=== PATIENT | male | born 1950 | race Caucasian/White ===

== ENCOUNTER 2017-05-07 18:29 | Emergency (ER) | payer MEDICARE, BC ==
[2017-05-07 18:41] VITALS: BP 104/77
--- NOTE | 2017-05-07 19:07 | EDM.PDOC ---
ED HPI GENERAL MEDICAL PROBLEM - General Chief Complaint: ENT Problem Stated Complaint: BAD EARACHE Time Seen by Provider: 05/07/17 18:55 Source of Information: Reports: Patient History Limitations: Reports: No Limitations - History of Present Illness INITIAL COMMENTS - FREE TEXT/NARRATIVE: Patient presents to emergency room tonight with complaints of left ear pain and drainage for 1.5 days. Quality: Reports: Ache, Throbbing Severity: Moderate Improves with: Reports: Other (Tried OTC earache drops without relief) Associated Symptoms: Reports: No Other Symptoms Treatments TOOLING SPECIALIST: Reports: Acetaminophen Left Ear Pain Score (Numeric/FACES): 8 - Related Data Allergies Allergy/AdvReac Type Severity Reaction Status Date / Time latex Allergy Rash Verified 10/09/15 19:08 Penicillins Allergy Cannot Verified 10/09/15 19:08 Remember Home Meds: Home Meds buPROPion [buPROPion XL] 300 mg PO DAILY 01/04/15 [History] Allopurinol [Zyloprim] 100 mg PO DAILY 10/09/15 [History] Aspirin [Adult Low Dose Aspirin EC] 81 mg PO DAILY 10/09/15 [History] Furosemide [Lasix] 40 mg PO DAILY 10/09/15 [History] Multivitamin [Multi-Day Vitamins] 1 each PO DAILY 10/09/15 [History] Propranolol [Inderal] 20 mg PO TID 10/09/15 [History] lamoTRIgine 25 mg PO BID 10/09/15 [History] Gabapentin [Neurontin] 400 mg PO DAILY 01/14/16 [History] amLODIPine [Norvasc] 2.5 mg PO DAILY 01/14/16 [History] Ciprofloxacin HCl 750 mg PO DAILY 01/15/16 [History] FLUoxetine [PROzac] 20 mg PO TID 01/15/16 [History] Hydrocodone/Acetaminophen [[place] 5-325] 1 tab PO Q4HR PRN 01/15/16 [History] Past Medical History HEENT History: Reports: Impaired Vision, Other (See Below) Other HEENT History: Wears glasses Cardiovascular History: Reports: High Cholesterol, Hypertension Respiratory History: Reports: Pneumonia, Recurrent, Sleep Apnea Other Respiratory History: Seasonal asthma Gastrointestinal History: Reports: None Genitourinary History: Reports: Other (See Below) Other Genitourinary History: renal failure Musculoskeletal History: Reports: Fracture, Gout Neurological History: Reports: Other (See Below) Other Neuro History: tremors Psychiatric History: Reports: Anxiety, Depression Immunologic History: Reports: Other (See Below) Other Immunologic History: on dialysis - Infectious Disease History Infectious Disease History: Reports: Chicken Pox - Past Surgical History GI Surgical History: Reports: Colonoscopy, Other (See Below) Social & Family History - Family History Family Medical History: Noncontributory - Tobacco Use Smoking Status *Q: Never Smoker Second Hand Smoke Exposure: No - Caffeine Use Caffeine Use: Reports: Coffee - Recreational Drug Use Recreational Drug Use: No ED ROS ENT - Review of Systems Review Of Systems: See Below Constitutional: Denies: Fever, Chills, Malaise HEENT: Reports: Ear Discharge, Ear Pain, Hearing Loss. Denies: Dental Pain, Eye Pain, Nose Pain, Rhinitis, Sinus Problem, Throat Pain, Throat Swelling, Vertigo Cardiovascular: Denies: Chest Pain, Dyspnea on Exertion, Edema, Syncope Endocrine: Reports: No Symptoms GI/Abdominal: Reports: No Symptoms : Reports: No Symptoms Musculoskeletal: Reports: No Symptoms Skin: Reports: No Symptoms Neurological: Reports: No Symptoms Psychiatric: Reports: No Symptoms Hematologic/Lymphatic: Reports: No Symptoms Immunologic: Reports: No Symptoms ED EXAM, ENT - Physical Exam Exam: See Below Text/Narrative:: Morgan is an alert and oriented 66 hear old male presenting with left ear pain and drainage for 36 hours. Exam Limited By: No Limitations General Appearance: Alert, WD/WN, No Apparent Distress Eye Exam: Bilateral Eye: EOMI, Normal Inspection, PERRL Ears: Hearing Loss, Auricular Tenderness, Canal Discharge, TM Dullness, TM Erythema, Other (to left TM. Right TM pearly saunders without erythema or discharge. ). No: TM Perforation Nose: Normal Inspection, Normal Mucousa, No Blood Mouth/Throat: Normal Inspection, Normal Gums, Normal Lips, Normal Oropharynx, Normal Teeth Head: Atraumatic, Normocephalic Neck: Normal Inspection, Supple, Non-Tender, Full Range of Motion. No: Lymphadenopathy (R), Lymphadenopathy (L) Respiratory/Chest: No Respiratory Distress, Lungs Clear, Normal Breath Sounds, No Accessory Muscle Use, Chest Non-Tender Cardiovascular: Normal Peripheral Pulses, Regular Rate, Rhythm, No Edema, No Gallop, No Murmur, No Rub GI/Abdominal: Normal Bowel Sounds, Soft, Non-Tender Back: Normal Inspection, Full Range of Motion. No: CVA Tenderness (R), CVA Tenderness (L) Extremities: Normal Inspection, Normal Range of Motion, Non-Tender, No Pedal Edema, Normal Capillary Refill Neurological: Alert, Oriented, CN II-XII Intact, Normal Cognition, Normal Gait, No Motor/Sensory Deficits Psychiatric: Normal Affect, Normal Mood Skin: Warm, Dry, Intact, Normal Color, No Rash Lymphatic: No Adenopathy Course - Vital Signs Last Recorded V/S: Last Vital Signs Temp 36.2 C 05/07/17 18:40 Pulse 62 05/07/17 18:40 Resp 16 05/07/17 18:40 BP 104/77 05/07/17 18:40 Pulse Ox 95 05/07/17 18:40 Departure - Departure Time of Disposition: 19:05 Disposition: Home, Self-Care 01 Condition: Good Clinical Impression: Otitis externa - Discharge Information Instructions: Otitis Externa Referrals: Gilmar Clarke MD [Primary Care Provider] - Forms: ED Department Discharge Additional Instructions: Keep ear clean and dry. Cipro/dexamethasone ear drops, 4 drops to left ear twice per day for seven days. May use tramadol 50mg, one tablet three times a day for 2 days as needed for pain not controlled with acetaminophen. Follow up with Dr. Clarke in 7 to 10 days for recheck. Return for any worsening. - Assessment/Plan Assessment:: Left otitis externa Plan: Keep ear clean and dry. Cipro/dexamethasone ear drops, 4 drops to left ear twice per day for seven days. May use tramadol 50mg, one tablet three times a day for 2 days as needed for pain not controlled with acetaminophen. Follow up with Dr. Clarke in 7 to 10 days for recheck. Return for any worsening.
== END 2017-05-07 19:18 | disposition home or self-care (01) ==
LOC: JP.ED 18:29
DX: H60.92 Unspecified otitis externa, left ear (principal); E78.00 Pure hypercholesterolemia, unspecified; I10 Essential (primary) hypertension; F41.9 Anxiety disorder, unspecified; F32.9 Major depressive disorder, single episode, unspecified; Z87.01 Personal history of pneumonia (recurrent); Z79.899 Other long term (current) drug therapy; Z91.040 Latex allergy status; Z88.0 Allergy status to penicillin; Z79.82 Long term (current) use of aspirin
CPT/HCPCS: 99283

== ENCOUNTER 2017-05-08 10:32 | Emergency (ER) | payer MEDICARE, BC ==
--- NOTE | 2017-05-08 12:12 | EDM.PDOC ---
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 Daughter called neurologist who's triage nurse advised EMS transport to ED d/t emisis. Patient very limited historian, reviewed old records and history obtained from his daughter who was with him. Sz described as generalized tonic/clonic, with central gaze fixation (no eye deviation). No incontinence or oral injury sustained, but did land on his face in the shower sustaining minor contusion to OS lower lid. Last week has had 2 other seizures. Daughter reports recent (last month) increase in Lamictal dose, but it doesn't seem to be working. No neck pain, facial pain, dental malocclusion, diplopia or headache. Daughter has noted that poor sleep has been a problem due to having to get up frequently to urinate, resulting in falls, as well as not following up to get a new CPAP machine. No generalized symptoms, complaints of pain anywhere, has noted a URI in last week (see y-day note) w/ continued "popping" in his year. No f/c/ns, no change in quality of peritoneal dialisis output, abdominal pain, change in appetite. This am had emisis of recent breakfast content at end of sz (non-bilious) Onset: Today Duration: Minutes:, Getting Worse, Resolved Prior to Arrival Quality: Denies: Ache, Sharp Improves with: Reports: None Associated Symptoms: Reports: No Other Symptoms, Seizure, Weakness. Denies: Chest Pain, Cough, Fever/Chills, Headaches, Loss of Appetite, Nausea/Vomiting - Related Data Allergies Allergy/AdvReac Type Severity Reaction Status Date / Time latex Allergy Rash Verified 10/09/15 19:08 Penicillins Allergy Cannot Verified 10/09/15 19:08 Remember Home Meds: Home Meds buPROPion [buPROPion XL] 300 mg PO DAILY 01/04/15 [History] Allopurinol [Zyloprim] 100 mg PO DAILY 10/09/15 [History] Aspirin [Adult Low Dose Aspirin EC] 81 mg PO DAILY 10/09/15 [History] Furosemide [Lasix] 40 mg PO DAILY 10/09/15 [History] Multivitamin [Multi-Day Vitamins] 1 each PO DAILY 10/09/15 [History] Propranolol [Inderal] 20 mg PO TID 10/09/15 [History] lamoTRIgine 25 mg PO BID 10/09/15 [History] Gabapentin [Neurontin] 400 mg PO DAILY 01/14/16 [History] amLODIPine [Norvasc] 2.5 mg PO DAILY 01/14/16 [History] FLUoxetine [PROzac] 60 mg PO TID 01/15/16 [History] Hydrocodone/Acetaminophen [[place] 5-325] 1 tab PO Q4HR PRN 01/15/16 [History] Neomycin/Polymyxin B Sulf/HC [Urvygter-Kvghnetxq-Bd Ear Soln] 10 ml OT QID 05/08 [History] traMADol [Ultram] 50 mg PO TID PRN 05/08/17 [History] Past Medical History HEENT History: Reports: Impaired Vision, Other (See Below) Other HEENT History: Wears glasses Cardiovascular History: Reports: High Cholesterol, Hypertension Respiratory History: Reports: Pneumonia, Recurrent, Sleep Apnea Other Respiratory History: Seasonal asthma Gastrointestinal History: Reports: None Genitourinary History: Reports: Other (See Below) Other Genitourinary History: renal failure Musculoskeletal History: Reports: Fracture, Gout Neurological History: Reports: Seizure, Other (See Below) Other Neuro History: tremors Psychiatric History: Reports: Anxiety, Depression Immunologic History: Reports: Other (See Below) Other Immunologic History: on dialysis - Infectious Disease History Infectious Disease History: Reports: Chicken Pox - Past Surgical History GI Surgical History: Reports: Colonoscopy Social & Family History - Family History Family Medical History: Noncontributory - Tobacco Use Smoking Status *Q: Never Smoker Second Hand Smoke Exposure: No - Caffeine Use Caffeine Use: Reports: Coffee - Recreational Drug Use Recreational Drug Use: No ED ROS GENERAL - Review of Systems Review Of Systems: See Below (very limited historian) Constitutional: Denies: Fever, Chills, Diaphoresis HEENT: Reports: Other (small hematoma/contusion OS lower orbital rim, no bony injury/TTP) Respiratory: Denies: Shortness of Breath, Cough Cardiovascular: Denies: Chest Pain GI/Abdominal: Denies: Abdominal Pain, Black Stool, Bloody Stool, Constipation, Diarrhea : Reports: Urgency. Denies: Incontinence Musculoskeletal: Reports: No Symptoms Skin: Reports: No Symptoms Neurological: Reports: Confusion, Dizziness, Pre-Existing Deficit, Seizure, Tremors, Difficulty Walking. Denies: Headache, Numbness, Syncope, Tingling Psychiatric: Reports: Confusion Hematologic/Lymphatic: Reports: No Symptoms Immunologic: Reports: No Symptoms ED EXAM, NEURO - Physical Exam Exam: See Below Exam Limited By: Altered Mental Status General Appearance: Alert, WD/WN, No Apparent Distress Ears: Other (L tm retracted, no e/o ottitis). No: Normal TMs Nose: Normal Inspection. No: Nasal Deformity, Nasal Swelling Throat/Mouth: Normal Inspection, Normal Lips, Normal Teeth Head Exam: Atraumatic, Normocephalic. No: Facial Swelling, Facial Tenderness, Sinus Tenderness Neck: Normal Inspection, Supple, Non-Tender, Full Range of Motion Respiratory/Chest: No Respiratory Distress, Crackles (R base) Cardiovascular: Normal Peripheral Pulses GI/Abdominal: Normal Bowel Sounds, Soft, Non-Tender, No Distention Neurological: Alert, Normal Mood/Affect, Normal Dorsiflexion, CN II-XII Intact, Normal Plantar Flexion, Normal Reflexes, No Motor/Sensory Deficits, Ataxia, Abnormal Finger to Nose, Tremor. No: Normal Gait, Oriented x 3, Babinski Back Exam: Normal Inspection. No: CVA Tenderness (R), CVA Tenderness (L), Decreased Range of Motion, Muscle Spasm, Vertebral Tenderness Extremities: Normal Inspection, Normal Range of Motion, Non-Tender Psychiatric: Normal Mood, Other (at baseline level of confusion per daughter) Skin Exam: Warm, Dry, Intact Comments: Neuro: PERRLA no APD, EOMI but some lat gaze nystagmus noted, no rotatory component. Motor x 4 intact, but legs weak (still 5/5). Gross tremor noted, no "pill rolling". Ataxic HKS and FNF Course - Vital Signs Last Recorded V/S: Last Vital Signs Temp 36.9 C 05/08/17 10:43 Pulse 56 L 05/08/17 15:33 Resp 15 05/08/17 14:37 BP 109/59 L 05/08/17 15:33 Pulse Ox 97 05/08/17 14:37 - Orders/Labs/Meds Orders: Active Orders 24 hr Category Date Time Status Chest 1V Frontal [CR] Stat Exams 05/08/17 11:42 Taken Head wo Cont [CT] Stat Exams 05/08/17 11:39 Taken CULTURE URINE [RM] Stat Lab 05/08/17 14:44 Received LAMOTRIGINE [REF] Stat Lab 05/08/17 12:05 Received Labs: Laboratory Tests 05/08/17 05/08/17 05/08/17 Range/Units 12:05 12:05 12:07 WBC 14.2 H (4.5-11.0) K/uL RBC 3.29 L (4.30-5.90) M/uL Hgb 10.8 L D (12.0-15.0) g/dL Hct 32.3 L (40.0-54.0) % MCV 98 (80-98) fL MCH 33 H (27-31) pg MCHC 33 (32-36) % Plt Count 329 (150-400) K/uL Neut % (Auto) 79 H (36-66) % Lymph % (Auto) 11 L (24-44) % [place] % (Auto) 8 H (2-6) % Eos % (Auto) 3 (2-4) % Baso % (Auto) 0 (0-1) % Sodium 130 L (140-148) mmol/L Potassium 4.7 (3.6-5.2) mmol/L Chloride 95 L (100-108) mmol/L Carbon Dioxide 30 (21-32) mmol/L Anion Gap 9.7 (5.0-14.0) mmol/L BUN 54 H D (7-18) mg/dL Creatinine 6.9 H* D (0.8-1.3) mg/dL Est Cr Clr Drug Dosing 10.53 mL/min Estimated GFR (MDRD) 8 L (>60) Glucose 111 H (74-106) mg/dL Calcium 8.2 L (8.5-10.1) mg/dL POC WB Ioniz Calcium 1.05 L (1.12-1.32) mmol/L Total Bilirubin 0.5 (0.2-1.0) mg/dL AST 23 (15-37) U/L ALT 19 (12-78) U/L Alkaline Phosphatase 105 (46-116) U/L Total Protein 7.6 (6.4-8.2) g/dL Albumin 2.5 L (3.4-5.0) g/dL Globulin 5.1 H (2.3-3.5) g/dL Albumin/Globulin Ratio 0.5 L (1.2-2.2) Urine Color Urine Appearance Urine pH (4.5-8.0) Ur Specific [place] (1.008-1.030) Urine Protein (NEGATIVE) mg/dL Urine Glucose (UA) (NEGATIVE) mg/dL Urine Ketones (NEGATIVE) mg/dL Urine Occult Blood (NEGATIVE) Urine Nitrite (NEGAITVE) Urine Bilirubin (NEGATIVE) Urine Urobilinogen (NORMAL) mg/dL Ur Leukocyte Esterase (NEGATIVE) Urine RBC (0-5) Urine WBC (0-5) Ur Epithelial Cells Amorphous Sediment Urine Bacteria Urine Mucus 05/08/17 Range/Units 14:37 WBC (4.5-11.0) K/uL RBC (4.30-5.90) M/uL Hgb (12.0-15.0) g/dL Hct (40.0-54.0) % MCV (80-98) fL MCH (27-31) pg MCHC (32-36) % Plt Count (150-400) K/uL Neut % (Auto) (36-66) % Lymph % (Auto) (24-44) % [place] % (Auto) (2-6) % Eos % (Auto) (2-4) % Baso % (Auto) (0-1) % Sodium (140-148) mmol/L Potassium (3.6-5.2) mmol/L Chloride (100-108) mmol/L Carbon Dioxide (21-32) mmol/L Anion Gap (5.0-14.0) mmol/L BUN (7-18) mg/dL Creatinine (0.8-1.3) mg/dL Est Cr Clr Drug Dosing mL/min Estimated GFR (MDRD) (>60) Glucose (74-106) mg/dL Calcium (8.5-10.1) mg/dL POC WB Ioniz Calcium (1.12-1.32) mmol/L Total Bilirubin (0.2-1.0) mg/dL AST (15-37) U/L ALT (12-78) U/L Alkaline Phosphatase (46-116) U/L Total Protein (6.4-8.2) g/dL Albumin (3.4-5.0) g/dL Globulin (2.3-3.5) g/dL Albumin/Globulin Ratio (1.2-2.2) Urine Color Yellow Urine Appearance Clear Urine pH 8.0 (4.5-8.0) Ur Specific [place] 1.015 (1.008-1.030) Urine Protein 30 H (NEGATIVE) mg/dL Urine Glucose (UA) Normal (NEGATIVE) mg/dL Urine Ketones Negative (NEGATIVE) mg/dL Urine Occult Blood Moderate (NEGATIVE) Urine Nitrite Negative (NEGAITVE) Urine Bilirubin Negative (NEGATIVE) Urine Urobilinogen Normal (NORMAL) mg/dL Ur Leukocyte Esterase Negative (NEGATIVE) Urine RBC 5-10 H (0-5) Urine WBC 0-5 (0-5) Ur Epithelial Cells Few Amorphous Sediment Few Urine Bacteria Rare Urine Mucus Few - Radiology Interpretation Free Text/Narrative:: Head CT showed L busby sinusitis but o/w w/o abnormality, no SDH, etc. CXR shows no e/o aspiration. Worsened labs all c/w progressive renal failure. Departure - Departure Time of Disposition: 15:52 Disposition: Home, Self-Care 01 Clinical Impression: Seizure, Seizure disorder Chronic renal failure Qualifiers: Chronic kidney disease stage: unspecified stage Qualified Code(s): N18.9 - Chronic kidney disease, unspecified - Discharge Information Instructions: Epilepsy, [id number] Referrals: Gilmar Clarke MD [Primary Care Provider] - Forms: ED Department Discharge Additional Instructions: Use bedside urinal at night. Follow up with your kidney doctor and neurologist Jostin twice a day for three days, then once a day Steroid nasal spray Care Plan Goals: Call your Physician or Return to Emergency Department if: * Your condition worsens in any way. * You develop fever greater than 100.4. * You have vomiting. * You have pain that is not controlled with medications. Follow up with Dr Prado Use bedside urinal at night Follow up with your sleep study/new CPAP PERRI - My Orders Last 24 Hours: My Active Orders 05/08/17 11:39 Head wo Cont [CT] Stat 05/08/17 11:42 Chest 1V Frontal [CR] Stat 05/08/17 12:05 LAMOTRIGINE [REF] Stat 05/08/17 14:44 CULTURE URINE [RM] Stat - Assessment/Plan Last 24 Hours: My Active Orders 05/08/17 11:39 Head wo Cont [CT] Stat 05/08/17 11:42 Chest 1V Frontal [CR] Stat 05/08/17 12:05 LAMOTRIGINE [REF] Stat 05/08/17 14:44 CULTURE URINE [RM] Stat Assessment:: No e/o any sort of acute neurologic compromise, but concerning worsening renal function on CAPD. Mild hypocalcemia c/w renal failure, as is anemia. Exam c/w non-infectious eustacian tube dysfunction & sinusitis. Will tx w/o abx for now as asymptomatic and no objective e/o ifxn. Plan: Follow up with existing care providers, Afrin/OTC steroid nasal spray.
[2017-05-08 15:33] VITALS: BP 109/59
--- NOTE | 2017-05-10 11:53 | CR ---
Low lung volumes. Tortuous aorta. No focal consolidation. Pulmonary vasculature within normal limits.
== END 2017-05-08 16:20 | disposition home or self-care (01) ==
LOC: JP.ED 10:32
DX: G40.909 Epilepsy, unspecified, not intractable, without status epilepticus (principal); I12.9 Hypertensive chronic kidney disease with stage 1 through stage 4 chronic kidney disease, or unspecified chronic kidney disease; N18.9 Chronic kidney disease, unspecified; E78.00 Pure hypercholesterolemia, unspecified; Z79.82 Long term (current) use of aspirin; Z79.899 Other long term (current) drug therapy
CPT/HCPCS: 36415; 70450; 71010; 71010-26; 80053; 80175; 81001; 82272; 82330; 85025; 87086; 99284

== ENCOUNTER 2017-06-28 03:29 | Emergency (ER) | payer MEDICARE, BC ==
[2017-06-28] MEDS ORDERED: LORazepam 2 MG/ML MDV IVPUSH ONE (04:18)
[2017-06-28] MEDS ORDERED: Sodium Chloride 0.9% 1,000 ML IV SCH (04:30)
[2017-06-28] MEDS ORDERED: Prochlorperazine 10 MG/2 ML SDV IVPUSH ONE ×2 (04:47→08:10)
--- NOTE | 2017-06-28 06:28 | EDM.PDOC ---
<Sergio Chowdhury - Last Filed: 06/28/17 06:22> ED HPI GENERAL MEDICAL PROBLEM - General Chief Complaint: Gastrointestinal Problem Stated Complaint: MEDICAL [facility]IA [facility] Time Seen by Provider: 06/28/17 04:08 Source of Information: Reports: Patient, Family History Limitations: Reports: Physical Impairment - History of Present Illness INITIAL COMMENTS - FREE TEXT/NARRATIVE: This gentleman is a peritoneal dialysis patient. He presents with severe nausea and vomiting and vertigo. This began about 3 AM after he had mistakenly infused the wrong bag of dialysis fluid. Previously he was supposed to use a yellow bag and a green bag but recently he was told to use just to yellow bags. This morning he mistakenly went back to the previous regiment that is a yellow and a green bag. Shortly after that he began having severe vertigo nausea and vomiting. This was so severe he was lying on the floor and his couldn't get him up. He doesn't think this is related to head movement. He must keep his eyes closed since it helps control the nausea little bit. He's had some problems with his right ear lately and his says it was just swimmers ear. It's not bothering him now - Related Data Allergies Allergy/AdvReac Type Severity Reaction Status Date / Time latex Allergy Rash Verified 06/28/17 03:49 Penicillins Allergy Cannot Verified 06/28/17 03:49 Remember Home Meds: Home Meds Allopurinol [Zyloprim] 200 mg PO DAILY 10/09/15 [History] Aspirin [Adult Low Dose Aspirin EC] 81 mg PO DAILY 10/09/15 [History] Furosemide [Lasix] 40 mg PO DAILY 10/09/15 [History] Propranolol [Inderal] 120 mg PO TID 10/09/15 [History] lamoTRIgine 50 mg PO BEDTIME 10/09/15 [History] Gabapentin [Neurontin] 400 mg PO DAILY 01/14/16 [History] Neomycin/Polymyxin B Sulf/HC [Wtybsmtk-Kujpuldaq-De Ear Soln] 10 ml OT QID 05/08 [History] Folic Acid/Vitamin B Comp W-C [Dialyvite] 1 tab PO DAILY 06/28/17 [History] Magnesium Oxide [Magnesium] 400 mg PO BID 06/28/17 [History] lamoTRIgine [Lamotrigine] 25 mg PO DAILY 06/28/17 [History] Past Medical History HEENT History: Reports: Impaired Vision, Other (See Below) Other HEENT History: Wears glasses Cardiovascular History: Reports: High Cholesterol, Hypertension Respiratory History: Reports: Asthma, Pneumonia, Recurrent, Sleep Apnea Other Respiratory History: Seasonal asthma Gastrointestinal History: Reports: None Genitourinary History: Reports: Chronic Renal Insuffiency, Dialysis, Peritoneal , Renal Disease, Other (See Below) Other Genitourinary History: renal failure Musculoskeletal History: Reports: Fracture, Gout Neurological History: Reports: Seizure, Other (See Below) Other Neuro History: tremors, idiopathetic progressive neuropathy, mild cognitive impairment Psychiatric History: Reports: Anxiety, Depression Immunologic History: Reports: Other (See Below) Other Immunologic History: on dialysis - Infectious Disease History Infectious Disease History: Reports: Chicken Pox - Past Surgical History HEENT Surgical History: Reports: Other (See Below) Other HEENT Surgeries/Procedures: deviated spetum surgery x2. GI Surgical History: Reports: Colonoscopy Male Surgical History: Reports: Vasectomy Musculoskeletal Surgical History: Reports: Other (See Below) Other Musculoskeletal Surgeries/Procedures:: right ankle Social & Family History - Family History Family Medical History: Noncontributory - Tobacco Use Smoking Status *Q: Never Smoker Second Hand Smoke Exposure: No - Caffeine Use Caffeine Use: Reports: Coffee - Recreational Drug Use Recreational Drug Use: No ED ROS GENERAL - Review of Systems Review Of Systems: Unable To Obtain (Nearly all the history is given by his since patient is quite ill) ED EXAM, GI/ABD - Physical Exam Exam: See Below Exam Limited By: Physical Impairment General Appearance: Alert, WD/WN, Severe Distress (Severe vomiting and dry heaves) Eyes: Bilateral: EOMI (PERRLA ), Nystagmus (Horizontal nystagmus) Ears: Normal TMs Nose: Normal Inspection Throat/Mouth: Normal Oropharynx Head: Atraumatic Neck: Normal Inspection Respiratory/Chest: Lungs Clear Cardiovascular: Regular Rate, Rhythm GI/Abdominal Exam: Soft, Non-Tender Extremities: Normal Inspection Neurological: Alert, Oriented, CN II-XII Intact (Last diagnosis previously noted ), Normal Cognition Psychiatric: Normal Affect Skin Exam: Warm, Dry Course - Vital Signs Last Recorded V/S: Last Vital Signs Temp 97 F 06/28/17 03:47 Pulse 62 06/28/17 07:53 Resp 16 06/28/17 07:53 BP 186/116 H 06/28/17 07:53 Pulse Ox 93 L 06/28/17 07:53 - Orders/Labs/Meds Orders: Active Orders 24 hr Category Date Time Status Head wo Cont [CT] Stat Exams 06/28/17 04:37 Taken Labs: Laboratory Tests 06/28/17 06/28/17 Range/Units 05:00 05:00 WBC 14.7 H (4.5-11.0) K/uL RBC 2.81 L (4.30-5.90) M/uL Hgb 9.0 L (12.0-15.0) g/dL Hct 27.9 L (40.0-54.0) % MCV 99 H (80-98) fL MCH 32 H (27-31) pg MCHC 32 (32-36) % Plt Count 409 H (150-400) K/uL Neut % (Auto) 83 H (36-66) % Lymph % (Auto) 9 L (24-44) % Kinney % (Auto) 6 (2-6) % Eos % (Auto) 2 (2-4) % Baso % (Auto) 0 (0-1) % Sodium 135 L (140-148) mmol/L Potassium 4.1 (3.6-5.2) mmol/L Chloride 99 L (100-108) mmol/L Carbon Dioxide 25 (21-32) mmol/L Anion Gap 15.1 H (5.0-14.0) mmol/L BUN 46 H (7-18) mg/dL Creatinine 5.7 H* (0.8-1.3) mg/dL Est Cr Clr Drug Dosing 12.75 mL/min Estimated GFR (MDRD) 10 L (>60) Glucose 129 H (74-106) mg/dL Calcium 8.3 L (8.5-10.1) mg/dL Total Bilirubin 0.7 (0.2-1.0) mg/dL AST 23 (15-37) U/L ALT 18 (12-78) U/L Alkaline Phosphatase 73 (46-116) U/L Total Protein 7.1 (6.4-8.2) g/dL Albumin 2.1 L (3.4-5.0) g/dL Globulin 5.0 H (2.3-3.5) g/dL Albumin/Globulin Ratio 0.4 L (1.2-2.2) Meds: Medications Discontinued Medications Generic Name Dose Route Start Last Admin Trade Name Eladio PRN Reason Stop Dose Admin Sodium Chloride 1,000 mls @ 999 mls/hr 06/28/17 04:30 06/28/17 04:21 Normal Saline IV 999 mls/hr ASDIRECTED GLORIA Administration Lorazepam 1 mg 06/28/17 04:18 06/28/17 04:25 Ativan IVPUSH 06/28/17 04:19 1 mg ONETIME ONE Administration Ondansetron HCl 4 mg 06/28/17 07:47 06/28/17 07:51 Zofran IVPUSH 06/28/17 07:48 4 mg ONETIME ONE Administration Prochlorperazine Edisylate 5 mg 06/28/17 04:47 06/28/17 04:58 Compazine IVPUSH 06/28/17 04:48 5 mg ONETIME ONE Administration Prochlorperazine Edisylate 10 mg 06/28/17 08:10 06/28/17 08:17 Compazine IVPUSH 06/28/17 08:11 10 mg ONETIME ONE Administration - Radiology Interpretation Free Text/Narrative:: CT of the head showed no acute intracranial process - Re-Assessments/Exams Free Text/Narrative Re-Assessment/Exam: 06/28/17 06:31 This patient had received 4 mg IV Zofran by EMS but that gave little benefit. Since this last diagnosis and vomiting seemed possibly related to a middle ear problem I gave him Ativan 1 mg IV. Within began a bolus of 1 L IV normal saline. He had already received 500 mL by EMS. An EKG was performed which showed a sinus rhythm at 58 bpm some borderline left axis deviation and borderline prolonged QT but no ischemic changes When the patient came back from CT he was still having significant nausea so he received Compazine 5 mg IV. This seemed to control his symptoms pretty well. I examined his eyes again and I no longer see any nystagmus. I did do some cerebellar checks such as rapid alternating movements of the hands and heel to li testing which he did fairly well on. He was too ill to do anything else. I' m convinced that this is not a cerebellar stroke. He is moderately sedated. He arouses to voice. At this point I'm not sure if this has any relationship to his dialysis or not. Labs were reviewed there is nothing unusual about them. Once the patient is awake and alert he'll need to be reexamined. Departure - Departure Disposition: DC/Tfer to Other 70 Clinical Impression: Vertigo Intractable nausea and vomiting Qualifiers: Vomiting type: unspecified Qualified Code(s): R11.2 - Nausea with vomiting, unspecified Renal failure Qualifiers: Renal failure chronicity: chronic Chronic kidney disease stage: on chronic dialysis Qualified Code(s): N18.6 - End stage renal disease - Discharge Information Referrals: Gilmar Clarke MD [Primary Care Provider] - Forms: ED Department Discharge Care Plan Goals: Due to our being unable to control the patient's symptoms, he was transferred to [place] to continue symptomatic care, evaluation, and peritoneal dialysis. <Maximilian Patel - Last Filed: 06/28/17 08:51> Course - Re-Assessments/Exams Free Text/Narrative Re-Assessment/Exam: 06/28/17 08:06 Received patient care from Dr. Chowdhury, pending the patient wakening to see if his symptoms had improved. When he woke he still had intense nausea and any movement caused emesis. There was no headache. He wanted to try to go home but when he sat up to try to put his shirt on he had to lay back down. There is just no way this patient can be discharged. I discussed his condition with neurology and the hospitalist service at [facility] in [place], and he was kindly accepted to be evaluated. 06/28/17 08:10 Patient was given 4 mg of Zofran which did nothing. He seemed to respond to 5 mg of Compazine IV 4 hours ago so this was repeated although a a 10 mg dose. Departure - Departure Time of Disposition: 08:45 Condition: Fair
[2017-06-28] MEDS ORDERED: Ondansetron 4 MG/2 ML SDV IVPUSH ONE (07:47)
[2017-06-28 07:54] VITALS: BP 186/116
== END 2017-06-28 08:46 | disposition other institution (70) ==
LOC: JP.ED 03:29
DX: I12.0 Hypertensive chronic kidney disease with stage 5 chronic kidney disease or end stage renal disease (principal); N18.6 End stage renal disease; F32.9 Major depressive disorder, single episode, unspecified; R11.2 Nausea with vomiting, unspecified; Z99.2 Dependence on renal dialysis; Z79.899 Other long term (current) drug therapy; Z88.0 Allergy status to penicillin; Z91.040 Latex allergy status; Z79.82 Long term (current) use of aspirin
CPT/HCPCS: 36415; 70450; 80053; 85025; 93005; 93010; 96361; 96374; 96375; 96376; 99285; J0780; J2060; J2405; J7040

== ENCOUNTER 2017-07-16 11:48 | Emergency (ER) | payer MEDICARE, BC ==
--- NOTE | 2017-07-16 12:56 | EDM.PDOC ---
ED HPI GENERAL MEDICAL PROBLEM - General Chief Complaint: General Stated Complaint: dizzy Time Seen by Provider: 07/16/17 12:45 Source of Information: Reports: Patient, RN Notes Reviewed History Limitations: Reports: No Limitations - History of Present Illness INITIAL COMMENTS - FREE TEXT/NARRATIVE: 66-year-old gentleman known history of end-stage renal disease on peritoneal dialysis accidentally took a double dose of lisinopril this morning normally takes 5 mg bid accidentally took 10 mg. Reported to the clinic for evaluation he was hypotensive in the clinic systolic blood pressures on 80 he did not feel well subsequent transported to the emergency department for further evaluation, review of literature shows half-life of lisinopril to be 12 hours - Related Data Allergies Allergy/AdvReac Type Severity Reaction Status Date / Time latex Allergy Rash Verified 06/28/17 03:49 Penicillins Allergy Cannot Verified 06/28/17 03:49 Remember Home Meds: Home Meds Allopurinol [Zyloprim] 200 mg PO DAILY 10/09/15 [History] Aspirin [Adult Low Dose Aspirin EC] 81 mg PO DAILY 10/09/15 [History] Furosemide [Lasix] 40 mg PO DAILY 10/09/15 [History] Propranolol [Inderal] 60 mg PO BID 10/09/15 [History] lamoTRIgine 50 mg PO BEDTIME 10/09/15 [History] Neomycin/Polymyxin B Sulf/HC [Hasmuqmo-Kwttftinj-Kl Ear Soln] 10 ml OT QID 05/08 [History] Folic Acid/Vitamin B Comp W-C [Dialyvite] 1 tab PO DAILY 06/28/17 [History] Magnesium Oxide [Magnesium] 400 mg PO BID 06/28/17 [History] lamoTRIgine [Lamotrigine] 25 mg PO QAM 06/28/17 [History] Ciprofloxacin [IMW: Ciprofloxacin HCl] 750 mg PO ASDIRECTED PRN 07/16/17 [ History] Gabapentin [Neurontin] 1 tab PO DAILY 07/16/17 [History] Lisinopril 1 tab PO DAILY 07/16/17 [History] Past Medical History HEENT History: Reports: Impaired Vision, Other (See Below) Other HEENT History: Wears glasses Cardiovascular History: Reports: High Cholesterol, Hypertension Respiratory History: Reports: Asthma, Pneumonia, Recurrent, Sleep Apnea Other Respiratory History: Seasonal asthma Genitourinary History: Reports: Chronic Renal Insuffiency, Dialysis, Peritoneal , Renal Disease, Other (See Below) Other Genitourinary History: renal failure Musculoskeletal History: Reports: Fracture, Gout Neurological History: Reports: Seizure, Other (See Below) Other Neuro History: tremors, idiopathetic progressive neuropathy, mild cognitive impairment Psychiatric History: Reports: Anxiety, Depression Immunologic History: Reports: Other (See Below) Other Immunologic History: on dialysis - Infectious Disease History Infectious Disease History: Reports: Chicken Pox - Past Surgical History HEENT Surgical History: Reports: Other (See Below) Other HEENT Surgeries/Procedures: deviated spetum surgery x2. GI Surgical History: Reports: Colonoscopy Male Surgical History: Reports: Vasectomy Musculoskeletal Surgical History: Reports: Other (See Below) Other Musculoskeletal Surgeries/Procedures:: right ankle Social & Family History - Family History Family Medical History: Noncontributory - Tobacco Use Smoking Status *Q: Never Smoker Second Hand Smoke Exposure: No - Caffeine Use Caffeine Use: Reports: Coffee - Recreational Drug Use Recreational Drug Use: No ED ROS GENERAL - Review of Systems Review Of Systems: See Below Constitutional: Reports: No Symptoms HEENT: Reports: No Symptoms Respiratory: Reports: No Symptoms Cardiovascular: Reports: Blood Pressure Problem GI/Abdominal: Reports: No Symptoms : Reports: No Symptoms ED EXAM, GENERAL - Physical Exam Exam: See Below Exam Limited By: No Limitations General Appearance: Alert, WD/WN, No Apparent Distress Respiratory/Chest: No Respiratory Distress, Lungs Clear, Normal Breath Sounds, No Accessory Muscle Use Cardiovascular: Regular Rate, Rhythm, No Murmur Course - Vital Signs Last Recorded V/S: Last Vital Signs Temp 96.6 F 07/16/17 12:27 Pulse 65 07/16/17 13:30 Resp 16 07/16/17 13:30 BP 92/68 07/16/17 13:30 Pulse Ox 98 07/16/17 13:30 - Orders/Labs/Meds Labs: Laboratory Tests 07/16/17 07/16/17 Range/Units 13:05 13:05 WBC 11.2 H (4.5-11.0) K/uL RBC 2.98 L (4.30-5.90) M/uL Hgb 9.6 L (12.0-15.0) g/dL Hct 30.4 L (40.0-54.0) % MCV 102 H (80-98) fL MCH 32 H (27-31) pg MCHC 32 (32-36) % Plt Count 443 H (150-400) K/uL Neut % (Auto) 69 H (36-66) % Lymph % (Auto) 19 L (24-44) % Patrick % (Auto) 10 H (2-6) % Eos % (Auto) 2 (2-4) % Baso % (Auto) 0 (0-1) % Sodium 137 L (140-148) mmol/L Potassium 4.6 (3.6-5.2) mmol/L Chloride 100 (100-108) mmol/L Carbon Dioxide 28 (21-32) mmol/L Anion Gap 13.6 (5.0-14.0) mmol/L BUN 64 H (7-18) mg/dL Creatinine 7.5 H* (0.8-1.3) mg/dL Est Cr Clr Drug Dosing TNP Estimated GFR (MDRD) 7 L (>60) Glucose 141 H (74-106) mg/dL Calcium 9.0 (8.5-10.1) mg/dL Departure - Departure Time of Disposition: 14:01 Disposition: Home, Self-Care 01 Condition: Fair Clinical Impression: Hypotension Qualifiers: Hypotension type: hypotension due to drug Qualified Code(s): I95.2 - Hypotension due to drugs - Discharge Information Referrals: Gilmar Clarke MD [Primary Care Provider] - Forms: ED Department Discharge Additional Instructions: Please coordinate with your paving inspector on peritoneal dialysis, Please followup with your primary care provider in 3-5 days if not better, please call return to the emergency department with worsening of symptoms. - Assessment/Plan Plan: Assessment Acuity = acute Site and laterality = hypotension complicating the patient with known history of end-stage renal disease on peritoneal dialysis Etiology = secondary to accidental blood pressure medication overdose Manifestations = none Location of injury = Home Lab values = hemoglobin 9.6 consistent microchromic anemia creatinine elevated 7.5 consistent chronic renal failure stage GV D Plan He has had some improvement since being sent over from the clinic was able to tolerate a meal and fluids his plan is to go home and do peritenon dialysis run now, and coordinate with his paving inspector I did talk to him about transfer and hospitalization of which she declined at this time Patient was in agreement with the plan all questions were answered, they were instructed to return to the emergency department or call for worsening symptoms. This note was dictated using [employer] voice recognition software please call with any questions.
[2017-07-16 13:43] VITALS: BP 92/68
== END 2017-07-16 14:14 | disposition home or self-care (01) ==
LOC: JP.ED 11:48
DX: I95.2 Hypotension due to drugs (principal); I12.0 Hypertensive chronic kidney disease with stage 5 chronic kidney disease or end stage renal disease; N18.6 End stage renal disease; Z79.82 Long term (current) use of aspirin; Z79.899 Other long term (current) drug therapy; Z91.040 Latex allergy status; Z88.0 Allergy status to penicillin
CPT/HCPCS: 36415; 80048; 85025; 99283; 99284

== ENCOUNTER 2018-02-07 17:26 | Emergency (ER) | payer MEDICARE, BC ==
[2018-02-07 17:46] VITALS: BP 165/101
== END 2018-02-07 18:45 | disposition left against medical advice (07) ==
LOC: JP.ED 17:26
DX: Z53.21 Procedure and treatment not carried out due to patient leaving prior to being seen by health care provider (principal)

== ENCOUNTER 2018-04-09 23:32 | Emergency (ER) | payer MEDICARE, BC ==
--- NOTE | 2018-04-10 01:05 | EDM.PDOC ---
ED HPI GENERAL MEDICAL PROBLEM - General Chief Complaint: ENT Problem Stated Complaint: EAR PAIN Time Seen by Provider: 04/10/18 00:42 Source of Information: Reports: Patient History Limitations: Reports: No Limitations - History of Present Illness INITIAL COMMENTS - FREE TEXT/NARRATIVE: Chronic rt ear pain. Seeing ENT though not recently. Was on course oral antibiotics but was taken off and told to use Auralgan. Now pain back and severe. Can't get in to see ENT for awhile. No fever. Auralgan drops not helping. right ear Pain Score (Numeric/FACES): 10 - Related Data Allergies Allergy/AdvReac Type Severity Reaction Status Date / Time latex Allergy Rash Verified 04/10/18 00:32 Penicillins Allergy Cannot Verified 04/10/18 00:32 Remember Home Meds: Home Meds Allopurinol [Zyloprim] 200 mg PO DAILY 10/09/15 [History] Aspirin [Adult Low Dose Aspirin EC] 81 mg PO DAILY 10/09/15 [History] Furosemide [Lasix] 40 mg PO DAILY 10/09/15 [History] Propranolol [Inderal] 60 mg PO BID 10/09/15 [History] lamoTRIgine 50 mg PO BEDTIME 10/09/15 [History] Neomycin/Polymyxin B Sulf/HC [Txfinjcm-Loxsfudqu-Pk Ear Soln] 10 ml OT QID 05/08 [History] Folic Acid/Vit B Complex and C [Dialyvite] 1 tab PO DAILY 06/28/17 [History] Magnesium Oxide [Magnesium] 400 mg PO BID 06/28/17 [History] lamoTRIgine [Lamotrigine] 25 mg PO QAM 06/28/17 [History] Ciprofloxacin [IMW: Ciprofloxacin HCl] 750 mg PO ASDIRECTED PRN 07/16/17 [ History] Gabapentin [Neurontin] 1 tab PO DAILY 07/16/17 [History] Lisinopril 1 tab PO DAILY 07/16/17 [History] Past Medical History HEENT History: Reports: Impaired Vision, Other (See Below) Other HEENT History: Wears glasses Cardiovascular History: Reports: High Cholesterol, Hypertension Respiratory History: Reports: Asthma, Pneumonia, Recurrent, Sleep Apnea Other Respiratory History: Seasonal asthma Gastrointestinal History: Reports: None Genitourinary History: Reports: Chronic Renal Insuffiency, Dialysis, Peritoneal , Renal Disease, Other (See Below) Other Genitourinary History: renal failure Musculoskeletal History: Reports: Fracture, Gout Neurological History: Reports: Seizure, Other (See Below) Other Neuro History: tremors, idiopathetic progressive neuropathy, mild cognitive impairment Psychiatric History: Reports: Anxiety, Depression Immunologic History: Reports: Other (See Below) Other Immunologic History: on dialysis Dermatologic History: Reports: Psoriasis - Infectious Disease History Infectious Disease History: Reports: Chicken Pox, Measles, Mumps - Past Surgical History HEENT Surgical History: Reports: Other (See Below) Other HEENT Surgeries/Procedures: deviated spetum surgery x2. GI Surgical History: Reports: Colonoscopy Male Surgical History: Reports: Vasectomy Musculoskeletal Surgical History: Reports: Other (See Below) Other Musculoskeletal Surgeries/Procedures:: right ankle Social & Family History - Family History Family Medical History: Noncontributory - Tobacco Use Smoking Status *Q: Never Smoker - Caffeine Use Caffeine Use: Reports: Coffee - Recreational Drug Use Recreational Drug Use: No ED ROS ENT - Review of Systems Review Of Systems: ROS reveals no pertinent complaints other than HPI. ED EXAM, ENT - Physical Exam Exam: See Below Exam Limited By: No Limitations General Appearance: Alert, WD/WN, Mild Distress Ears: Other (RT canal wet but not defiitely red. TM mottled with some redness superiorly. Not bulging. Mastoid non-tender. This all on RT ear.) Mouth/Throat: Normal Inspection, Normal Oropharynx Neck: Normal Inspection Course - Vital Signs Last Recorded V/S: Last Vital Signs Temp 36.5 C 04/10/18 00:28 Pulse 66 04/10/18 00:28 Resp 21 H 04/10/18 00:28 BP 192/117 H 04/10/18 00:28 Pulse Ox 99 04/10/18 00:28 Departure - Departure Time of Disposition: 01:03 Disposition: Home, Self-Care 01 Condition: Fair Clinical Impression: Otitis media - Discharge Information Referrals: Gilmar Clarke MD [Primary Care Provider] - Additional Instructions: There may be some infection in the middle ear and there may also be some infection in the ear canal. Take Cipro 500 mg twice daily for 10 days. Also use the cortisporing drops. For pain use Lynden 5/325 (#20) 1 or 2 every 4 hours as neede for pain. May cauuse sedation or impair driving and can be addicting.
[2018-04-10 01:43] VITALS: BP 191/117
== END 2018-04-10 01:20 | disposition home or self-care (01) ==
LOC: JP.ED 23:32
DX: H66.91 Otitis media, unspecified, right ear (principal); I12.9 Hypertensive chronic kidney disease with stage 1 through stage 4 chronic kidney disease, or unspecified chronic kidney disease; N18.9 Chronic kidney disease, unspecified; Z79.899 Other long term (current) drug therapy; Z79.82 Long term (current) use of aspirin; Z91.040 Latex allergy status; Z88.0 Allergy status to penicillin
CPT/HCPCS: 99283

== ENCOUNTER 2019-02-01 07:27 | Day surgery (SDC) | payer MEDICARE, BC ==
[~2019-02-01 07:27] MED LIST: Propofol 200 MG/20 ML SDV ONE; fentaNYL 100 MCG/2 ML SDV ONE
[2019-02-01] MEDS ORDERED: Lactated Ringers 1,000 ML IV SCH (08:15)
[2019-02-01 09:23] VITALS: BP 156/102
--- NOTE | 2019-02-01 14:44 | OR ---
DATE OF PROCEDURE: 02/01/2019 PREOPERATIVE DIAGNOSIS: History of adenomatous colon polyps. POSTOPERATIVE DIAGNOSES: Diverticulosis. History of adenomatous colon polyps. PROCEDURE: Colonoscopy to the cecum. SURGEON: lEvin Mayers MD ANESTHESIA: IV anesthesia with monitored anesthesia care. INDICATION: This 68-year-old white male is referred for a colonoscopy because of a history of adenomatous colon polyps. His last colonoscopic exam was done 3 years ago. I counseled him for the procedure, including risks and alternatives, and he gave his informed consent to proceed. DESCRIPTION OF PROCEDURE: The patient was placed in the left lateral decubitus position. IV anesthesia was administered by the Anesthesia Service. Time-out was held. A rectal exam was performed, which was unremarkable. The flexible video Olympus colonoscope was introduced through his anus, up his rectum and out his colon, all the way to the cecum. En route, we saw a few scattered left-sided diverticula. There was no bleeding or inflammation associated with any of them. Once the cecum was reached, the scope was slowly withdrawn examining the mucosa throughout. No additional mucosal abnormalities were noted. No neoplastic lesions were seen. The scope was retroflexed in the rectum with the distal rectum appearing unremarkable. The scope was straightened and removed. He tolerated the procedure well. Elvin Mayers MD /[id number]
== END 2019-02-01 09:35 | disposition home or self-care (01) ==
LOC: JP.SDS 07:27
PROVIDERS: ATTEND Surgery
DX: Z12.11 Encounter for screening for malignant neoplasm of colon (principal); K57.30 Diverticulosis of large intestine without perforation or abscess without bleeding; I12.9 Hypertensive chronic kidney disease with stage 1 through stage 4 chronic kidney disease, or unspecified chronic kidney disease; N18.3 Chronic kidney disease, stage 3 (moderate); E78.5 Hyperlipidemia, unspecified; G47.33 Obstructive sleep apnea (adult) (pediatric); J45.909 Unspecified asthma, uncomplicated; Z88.0 Allergy status to penicillin; Z88.8 Allergy status to other drugs, medicaments and biological substances; Z91.040 Latex allergy status; Z99.2 Dependence on renal dialysis; Z86.010 Personal history of colon polyps
CPT/HCPCS: G0105; J2704; J3010; J7120

== ENCOUNTER 2019-12-01 10:31 | Emergency (ER) | payer MEDICARE, BC ==
--- NOTE | 2019-12-01 11:16 | EDM.PDOC ---
ED HPI GENERAL MEDICAL PROBLEM - General Chief Complaint: General Stated Complaint: VOMITNG,WEAKNESS Time Seen by Provider: 12/01/19 11:12 Source of Information: Reports: Patient, Family History Limitations: Reports: No Limitations - History of Present Illness INITIAL COMMENTS - FREE TEXT/NARRATIVE: pt does home dialysis and he has been doing that daily. He has been weaker and more sob for the past several days. He has not had a fever. He has vomited starting yesterday and today. He does not have abdomanal pain. Duration: Day(s): Location: Reports: Generalized Associated Symptoms: Reports: Malaise, Nausea/Vomiting, Weakness - Related Data Allergies Allergy/AdvReac Type Severity Reaction Status Date / Time bupropion [From Wellbutrin] Allergy Other Verified 01/30/19 15:18 latex Allergy Rash Verified 01/30/19 15:18 Penicillins Allergy Cannot Verified 01/30/19 15:18 Remember Home Meds: Home Meds Allopurinol [Zyloprim] 100 mg PO BID 10/09/15 [History] Aspirin [Adult Low Dose Aspirin EC] 81 mg PO DAILY 10/09/15 [History] Furosemide [Lasix] 40 mg PO DAILY 10/09/15 [History] Propranolol [Inderal] 60 mg PO BID 10/09/15 [History] Folic Acid/Vit B Complex and C [Dialyvite] 1 tab PO DAILY 06/28/17 [History] Magnesium Oxide [Magnesium] 400 mg PO BID 06/28/17 [History] Gabapentin [Neurontin] 400 mg PO DAILY 07/16/17 [History] Albuterol Sulfate [Proair Hfa] 2 puff IH Q4H PRN 01/30/19 [History] Escitalopram [Lexapro] 20 mg PO DAILY 01/30/19 [History] Fluticasone Propionate [Flonase] 2 spray NASBOTH BID 01/30/19 [History] Docusate Sodium [Colace] 200 mg PO DAILY 02/01/19 [History] Loratadine [Claritin] 10 mg PO DAILY 02/01/19 [History] calcitrioL [Calcitriol] 0.25 mcg PO .MWF 02/01/19 [History] Past Medical History HEENT History: Reports: Impaired Vision, Other (See Below) Other HEENT History: Wears glasses Cardiovascular History: Reports: High Cholesterol, Hypertension Respiratory History: Reports: Asthma, Pneumonia, Recurrent, Sleep Apnea Other Respiratory History: Seasonal asthma Gastrointestinal History: Reports: None, Colon Polyp Genitourinary History: Reports: Chronic Renal Insuffiency, Dialysis, Peritoneal , Renal Disease, Other (See Below) Other Genitourinary History: renal failure Musculoskeletal History: Reports: Fracture, Gout Neurological History: Reports: Seizure, Other (See Below) Other Neuro History: tremors, idiopathetic progressive neuropathy, mild cognitive impairment Psychiatric History: Reports: Anxiety, Depression Immunologic History: Reports: Other (See Below) Other Immunologic History: on dialysis Dermatologic History: Reports: Psoriasis - Infectious Disease History Infectious Disease History: Reports: Chicken Pox - Past Surgical History HEENT Surgical History: Reports: Other (See Below) Other HEENT Surgeries/Procedures: deviated spetum surgery x2. Cardiovascular Surgical History: Reports: None GI Surgical History: Reports: Colonoscopy Male Surgical History: Reports: Vasectomy Neurological Surgical History: Reports: None Musculoskeletal Surgical History: Reports: Other (See Below) Other Musculoskeletal Surgeries/Procedures:: right ankle Social & Family History - Family History Family Medical History: Noncontributory - Tobacco Use Smoking Status *Q: Never Smoker - Caffeine Use Caffeine Use: Reports: Coffee - Recreational Drug Use Recreational Drug Use: No ED ROS GENERAL - Review of Systems Review Of Systems: See Below Constitutional: Reports: Malaise, Weakness, Other (pt has been ) HEENT: Reports: No Symptoms Respiratory: Reports: Shortness of Breath, Cough Cardiovascular: Reports: No Symptoms Endocrine: Reports: No Symptoms GI/Abdominal: Reports: Nausea, Vomiting : Reports: No Symptoms Musculoskeletal: Reports: No Symptoms Skin: Reports: No Symptoms Neurological: Reports: Other (pt has been very sleepy. ) Psychiatric: Reports: No Symptoms ED EXAM, GENERAL - Physical Exam Exam: See Below Free Text/Narrative:: pt arrived with a cough and sob. he has been vomiting for the last 2 days. He does not have abdomanal pain. Exam Limited By: No Limitations General Appearance: Alert, Anxious, Mild Distress, Other (pt does have good o2 sats. ) Ears: Normal TMs Nose: Normal Inspection Throat/Mouth: Normal Inspection Head: Atraumatic Neck: Normal Inspection Respiratory/Chest: No Respiratory Distress, Crackles Cardiovascular: Regular Rate, Rhythm GI/Abdominal: Soft, Other ( the dialysis cath site looks good. ) (Male) Exam: Deferred Rectal (Males) Exam: Deferred Back Exam: Normal Inspection Extremities: Normal Inspection Neurological: Alert, Oriented, Normal Cognition Course - Vital Signs Last Recorded V/S: Last Vital Signs Temp 36.8 C 12/01/19 10:47 Pulse 67 12/01/19 10:47 Resp 16 12/01/19 10:47 BP 165/103 H 12/01/19 10:47 Pulse Ox 100 12/01/19 10:47 - Orders/Labs/Meds Orders: Active Orders 24 hr Category Date Time Status Sodium Chloride 0.9% [Normal Saline] 1,000 ml Med 12/01/19 11:30 Active IV ASDIRECTED Medication Orders Sodium Chloride (Normal Saline) 1,000 mls @ 500 mls/hr IV ASDIRECTED GLORIA Last Admin: 12/01/19 11:29 Dose: 500 mls/hr Labs: Laboratory Tests 12/01/19 12/01/19 12/01/19 Range/Units 11:03 11:15 11:16 WBC 15.2 H (4.5-11.0) K/uL RBC 3.38 L (4.30-5.90) M/uL Hgb 11.0 L (12.0-15.0) g/dL Hct 34.3 L (40.0-54.0) % MCV 102 H (80-98) fL MCH 33 H (27-31) pg MCHC 32 (32-36) % Plt Count 285 (150-400) K/uL Neut % (Auto) 75 H (36-66) % Lymph % (Auto) 12 L (24-44) % [place] % (Auto) 11 H (2-6) % Eos % (Auto) 1 L (2-4) % Baso % (Auto) 0 (0-1) % Sodium (140-148) mmol/L Potassium (3.6-5.2) mmol/L Chloride (100-108) mmol/L Carbon Dioxide (21-32) mmol/L Anion Gap (5.0-14.0) mmol/L BUN (7-18) mg/dL Creatinine (0.8-1.3) mg/dL Est Cr Clr Drug Dosing mL/min Estimated GFR (MDRD) (>60) Glucose (74-106) mg/dL Calcium (8.5-10.1) mg/dL Iron 35 L (65-175) ug/dL TIBC 199 L (250-450) ug/dl % Saturation 18 L (20-55) % Total Bilirubin (0.2-1.0) mg/dL AST (15-37) U/L ALT (12-78) U/L Alkaline Phosphatase (46-116) U/L NT-Pro-B Natriuret Pep (5-125) pg/mL Total Protein (6.4-8.2) g/dL Albumin (3.4-5.0) g/dL Globulin (2.3-3.5) g/dL Albumin/Globulin Ratio (1.2-2.2) Urine Color Yellow (YELLOW) Urine Appearance Clear (CLEAR) Urine pH 7.5 (5.0-8.0) Ur Specific [place] 1.020 (1.008-1.030) Urine Protein 100 H (NEGATIVE) mg/dL Urine Glucose (UA) Negative (NEGATIVE) mg/dL Urine Ketones Negative (NEGATIVE) mg/dL Urine Occult Blood Small H (NEGATIVE) Urine Nitrite Negative (NEGATIVE) Urine Bilirubin Negative (NEGATIVE) Urine Urobilinogen 0.2 (0.2-1.0) EU/dL Ur Leukocyte Esterase Negative (NEGATIVE) Urine RBC 0-5 (0-5) Urine WBC Not seen (0-5) Ur Epithelial Cells Not seen Amorphous Sediment Not seen Urine Bacteria Not seen Urine Mucus Not seen 12/01/19 12/01/19 Range/Units 11:16 11:16 WBC (4.5-11.0) K/uL RBC (4.30-5.90) M/uL Hgb (12.0-15.0) g/dL Hct (40.0-54.0) % MCV (80-98) fL MCH (27-31) pg MCHC (32-36) % Plt Count (150-400) K/uL Neut % (Auto) (36-66) % Lymph % (Auto) (24-44) % [place] % (Auto) (2-6) % Eos % (Auto) (2-4) % Baso % (Auto) (0-1) % Sodium 135 L (140-148) mmol/L Potassium 4.3 (3.6-5.2) mmol/L Chloride 94 L (100-108) mmol/L Carbon Dioxide 31 (21-32) mmol/L Anion Gap 14.3 H (5.0-14.0) mmol/L BUN 78 H* (7-18) mg/dL Creatinine 7.3 H* (0.8-1.3) mg/dL Est Cr Clr Drug Dosing 9.55 mL/min Estimated GFR (MDRD) 7 L (>60) Glucose 93 (74-106) mg/dL Calcium 9.0 (8.5-10.1) mg/dL Iron (65-175) ug/dL TIBC (250-450) ug/dl % Saturation (20-55) % Total Bilirubin 0.6 (0.2-1.0) mg/dL AST 20 (15-37) U/L ALT 26 (12-78) U/L Alkaline Phosphatase 70 (46-116) U/L NT-Pro-B Natriuret Pep 1785 H (5-125) pg/mL Total Protein 7.1 (6.4-8.2) g/dL Albumin 2.6 L (3.4-5.0) g/dL Globulin 4.5 H (2.3-3.5) g/dL Albumin/Globulin Ratio 0.6 L (1.2-2.2) Urine Color (YELLOW) Urine Appearance (CLEAR) Urine pH (5.0-8.0) Ur Specific [place] (1.008-1.030) Urine Protein (NEGATIVE) mg/dL Urine Glucose (UA) (NEGATIVE) mg/dL Urine Ketones (NEGATIVE) mg/dL Urine Occult Blood (NEGATIVE) Urine Nitrite (NEGATIVE) Urine Bilirubin (NEGATIVE) Urine Urobilinogen (0.2-1.0) EU/dL Ur Leukocyte Esterase (NEGATIVE) Urine RBC (0-5) Urine WBC (0-5) Ur Epithelial Cells Amorphous Sediment Urine Bacteria Urine Mucus Meds: Medications Generic Name Dose Route Start Last Admin Trade Name Freq PRN Reason Stop Dose Admin Sodium Chloride 1,000 mls @ 500 mls/hr 12/01/19 11:30 12/01/19 11:29 Normal Saline IV 500 mls/hr ASDIRECTED GLORIA Administration Discontinued Medications Generic Name Dose Route Start Last Admin Trade Name Freq PRN Reason Stop Dose Admin Furosemide 40 mg 12/01/19 14:09 12/01/19 14:30 Lasix IVPUSH 12/01/19 14:10 40 mg ONETIME ONE Administration Ceftriaxone Sodium 1 gm/ 50 mls @ 100 mls/hr 12/01/19 12:55 12/01/19 13:14 Sodium Chloride IV 12/01/19 13:24 100 mls/hr ONETIME ONE Administration Ondansetron HCl 4 mg 12/01/19 12:55 12/01/19 13:11 Zofran IVPUSH 12/01/19 12:56 4 mg ONETIME ONE Administration - Re-Assessments/Exams Free Text/Narrative Re-Assessment/Exam: 12/01/19 15:06 pt had a mildly elevated wbc. His chest xray shows some possible patchy pneumonia. He has good o2 sats. He was give a liter of fluid. He was given rocephen 1 gm iv. Pt was given zoforan and he is holding fluids down. Departure - Departure Time of Disposition: 15:08 Disposition: Home, Self-Care 01 Condition: Fair Clinical Impression: Bilateral pneumonia, Dehydration, Renal insufficiency, Peritoneal dialysis catheter in place - Discharge Information Referrals: PCP,None [Primary Care Provider] - Forms: ED Department Discharge Care Plan Goals: clear liquid diet, zoforan 4 mg q6h prn for nausea, zithromax 500mg now and 250 daiy for [address] Clarke in 4-5 days. Sepsis Event Note - Evaluation Sepsis Screening Result: No Definite Risk - Focused Exam Vital Signs: Vital Signs Temp Pulse Resp BP Pulse Ox 12/01/19 10:47 36.8 C 67 16 165/103 H 100 12/01/19 10:43 36.8 C 67 16 165/103 H 100 Date Exam was Performed: 12/01/19 Time Exam was Performed: 15:02 - My Orders Last 24 Hours: My Active Orders 12/01/19 11:30 Sodium Chloride 0.9% [Normal Saline] 1,000 ml IV ASDIRECTED - Assessment/Plan Last 24 Hours: My Active Orders 12/01/19 11:30 Sodium Chloride 0.9% [Normal Saline] 1,000 ml IV ASDIRECTED
[2019-12-01] MEDS ORDERED: Sodium Chloride 0.9% 1,000 ML IV SCH (11:30)
[2019-12-01] MEDS ORDERED: Ondansetron 4 MG/2 ML SDV IVPUSH ONE (12:55)
[2019-12-01] MEDS ORDERED: cefTRIAXone 1 GM in Sodium Chloride 0.9% 50 ML IV ONE (12:55)
[2019-12-01] MEDS ORDERED: Furosemide 40 MG/4 ML VIAL IVPUSH ONE (14:09)
--- NOTE | 2019-12-01 14:50 | CR ---
CHEST: 2 view CLINICAL HISTORY:SOB COMPARISON:2017 FINDINGS: Heart size and pulmonary vascularity are normal. There is streaky density in the right middle lobe and lingula. This is felt to represent some subsegmental atelectasis. There are atherosclerotic changes in the aorta. Impression: Streaky bibasal atelectasis No infiltrate or effusion MTDD
[2019-12-01 15:08] VITALS: BP 160/91; PULSE 61
== END 2019-12-01 15:27 | disposition home or self-care (01) ==
LOC: JP.ED 10:31
DX: J18.9 Pneumonia, unspecified organism (principal); E86.0 Dehydration; N28.9 Disorder of kidney and ureter, unspecified; I10 Essential (primary) hypertension; J45.909 Unspecified asthma, uncomplicated; M10.9 Gout, unspecified; F32.9 Major depressive disorder, single episode, unspecified; F41.9 Anxiety disorder, unspecified; Z79.82 Long term (current) use of aspirin; Z79.899 Other long term (current) drug therapy; Z91.040 Latex allergy status; Z88.0 Allergy status to penicillin; Z88.8 Allergy status to other drugs, medicaments and biological substances; Z99.2 Dependence on renal dialysis
CPT/HCPCS: 36415; 71046; 80053; 81001; 83550; 83880; 85025; 96361; 96365; 96375; 99285; J0696; J1940; J2405; J7030; J7050; 99284

== ENCOUNTER 2020-05-29 21:50 | Emergency (ER) | payer MEDICARE, BC, OTHER ==
[2020-05-29] MEDS ORDERED: Sodium Chloride 0.9% 10 ML Syringe FLUSH PRN (22:36)
[2020-05-29] MEDS ORDERED: Sodium Chloride 0.9% 1,000 ML IV ONE (22:37)
[2020-05-29] MEDS ORDERED: Ondansetron 4 MG/2 ML SDV IVPUSH ONE (22:37)
[2020-05-29] MEDS ORDERED: LORazepam 2 MG/ML SDV IVPUSH ONE (22:38)
--- NOTE | 2020-05-29 22:46 | EDM.PDOC ---
<Tegan Sprague - Last Filed: 05/29/20 23:06> ED HPI GENERAL MEDICAL PROBLEM - General Chief Complaint: General Stated Complaint: KINDEY FAILURE,VOMITING Time Seen by Provider: 05/29/20 22:41 Source of Information: Reports: Patient, RN, RN Notes Reviewed, Significant Other History Limitations: Reports: No Limitations - History of Present Illness INITIAL COMMENTS - FREE TEXT/NARRATIVE: Pt here with spouse c/o weakness, n/v, chills, low grade fever, weakness, diarrhea, cough, and no appetite. Pt affect tearful and admits to depression and anxiety. Pt did not take prescribed medications today per . Can not keep anything down including jello. Pt has continued with daily peritoneal dialysis. Was tested for COVID and was negative but advised to self quarantine until May. Onset Date: 05/28/20 Duration: Getting Worse Location: Reports: Generalized - Related Data Allergies Allergy/AdvReac Type Severity Reaction Status Date / Time bupropion [From Wellbutrin] Allergy Other Verified 05/29/20 22:08 latex Allergy Rash Verified 05/29/20 22:08 Penicillins Allergy Cannot Verified 05/29/20 22:08 Remember Home Meds: Home Meds Allopurinol [Zyloprim] 100 mg PO BID 10/09/15 [History] Aspirin [Adult Low Dose Aspirin EC] 81 mg PO DAILY 10/09/15 [History] Furosemide [Lasix] 40 mg PO DAILY 10/09/15 [History] Propranolol [Inderal] 60 mg PO BID 10/09/15 [History] Folic Acid/Vit B Complex and C [Dialyvite] 1 tab PO DAILY 06/28/17 [History] Magnesium Oxide [Magnesium] 400 mg PO BID 06/28/17 [History] Gabapentin [Neurontin] 400 mg PO DAILY 07/16/17 [History] Albuterol Sulfate [Proair Hfa] 2 puff IH Q4H PRN 01/30/19 [History] Escitalopram [Lexapro] 20 mg PO DAILY 01/30/19 [History] Fluticasone Propionate [Flonase] 2 spray NASBOTH BID 01/30/19 [History] Docusate Sodium [Colace] 200 mg PO DAILY 02/01/19 [History] Loratadine [Claritin] 10 mg PO DAILY 02/01/19 [History] calcitrioL [Calcitriol] 0.25 mcg PO .MWF 02/01/19 [History] Past Medical History HEENT History: Reports: Impaired Vision, Other (See Below) Other HEENT History: Wears glasses Cardiovascular History: Reports: High Cholesterol, Hypertension Respiratory History: Reports: Asthma, Pneumonia, Recurrent, Sleep Apnea Other Respiratory History: Seasonal asthma Gastrointestinal History: Reports: None, Colon Polyp Genitourinary History: Reports: Chronic Renal Insuffiency, Dialysis, Peritoneal, Renal Disease, Other (See Below) Other Genitourinary History: renal failure Musculoskeletal History: Reports: Fracture, Gout Neurological History: Reports: Seizure, Other (See Below) Other Neuro History: tremors, idiopathetic progressive neuropathy, mild cognitive impairment Psychiatric History: Reports: Anxiety, Depression Immunologic History: Reports: Other (See Below) Other Immunologic History: on dialysis Dermatologic History: Reports: Psoriasis - Infectious Disease History Infectious Disease History: Reports: Chicken Pox - Past Surgical History HEENT Surgical History: Reports: Other (See Below) Other HEENT Surgeries/Procedures: deviated spetum surgery x2. Cardiovascular Surgical History: Reports: None GI Surgical History: Reports: Colonoscopy Male Surgical History: Reports: Vasectomy Neurological Surgical History: Reports: None Musculoskeletal Surgical History: Reports: Other (See Below) Other Musculoskeletal Surgeries/Procedures:: right ankle Social & Family History - Family History Family Medical History: Noncontributory - Tobacco Use Smoking Status *Q: Never Smoker - Caffeine Use Caffeine Use: Reports: Coffee ED ROS GENERAL - Review of Systems Review Of Systems: See Below Constitutional: Reports: Fever, Chills, Malaise, Weakness, Fatigue, Diaphoresis, Decreased Appetite, Weight Loss HEENT: Reports: Throat Pain Respiratory: Reports: Cough Cardiovascular: Reports: No Symptoms Endocrine: Reports: Fatigue GI/Abdominal: Reports: Diarrhea, Decreased Appetite, Nausea, Vomiting : Reports: No Symptoms Musculoskeletal: 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) Skin: Reports: Pallor Neurological: Reports: Weakness Psychiatric: Reports: Anxiety, Depression Hematologic/Lymphatic: Reports: No Symptoms Immunologic: Reports: Environmental Allergy ED EXAM, GENERAL - Physical Exam Exam: See Below Exam Limited By: No Limitations General Appearance: Alert, Anxious, Moderate Distress Eye Exam: Bilateral Eye: PERRL Throat/Mouth: Other (Sore throat ) Head: Normocephalic Neck: Normal Inspection Respiratory/Chest: Rhonchi Cardiovascular: Normal Peripheral Pulses, Regular Rate, Rhythm, No Murmur, No Rub Peripheral Pulses: 1+: Dorsalis Pedis (L), Dorsalis Pedis (R), 2+: Radial (L), Radial (R) GI/Abdominal: Soft, Tender (Male) Exam: Deferred Rectal (Males) Exam: Deferred Neurological: Alert, Oriented, CN II-XII Intact, Normal Cognition, Slow to Respond Psychiatric: Anxious, Depressed Mood Skin Exam: Dry Departure - Departure Disposition: DC/Tfer to Other 70 Clinical Impression: Sepsis syndrome, Bronchitis Renal failure Qualifiers: Renal failure chronicity: chronic Chronic kidney disease stage: on chronic dialysis Qualified Code(s): N18.6 - End stage renal disease - Discharge Information Referrals: Gilmar Clarke MD [Primary Care Provider] - Forms: ED Department Discharge Care Plan Goals: Patient will be transferred by ground to [facility] for dialysis and further evaluation of source of infection causing likely sepsis syndrome. Sepsis Event Note (ED) - Evaluation Sepsis Screening Result: No Definite Risk <Maximilian Patel - Last Filed: 05/30/20 05:47> Course - Vital Signs Last Recorded V/S: Last Vital Signs Temp 99.7 F 05/30/20 00:55 Pulse 81 05/30/20 00:55 Resp 18 05/30/20 00:55 BP 151/88 H 05/30/20 00:55 Pulse Ox 94 L 05/30/20 00:55 - Orders/Labs/Meds Orders: Active Orders 24 hr Category Date Time Status Chest 1V Frontal [CR] Stat Exams 05/29/20 22:38 Taken CULTURE BLOOD [BC] Urgent Lab 05/29/20 23:40 Received CULTURE BLOOD [BC] Urgent Lab 05/29/20 23:50 Received CULTURE STREP A CONFIRMATION [RM] Stat Lab 05/29/20 23:11 Results STREP SCRN A RAPID W CULT CONF [RM] Stat Lab 05/29/20 23:11 Results Blood Culture x2 Reflex Set [OM.PC] Urgent Oth 05/29/20 23:27 Ordered Peripheral IV Insertion Adult [OM.PC] Routine Oth 05/29/20 22:36 Ordered Labs: Laboratory Tests 05/29/20 05/29/20 05/29/20 Range/Units 22:42 22:50 22:50 WBC 31.8 H* (4.5-11.0) K/uL RBC 3.13 L (4.30-5.90) M/uL Hgb 10.2 L (12.0-15.0) g/dL Hct 31.6 L (40.0-54.0) % MCV 101 H (80-98) fL MCH 33 H (27-31) pg MCHC 32 (32-36) % Plt Count 349 (150-400) K/uL Neut % (Auto) 93 H (36-66) % Lymph % (Auto) 2 L (24-44) % [place] % (Auto) 4 (2-6) % Eos % (Auto) 0 L (2-4) % Baso % (Auto) 0 (0-1) % Sodium 130 L (140-148) mmol/L Potassium 4.3 (3.6-5.2) mmol/L Chloride 92 L (100-108) mmol/L Carbon Dioxide 25 (21-32) mmol/L Anion Gap 17.3 H (5.0-14.0) mmol/L BUN 75 H (7-18) mg/dL Creatinine 7.9 H* (0.8-1.3) mg/dL Est Cr Clr Drug Dosing 8.83 mL/min Estimated GFR (MDRD) 7 L (>60) Glucose 134 H (74-106) mg/dL Lactic Acid (0.4-2.0) mmol/L Calcium 9.3 (8.5-10.1) mg/dL Magnesium (1.8-2.4) mg/dL Total Bilirubin 0.7 (0.2-1.0) mg/dL AST 20 (15-37) U/L ALT 21 (12-78) U/L Alkaline Phosphatase 66 (46-116) U/L Total Protein 7.6 (6.4-8.2) g/dL Albumin 2.9 L (3.4-5.0) g/dL Globulin 4.7 H (2.3-3.5) g/dL Albumin/Globulin Ratio 0.6 L (1.2-2.2) Urine Color Yellow (YELLOW) Urine Appearance Clear (CLEAR) Urine pH 7.0 (5.0-8.0) Ur Specific [place] 1.020 (1.008-1.030) Urine Protein 100 H (NEGATIVE) mg/dL Urine Glucose (UA) Negative (NEGATIVE) mg/dL Urine Ketones Negative (NEGATIVE) mg/dL Urine Occult Blood Trace-intact H (NEGATIVE) Urine Nitrite Negative (NEGATIVE) Urine Bilirubin Negative (NEGATIVE) Urine Urobilinogen 0.2 (0.2-1.0) EU/dL Ur Leukocyte Esterase Negative (NEGATIVE) Urine RBC 5-10 H (0-5) Urine WBC 0-5 (0-5) Ur Epithelial Cells Rare Amorphous Sediment Not seen Urine Bacteria Not seen Urine Mucus Not seen SARS-CoV-2 RNA (ASHER) (NEGATIVE) 05/29/20 05/29/20 05/29/20 Range/Units 22:50 22:50 23:25 WBC (4.5-11.0) K/uL RBC (4.30-5.90) M/uL Hgb (12.0-15.0) g/dL Hct (40.0-54.0) % MCV (80-98) fL MCH (27-31) pg MCHC (32-36) % Plt Count (150-400) K/uL Neut % (Auto) (36-66) % Lymph % (Auto) (24-44) % [place] % (Auto) (2-6) % Eos % (Auto) (2-4) % Baso % (Auto) (0-1) % Sodium (140-148) mmol/L Potassium (3.6-5.2) mmol/L Chloride (100-108) mmol/L Carbon Dioxide (21-32) mmol/L Anion Gap (5.0-14.0) mmol/L BUN (7-18) mg/dL Creatinine (0.8-1.3) mg/dL Est Cr Clr Drug Dosing mL/min Estimated GFR (MDRD) (>60) Glucose (74-106) mg/dL Lactic Acid 2.2 H (0.4-2.0) mmol/L Calcium (8.5-10.1) mg/dL Magnesium 2.0 (1.8-2.4) mg/dL Total Bilirubin (0.2-1.0) mg/dL AST (15-37) U/L ALT (12-78) U/L Alkaline Phosphatase (46-116) U/L Total Protein (6.4-8.2) g/dL Albumin (3.4-5.0) g/dL Globulin (2.3-3.5) g/dL Albumin/Globulin Ratio (1.2-2.2) Urine Color (YELLOW) Urine Appearance (CLEAR) Urine pH (5.0-8.0) Ur Specific [place] (1.008-1.030) Urine Protein (NEGATIVE) mg/dL Urine Glucose (UA) (NEGATIVE) mg/dL Urine Ketones (NEGATIVE) mg/dL Urine Occult Blood (NEGATIVE) Urine Nitrite (NEGATIVE) Urine Bilirubin (NEGATIVE) Urine Urobilinogen (0.2-1.0) EU/dL Ur Leukocyte Esterase (NEGATIVE) Urine RBC (0-5) Urine WBC (0-5) Ur Epithelial Cells Amorphous Sediment Urine Bacteria Urine Mucus SARS-CoV-2 RNA (ASHER) Negative (NEGATIVE) Meds: Medications Discontinued Medications Generic Name Dose Route Start Last Admin Trade Name Freq PRN Reason Stop Dose Admin Sodium Chloride 1,000 mls @ 500 mls/hr 05/29/20 22:37 05/29/20 23:09 Normal Saline IV 05/30/20 00:36 500 mls/hr .BOLUS ONE Administration Meropenem 1 gm/ Sodium 100 mls @ 200 mls/hr 05/29/20 23:39 05/29/20 23:54 Chloride IV 05/30/20 00:08 200 mls/hr ONETIME ONE Administration Lorazepam 0.5 mg 05/29/20 22:38 05/29/20 23:06 Ativan IVPUSH 05/29/20 22:39 0.5 mg ONETIME ONE Administration Ondansetron HCl 4 mg 05/29/20 22:37 05/29/20 23:06 Zofran IVPUSH 05/29/20 22:38 4 mg ONETIME ONE Administration Sodium Chloride 10 ml 05/29/20 22:36 05/29/20 23:31 Saline Flush FLUSH 10 ml ASDIRECTED PRN Administration Keep Vein Open - Re-Assessments/Exams Free Text/Narrative Re-Assessment/Exam: 05/29/20 23:59 White count is 31,000, creatinine 7.9. Patient remained chilled with a low- grade fever, 2 blood cultures were drawn and 1 g of meropenem ordered. Two-view chest x-ray is basically clear, possible subtle small infiltrate above the right diaphragm but not significant. Concerns for peritonitis. Dr. Andrea Andraed, ER physician at [facility] kindly accepted the patient for transfer. 05/30/20 00:23 COVID returned negative. Departure - Departure Time of Disposition: 01:04 Sepsis Event Note (ED) - Focused Exam Vital Signs: Vital Signs Temp Pulse Resp BP Pulse Ox 05/30/20 00:55 99.7 F 81 18 151/88 H 94 L 05/30/20 00:15 82 18 148/83 H 92 L 05/29/20 22:05 99.3 F 82 16 172/93 H 97 05/29/20 22:01 99.3 F 82 16 172/93 H 97 - My Orders Last 24 Hours: My Active Orders 05/29/20 23:27 Blood Culture x2 Reflex Set [OM.PC] Urgent 05/29/20 23:40 CULTURE BLOOD [BC] Urgent 05/29/20 23:50 CULTURE BLOOD [BC] Urgent - Assessment/Plan Last 24 Hours: My Active Orders 05/29/20 23:27 Blood Culture x2 Reflex Set [OM.PC] Urgent 05/29/20 23:40 CULTURE BLOOD [BC] Urgent 05/29/20 23:50 CULTURE BLOOD [BC] Urgent
[2020-05-29] MEDS ORDERED: Meropenem 1 GM in Sodium Chloride 0.9% 100 ML IV ONE (23:39)
[2020-05-30 00:56] VITALS: BP 151/88; PULSE 81
--- NOTE | 2020-05-30 09:05 | CR ---
CHEST: Portable 05/29/2020 at 10:59 PM CLINICAL HISTORY:Cough COMPARISON:November 2019 FINDINGS: There is some patchy airspace disease at the right lung base. There is some elevation of the right hemidiaphragm. Heart size and pulmonary vascularity are normal. There are atherosclerotic changes in the aorta. IMPRESSION: Elevation of the right hemidiaphragm is increased slightly since prior study. There is patchy airspace disease in the right lung base which may represent atelectasis or infiltrate.
== END 2020-05-30 01:04 | disposition other institution (70) ==
LOC: JP.ED 21:50
DX: A41.9 Sepsis, unspecified organism (principal); R65.20 Severe sepsis without septic shock; I12.0 Hypertensive chronic kidney disease with stage 5 chronic kidney disease or end stage renal disease; N18.6 End stage renal disease; J40 Bronchitis, not specified as acute or chronic; Z99.2 Dependence on renal dialysis; M10.9 Gout, unspecified; F41.9 Anxiety disorder, unspecified; F32.9 Major depressive disorder, single episode, unspecified; Z91.040 Latex allergy status; Z88.0 Allergy status to penicillin; Z88.8 Allergy status to other drugs, medicaments and biological substances; Z79.82 Long term (current) use of aspirin; Z79.899 Other long term (current) drug therapy; Z20.828 Contact with and (suspected) exposure to other viral communicable diseases
CPT/HCPCS: 36415; 71045; 80053; 81001; 83605; 83735; 85025; 87040; 87081; 87880; 96361; 96365; 96375; 99285; J2060; J2185; J2405; J7040; J7050; U0002

== ENCOUNTER 2020-07-27 17:29 | Emergency (ER) | payer MEDICARE, BC ==
[2020-07-27] MEDS ORDERED: Sodium Chloride 0.9% 10 ML Syringe FLUSH PRN (18:43)
[2020-07-27 19:06] VITALS: BP 155/83; PULSE 84
--- NOTE | 2020-07-27 20:02 | CRLCR ---
INDICATION: Fever. TECHNIQUE: Chest 1 view Comparison: 05/29/2020. Findings: Cardiac silhouette size is within normal limits. Aorta is tortuous, similar to prior. Mild linear right basilar opacities, which appear more pronounced compared to prior which could be due to differences in positioning. No pleural effusion or pneumothorax. Degenerative changes again noted in the spine. Impression: Mild linear/interstitial bibasilar lung opacities could be due to infection or subsegmental atelectasis. These are more pronounced compared to prior exam, which in part could be due to differences in patient positioning Dictated by Gilmar Han MD @ Jul 27 2020 7:57PM Signed by Dr. Gilmar Han @ Jul 27 2020 8:01PM
--- NOTE | 2020-07-27 20:03 | EDM.PDOC ---
ED HPI GENERAL MEDICAL PROBLEM - General Chief Complaint: General Stated Complaint: WEAKNESS,KIDNEY FAILURE Time Seen by Provider: 07/27/20 18:03 - History of Present Illness INITIAL COMMENTS - FREE TEXT/NARRATIVE: Patient presents from home due to increasing fatigue/weakness, concern about fever/chills (home temp-97.9 this am), vomiting x 2 episodes. he reports he had coughing episode once then vomited, + nausea, last urine output 2 days ago, decrease water intake. states he normally produces urine 3-4 x day. he does home peritoneal dialysis, completed entire treatment last night as scheduled, no daytime dwell per his report. he states he feels the same as several weeks ago when admitted to [facility] for concern about peritonitis. states she is the only one out in public--she wears mask and attempts to minimize as much as possible/he only goes out for medical appts as needed. they did see daughter this past week, went to her house (outside only), brief visit all wearing masks. PMH--ESRD-peritoneal dialysis x 5+years, asthma, allergies/hayfever, HTN Meds--reviewed in EMR Allergies--PCN, latex per his report; EMR reviewed Tob--never EtOH-rare, one drink/mos at most Drugs--denies Onset: Gradual Onset Date: 07/25/20 Duration: Getting Worse Associated Symptoms: Reports: Cough, Fever/Chills, Nausea/Vomiting, Weakness. Denies: Confusion, Chest Pain, Loss of Appetite, Shortness of Breath, Syncope - Related Data Allergies Allergy/AdvReac Type Severity Reaction Status Date / Time bupropion [From Wellbutrin] Allergy Other Verified 07/27/20 17:45 latex Allergy Rash Verified 07/27/20 17:45 Penicillins Allergy Cannot Verified 07/27/20 17:45 Remember Home Meds: Home Meds Allopurinol [Zyloprim] 100 mg PO BID 10/09/15 [History] Aspirin [Adult Low Dose Aspirin EC] 81 mg PO DAILY 10/09/15 [History] Furosemide [Lasix] 40 mg PO DAILY 10/09/15 [History] Propranolol [Inderal] 60 mg PO BID 10/09/15 [History] Folic Acid/Vit B Complex and C [Dialyvite] 1 tab PO DAILY 06/28/17 [History] Gabapentin [Neurontin] 400 mg PO DAILY 07/16/17 [History] Albuterol Sulfate [Proair Hfa] 2 puff IH Q4H PRN 01/30/19 [History] Escitalopram [Lexapro] 20 mg PO DAILY 01/30/19 [History] Fluticasone Propionate [Flonase] 2 spray NASBOTH BID 01/30/19 [History] Docusate Sodium [Colace] 200 mg PO DAILY 02/01/19 [History] Loratadine [Claritin] 10 mg PO DAILY 02/01/19 [History] calcitrioL [Calcitriol] 0.25 mcg PO .MWF 02/01/19 [History] Past Medical History HEENT History: Reports: Impaired Vision, Other (See Below) Other HEENT History: Wears glasses Cardiovascular History: Reports: High Cholesterol, Hypertension Respiratory History: Reports: Asthma, Pneumonia, Recurrent, Sleep Apnea Other Respiratory History: Seasonal asthma Gastrointestinal History: Reports: None, Colon Polyp Genitourinary History: Reports: Chronic Renal Insuffiency, Dialysis, Peritoneal, Renal Disease, Other (See Below) Other Genitourinary History: renal failure Musculoskeletal History: Reports: Fracture, Gout Neurological History: Reports: Seizure, Other (See Below) Other Neuro History: tremors, idiopathetic progressive neuropathy, mild cognitive impairment Psychiatric History: Reports: Anxiety, Depression Immunologic History: Reports: Other (See Below) Other Immunologic History: on dialysis Dermatologic History: Reports: Psoriasis - Infectious Disease History Infectious Disease History: Reports: Chicken Pox - Past Surgical History HEENT Surgical History: Reports: Other (See Below) Other HEENT Surgeries/Procedures: deviated spetum surgery x2. Cardiovascular Surgical History: Reports: None GI Surgical History: Reports: Colonoscopy Other GI Surgeries/Procedures: peritoneal dialysis catheter Male Surgical History: Reports: Vasectomy Neurological Surgical History: Reports: None Musculoskeletal Surgical History: Reports: Other (See Below) Other Musculoskeletal Surgeries/Procedures:: right ankle Social & Family History - Family History Family Medical History: No Pertinent Family History - Tobacco Use Tobacco Use Status *Q: Never Tobacco User - Caffeine Use Caffeine Use: Reports: Coffee ED ROS GENERAL - Review of Systems Review Of Systems: Comprehensive ROS is negative, except as noted in HPI. Constitutional: Reports: Fever, Chills, Malaise, Weakness, Fatigue HEENT: Reports: No Symptoms Respiratory: Reports: Cough. Denies: Shortness of Breath, Wheezing Cardiovascular: Denies: No Symptoms, Edema, Palpitations Endocrine: Reports: Fatigue GI/Abdominal: Reports: Nausea, Vomiting. Denies: Abdominal Pain : Reports: Other (normal output 4x day, nothing x 2 days per his report) Musculoskeletal: Reports: No Symptoms Skin: Reports: No Symptoms Neurological: Reports: No Symptoms Psychiatric: Reports: No Symptoms Hematologic/Lymphatic: Reports: No Symptoms Immunologic: Reports: No Symptoms ED EXAM, GENERAL - Physical Exam Exam: See Below Exam Limited By: No Limitations General Appearance: Alert, WD/WN, No Apparent Distress Ears: Normal External Exam, Hearing Grossly Normal Nose: Normal Inspection Throat/Mouth: Normal Inspection, Normal Lips, Normal Oropharynx, No Airway Compromise Head: Atraumatic, Normocephalic Neck: Normal Inspection, Supple, Non-Tender, Full Range of Motion. No: Lymphadenopathy (R), Lymphadenopathy (L) Respiratory/Chest: No Respiratory Distress, Lungs Clear, Normal Breath Sounds, No Accessory Muscle Use, Chest Non-Tender Cardiovascular: Normal Peripheral Pulses, Regular Rate, Rhythm, No Edema, No Murmur GI/Abdominal: Normal Bowel Sounds, Soft, Non-Tender, No Distention, Other (has noted peritoneal catheter from mid abdomen, intact/no erythema or drainage noted) Back Exam: Normal Inspection, Full Range of Motion Extremities: Normal Inspection, Normal Range of Motion, Non-Tender, No Pedal Edema, Normal Capillary Refill Neurological: Alert, Oriented, CN II-XII Intact Psychiatric: Normal Affect, Normal Mood Skin Exam: Warm, Dry, Intact, Normal Color, No Rash Lymphatic: No Adenopathy Course - Vital Signs Text/Narrative:: 1954--call placed to [facility] for transfer due to concern about peritonitis in peritoneal dialysis patient; case was d/w Dr Nobles, ER for transfer who accepts at this time. patient and spouse updated on plan of care/agree. code status was reviewed, patient and spouse state no code-DNR/DNI Last Recorded V/S: Last Vital Signs Temp 99.8 F 07/27/20 17:57 Pulse 84 07/27/20 19:05 Resp 16 07/27/20 17:57 BP 155/83 H 07/27/20 19:05 Pulse Ox 93 L 07/27/20 17:57 - Orders/Labs/Meds Orders: Active Orders 24 hr Category Date Time Status Cardiac Monitoring [RC] CONTINUOUS Care 07/27/20 18:44 Active Oxygen Therapy, ED [RC] STAT Care 07/27/20 18:44 Active Pulse Oximetry [RC] ROUTINE Care 07/27/20 18:44 Active CULTURE BLOOD [BC] Urgent Lab 07/27/20 18:45 Received CULTURE BLOOD [BC] Urgent Lab 07/27/20 18:50 Received Sodium Chloride 0.9% [Saline Flush] Med 07/27/20 18:43 Active 10 ml FLUSH ASDIRECTED PRN Vancomycin 1 gm Med 07/27/20 19:47 Active Sodium Chloride 0.9% [Normal Saline] 250 ml IV ONETIME Blood Culture x2 Reflex Set [OM.PC] Urgent Oth 07/27/20 18:43 Ordered Saline Lock Insert [OM.PC] Stat Oth 07/27/20 18:43 Ordered Medication Orders Vancomycin HCl 1 gm/ Sodium (Chloride) 250 mls @ 150 mls/hr IV ONETIME ONE Stop: 07/27/20 21:26 Sodium Chloride (Saline Flush) 10 ml FLUSH ASDIRECTED PRN PRN Reason: Keep Vein Open Labs: Laboratory Tests 07/27/20 07/27/20 07/27/20 Range/Units 18:43 19:04 19:17 WBC 25.5 H (4.5-11.0) K/uL RBC 3.30 L (4.30-5.90) M/uL Hgb 10.9 L (12.0-15.0) g/dL Hct 33.0 L (40.0-54.0) % MCV 100 H (80-98) fL MCH 33 H (27-31) pg MCHC 33 (32-36) % Plt Count 340 (150-400) K/uL Neut % (Auto) 89 H (36-66) % Lymph % (Auto) 3 L (24-44) % Meeker % (Auto) 7 H (2-6) % Eos % (Auto) 0 L (2-4) % Baso % (Auto) 0 (0-1) % Sodium 133 L (140-148) mmol/L Potassium 4.3 (3.6-5.2) mmol/L Chloride 94 L (100-108) mmol/L Carbon Dioxide 26 (21-32) mmol/L Anion Gap 17.3 H (5.0-14.0) mmol/L BUN 57 H (7-18) mg/dL Creatinine 8.1 H* (0.8-1.3) mg/dL Est Cr Clr Drug Dosing 8.61 mL/min Estimated GFR (MDRD) 7 L (>60) Glucose 119 H (74-106) mg/dL Lactic Acid 2.6 H (0.4-2.0) mmol/L Calcium 9.2 (8.5-10.1) mg/dL Total Bilirubin 0.7 (0.2-1.0) mg/dL AST 21 (15-37) U/L ALT 26 (12-78) U/L Alkaline Phosphatase 80 (46-116) U/L C-Reactive Protein 1.94 H (0.0-0.3) mg/dL Total Protein 7.4 (6.4-8.2) g/dL Albumin 2.9 L (3.4-5.0) g/dL Globulin 4.5 H (2.3-3.5) g/dL Albumin/Globulin Ratio 0.6 L (1.2-2.2) Meds: Medications Generic Name Dose Route Start Last Admin Trade Name Freq PRN Reason Stop Dose Admin Vancomycin HCl 1 gm/ Sodium 250 mls @ 150 mls/hr 07/27/20 19:47 Chloride IV 07/27/20 21:26 ONETIME ONE Sodium Chloride 10 ml 07/27/20 18:43 Saline Flush FLUSH ASDIRECTED PRN Keep Vein Open Discontinued Medications Generic Name Dose Route Start Last Admin Trade Name Freq PRN Reason Stop Dose Admin Cefepime HCl 0.5 gm/ Sodium 50 mls @ 100 mls/hr 07/27/20 19:48 Chloride IV 07/27/20 20:17 ONETIME ONE - Radiology Interpretation Free Text/Narrative:: 1950--preliminary chest film no acute process, final radiology reading pending Departure - Departure Time of Disposition: 20:16 Disposition: DC/Tfer to Acute Hospital 02 Condition: Good Clinical Impression: Peritonitis due to infected peritoneal dialysis catheter, ESRD on peritoneal dialysis, Anemia in CKD (chronic kidney disease), Hyponatremia - Discharge Information Referrals: Gilmar Clarke MD [Primary Care Provider] - Forms: ED Department Discharge Sepsis Event Note (ED) - Evaluation Sepsis Screening Result: No Definite Risk - Focused Exam Vital Signs: Vital Signs Temp Pulse Resp BP Pulse Ox 07/27/20 19:05 84 155/83 H 07/27/20 18:37 82 147/86 H 07/27/20 17:57 99.8 F 85 16 175/97 H 93 L 07/27/20 17:43 99.8 F 85 16 175/97 H 93 L - My Orders Last 24 Hours: My Active Orders 07/27/20 18:43 Sodium Chloride 0.9% [Saline Flush] 10 ml FLUSH ASDIRECTED PRN Blood Culture x2 Reflex Set [OM.PC] Urgent Saline Lock Insert [OM.PC] Stat 07/27/20 18:44 Cardiac Monitoring [RC] CONTINUOUS Oxygen Therapy, ED [RC] STAT Pulse Oximetry [RC] ROUTINE 07/27/20 18:45 CULTURE BLOOD [BC] Urgent 07/27/20 18:50 CULTURE BLOOD [BC] Urgent 07/27/20 19:47 Vancomycin 1 gm Sodium Chloride 0.9% [Normal Saline] 250 ml IV ONETIME - Assessment/Plan Last 24 Hours: My Active Orders 07/27/20 18:43 Sodium Chloride 0.9% [Saline Flush] 10 ml FLUSH ASDIRECTED PRN Blood Culture x2 Reflex Set [OM.PC] Urgent Saline Lock Insert [OM.PC] Stat 07/27/20 18:44 Cardiac Monitoring [RC] CONTINUOUS Oxygen Therapy, ED [RC] STAT Pulse Oximetry [RC] ROUTINE 07/27/20 18:45 CULTURE BLOOD [BC] Urgent 07/27/20 18:50 CULTURE BLOOD [BC] Urgent 07/27/20 19:47 Vancomycin 1 gm Sodium Chloride 0.9% [Normal Saline] 250 ml IV ONETIME
[2020-07-27] MEDS ORDERED: Cefepime 1 GM Vial ONE (20:57)
[2020-07-27] MEDS ORDERED: Sodium Chloride 0.9% 100 ML ONE (20:57)
[2020-07-27] MEDS ORDERED: Acetaminophen 325 MG Tab PO ONE (21:04)
== END 2020-07-27 21:22 ==
LOC: JP.ED 17:29
DX: T85.71XA Infection and inflammatory reaction due to peritoneal dialysis catheter, initial encounter (principal); K65.9 Peritonitis, unspecified; I12.0 Hypertensive chronic kidney disease with stage 5 chronic kidney disease or end stage renal disease; N18.6 End stage renal disease; D63.1 Anemia in chronic kidney disease; E87.1 Hypo-osmolality and hyponatremia; Z79.82 Long term (current) use of aspirin; Z79.899 Other long term (current) drug therapy; J45.909 Unspecified asthma, uncomplicated; M10.9 Gout, unspecified; Z88.8 Allergy status to other drugs, medicaments and biological substances; Z91.040 Latex allergy status; Z88.0 Allergy status to penicillin
CPT/HCPCS: 36415; 71045; 80053; 83605; 85025; 86140; 87040; 96365; 96375; 99285; A9270; J0692; J3370; J7050

== ENCOUNTER 2020-09-23 17:59 | Emergency (ER) | payer MEDICARE, BC ==
[2020-09-23 18:08] VITALS: BP 187/82; PULSE 100
[2020-09-23] MEDS ORDERED: Sodium Chloride 0.9% 1,000 ML IV SCH (18:15)
--- NOTE | 2020-09-23 18:15 | EDM.PDOC ---
ED HPI GENERAL MEDICAL PROBLEM - General Chief Complaint: Neurological Problem Stated Complaint: MEDICAL [facility] Time Seen by Provider: 09/23/20 18:09 Source of Information: Reports: EMS, RN Notes Reviewed History Limitations: Reports: Altered Mental Status - History of Present Illness INITIAL COMMENTS - FREE TEXT/NARRATIVE: 69-year-old gentleman presents emergency department today via EMS services he has a known seizure disorder as well as known peritoneal dialysis was found at home to be tremulous, EMS was called EMS does confirm he had seizure-like activity at the time they arrived however it was very brief and no medications were provided he appears to develop any post ictal state at this time he will respond to pain with opening his eyes GCS of 4 - Related Data Allergies Allergy/AdvReac Type Severity Reaction Status Date / Time bupropion [From Wellbutrin] Allergy Other Verified 09/23/20 21:35 latex Allergy Rash Verified 09/23/20 21:35 Penicillins Allergy Cannot Verified 09/23/20 21:35 Remember Home Meds: Home Meds Allopurinol [Zyloprim] 100 mg PO BID 10/09/15 [History] Aspirin [Adult Low Dose Aspirin EC] 81 mg PO DAILY 10/09/15 [History] Furosemide [Lasix] 40 mg PO DAILY 10/09/15 [History] Propranolol [Inderal] 60 mg PO BID 10/09/15 [History] Folic Acid/Vit B Complex and C [Dialyvite] 1 tab PO DAILY 06/28/17 [History] Gabapentin [Neurontin] 400 mg PO DAILY 07/16/17 [History] Albuterol Sulfate [Proair Hfa] 2 puff IH Q4H PRN 01/30/19 [History] Escitalopram [Lexapro] 20 mg PO DAILY 01/30/19 [History] Fluticasone Propionate [Flonase] 2 spray NASBOTH BID 01/30/19 [History] Docusate Sodium [Colace] 200 mg PO DAILY 02/01/19 [History] Loratadine [Claritin] 10 mg PO DAILY 02/01/19 [History] calcitrioL [Calcitriol] 0.25 mcg PO .MWF 02/01/19 [History] FLUoxetine [PROzac] 60 mg PO DAILY 09/23/20 [History] Past Medical History HEENT History: Reports: Impaired Vision, Other (See Below) Other HEENT History: Wears glasses Cardiovascular History: Reports: High Cholesterol, Hypertension Respiratory History: Reports: Asthma, Pneumonia, Recurrent, Sleep Apnea Other Respiratory History: Seasonal asthma Gastrointestinal History: Reports: Colon Polyp Genitourinary History: Reports: Chronic Renal Insuffiency, Dialysis, Peritoneal, Renal Disease, Other (See Below) Other Genitourinary History: renal failure Musculoskeletal History: Reports: Fracture, Gout Neurological History: Reports: Seizure, Other (See Below) Other Neuro History: tremors, idiopathetic progressive neuropathy, mild cognitive impairment Psychiatric History: Reports: Anxiety, Depression Immunologic History: Reports: Other (See Below) Other Immunologic History: on dialysis Dermatologic History: Reports: Psoriasis - Infectious Disease History Infectious Disease History: Reports: Chicken Pox - Past Surgical History HEENT Surgical History: Reports: Other (See Below) Other HEENT Surgeries/Procedures: deviated spetum surgery x2. Cardiovascular Surgical History: Reports: None GI Surgical History: Reports: Colonoscopy Other GI Surgeries/Procedures: peritoneal dialysis catheter Male Surgical History: Reports: Vasectomy Neurological Surgical History: Reports: None Musculoskeletal Surgical History: Reports: Other (See Below) Other Musculoskeletal Surgeries/Procedures:: right ankle Social & Family History - Family History Family Medical History: No Pertinent Family History - Tobacco Use Tobacco Use Status *Q: Never Tobacco User - Caffeine Use Caffeine Use: Reports: Coffee ED ROS GENERAL - Review of Systems Review Of Systems: Unable To Obtain Reason Not Obtained: GCS4 ED EXAM, NEURO - Physical Exam Exam: See Below Exam Limited By: Altered Mental Status General Appearance: Obtunded (GS 4) Eye Exam: Bilateral Eye: PERRL Throat/Mouth: Normal Inspection, Normal Lips, Normal Teeth, Normal Oropharynx, No Airway Compromise Head Exam: Atraumatic, Normocephalic Neck: Normal Inspection, Supple, Non-Tender, Full Range of Motion Respiratory/Chest: No Respiratory Distress, Lungs Clear, Normal Breath Sounds, No Accessory Muscle Use, Chest Non-Tender Cardiovascular: Regular Rate, Rhythm, No Murmur GI/Abdominal: Soft, Non-Tender Neurological: Withdraws to Pain, Other (GS 4, appears postictal) Course - Vital Signs Last Recorded V/S: Last Vital Signs Temp 99.0 F 09/23/20 18:06 Pulse 100 09/23/20 18:06 Resp 19 09/23/20 18:06 BP 187/82 H 09/23/20 18:06 Pulse Ox 94 L 09/23/20 18:06 - Orders/Labs/Meds Orders: Active Orders 24 hr Category Date Time Status EKG Documentation Completion [RC] ASDIRECTED Care 09/23/20 18:10 Active Sodium Chloride 0.9% [Normal Saline] 1,000 ml Med 09/23/20 18:15 Active IV ASDIRECTED EKG 12 Lead [EK] Stat Ther 09/23/20 18:09 Ordered Medication Orders Sodium Chloride (Normal Saline) 1,000 mls @ 500 mls/hr IV ASDIRECTED GLORIA Last Admin: 09/23/20 18:15 Dose: 125 mls/hr Documented by: GRACE Labs: Laboratory Tests 09/23/20 09/23/20 09/23/20 Range/Units 18:20 18:20 18:20 WBC 14.5 H (4.5-11.0) K/uL RBC 3.33 L (4.30-5.90) M/uL Hgb 10.6 L (12.0-15.0) g/dL Hct 32.5 L (40.0-54.0) % MCV 98 (80-98) fL MCH 32 H (27-31) pg MCHC 33 (32-36) % Plt Count 323 (150-400) K/uL Neut % (Auto) 65 (36-66) % Lymph % (Auto) 23 L (24-44) % Howard % (Auto) 10 H (2-6) % Eos % (Auto) 2 (2-4) % Baso % (Auto) 0 (0-1) % Sodium 127 L (140-148) mmol/L Potassium 3.4 L (3.6-5.2) mmol/L Chloride 90 L (100-108) mmol/L Carbon Dioxide 20 L (21-32) mmol/L Anion Gap 20.4 H (5.0-14.0) mmol/L BUN 53 H (7-18) mg/dL Creatinine 7.0 H* (0.8-1.3) mg/dL Est Cr Clr Drug Dosing 10.93 mL/min Estimated GFR (MDRD) 8 L (>60) Glucose 135 H (74-106) mg/dL Lactic Acid (0.4-2.0) mmol/L Calcium 9.4 (8.5-10.1) mg/dL Phosphorus 4.5 (2.5-4.9) mg/dL Magnesium 2.3 (1.8-2.4) mg/dL Total Bilirubin 0.5 (0.2-1.0) mg/dL AST 21 (15-37) U/L ALT 19 (12-78) U/L Alkaline Phosphatase 85 (46-116) U/L Ammonia 14 (11-32) mmol/L Troponin I < 0.017 (0.000-0.056) ng/mL Total Protein 7.2 (6.4-8.2) g/dL Albumin 2.8 L (3.4-5.0) g/dL Globulin 4.4 H (2.3-3.5) g/dL Albumin/Globulin Ratio 0.6 L (1.2-2.2) Urine Color (YELLOW) Urine Appearance (CLEAR) Urine pH (5.0-8.0) Ur Specific Upton (1.008-1.030) Urine Protein (NEGATIVE) mg/dL Urine Glucose (UA) (NEGATIVE) mg/dL Urine Ketones (NEGATIVE) mg/dL Urine Occult Blood (NEGATIVE) Urine Nitrite (NEGATIVE) Urine Bilirubin (NEGATIVE) Urine Urobilinogen (0.2-1.0) EU/dL Ur Leukocyte Esterase (NEGATIVE) Urine RBC (0-5) Urine WBC (0-5) Ur Epithelial Cells Amorphous Sediment Urine Bacteria Urine Mucus Salicylates (2.0-20.0) mg/dL Acetaminophen 0.0 L (10.0-30.0) ug/mL Ethyl Alcohol mg/dL 09/23/20 09/23/20 09/23/20 Range/Units 18:20 18:20 18:20 WBC (4.5-11.0) K/uL RBC (4.30-5.90) M/uL Hgb (12.0-15.0) g/dL Hct (40.0-54.0) % MCV (80-98) fL MCH (27-31) pg MCHC (32-36) % Plt Count (150-400) K/uL Neut % (Auto) (36-66) % Lymph % (Auto) (24-44) % Howard % (Auto) (2-6) % Eos % (Auto) (2-4) % Baso % (Auto) (0-1) % Sodium (140-148) mmol/L Potassium (3.6-5.2) mmol/L Chloride (100-108) mmol/L Carbon Dioxide (21-32) mmol/L Anion Gap (5.0-14.0) mmol/L BUN (7-18) mg/dL Creatinine (0.8-1.3) mg/dL Est Cr Clr Drug Dosing mL/min Estimated GFR (MDRD) (>60) Glucose (74-106) mg/dL Lactic Acid 5.8 H (0.4-2.0) mmol/L Calcium (8.5-10.1) mg/dL Phosphorus (2.5-4.9) mg/dL Magnesium (1.8-2.4) mg/dL Total Bilirubin (0.2-1.0) mg/dL AST (15-37) U/L ALT (12-78) U/L Alkaline Phosphatase (46-116) U/L Ammonia (11-32) mmol/L Troponin I (0.000-0.056) ng/mL Total Protein (6.4-8.2) g/dL Albumin (3.4-5.0) g/dL Globulin (2.3-3.5) g/dL Albumin/Globulin Ratio (1.2-2.2) Urine Color (YELLOW) Urine Appearance (CLEAR) Urine pH (5.0-8.0) Ur Specific Upton (1.008-1.030) Urine Protein (NEGATIVE) mg/dL Urine Glucose (UA) (NEGATIVE) mg/dL Urine Ketones (NEGATIVE) mg/dL Urine Occult Blood (NEGATIVE) Urine Nitrite (NEGATIVE) Urine Bilirubin (NEGATIVE) Urine Urobilinogen (0.2-1.0) EU/dL Ur Leukocyte Esterase (NEGATIVE) Urine RBC (0-5) Urine WBC (0-5) Ur Epithelial Cells Amorphous Sediment Urine Bacteria Urine Mucus Salicylates 1.4 L (2.0-20.0) mg/dL Acetaminophen (10.0-30.0) ug/mL Ethyl Alcohol < 3 mg/dL 09/23/20 Range/Units 22:07 WBC (4.5-11.0) K/uL RBC (4.30-5.90) M/uL Hgb (12.0-15.0) g/dL Hct (40.0-54.0) % MCV (80-98) fL MCH (27-31) pg MCHC (32-36) % Plt Count (150-400) K/uL Neut % (Auto) (36-66) % Lymph % (Auto) (24-44) % Howard % (Auto) (2-6) % Eos % (Auto) (2-4) % Baso % (Auto) (0-1) % Sodium (140-148) mmol/L Potassium (3.6-5.2) mmol/L Chloride (100-108) mmol/L Carbon Dioxide (21-32) mmol/L Anion Gap (5.0-14.0) mmol/L BUN (7-18) mg/dL Creatinine (0.8-1.3) mg/dL Est Cr Clr Drug Dosing mL/min Estimated GFR (MDRD) (>60) Glucose (74-106) mg/dL Lactic Acid (0.4-2.0) mmol/L Calcium (8.5-10.1) mg/dL Phosphorus (2.5-4.9) mg/dL Magnesium (1.8-2.4) mg/dL Total Bilirubin (0.2-1.0) mg/dL AST (15-37) U/L ALT (12-78) U/L Alkaline Phosphatase (46-116) U/L Ammonia (11-32) mmol/L Troponin I (0.000-0.056) ng/mL Total Protein (6.4-8.2) g/dL Albumin (3.4-5.0) g/dL Globulin (2.3-3.5) g/dL Albumin/Globulin Ratio (1.2-2.2) Urine Color Yellow (YELLOW) Urine Appearance Clear (CLEAR) Urine pH 8.5 H (5.0-8.0) Ur Specific Upton 1.020 (1.008-1.030) Urine Protein 100 H (NEGATIVE) mg/dL Urine Glucose (UA) Negative (NEGATIVE) mg/dL Urine Ketones Negative (NEGATIVE) mg/dL Urine Occult Blood Trace-intact H (NEGATIVE) Urine Nitrite Negative (NEGATIVE) Urine Bilirubin Negative (NEGATIVE) Urine Urobilinogen 0.2 (0.2-1.0) EU/dL Ur Leukocyte Esterase Negative (NEGATIVE) Urine RBC 5-10 H (0-5) Urine WBC Not seen (0-5) Ur Epithelial Cells Not seen Amorphous Sediment Not seen Urine Bacteria Rare Urine Mucus Not seen Salicylates (2.0-20.0) mg/dL Acetaminophen (10.0-30.0) ug/mL Ethyl Alcohol mg/dL Meds: Medications Generic Name Dose Route Start Last Admin Trade Name Giancarloq PRN Reason Stop Dose Admin Sodium Chloride 1,000 mls @ 500 mls/hr 09/23/20 18:15 09/23/20 18:15 Normal Saline IV 125 mls/hr ASDIRECTED GLORIA Administration - Re-Assessments/Exams Free Text/Narrative Re-Assessment/Exam: 09/23/20 20:05 Called and discussed the case with Dr. Nobles emergency room physician [facility] about possible transfer for the prolonged postictal state and elevated creatinine at 7.0. After reviewing the record with Dr. Nobles his baseline creatinine is 7.0 I also do not have a transfer truck for 4 hours. So therefore we elected to do watchful waiting in the emergency department he will receive some fluids eat and drink if his mentation continues to improve plan is to discharge him to home and continue with his peritoneal dialysis however if he is still in a prolonged postictal period then will transfer to [facility] Departure - Departure Time of Disposition: 22:27 Disposition: DC/Tfer to Acute Hospital 02 Clinical Impression: Post-ictal confusion, Breakthrough seizure - Discharge Information Referrals: PCP,None [Primary Care Provider] - Forms: ED Department Discharge Sepsis Event Note (ED) - Evaluation Sepsis Screening Result: No Definite Risk - Focused Exam Vital Signs: Vital Signs Temp Pulse Resp BP Pulse Ox 09/23/20 18:06 99.0 F 100 19 187/82 H 94 L - My Orders Last 24 Hours: My Active Orders 09/23/20 18:09 EKG 12 Lead [EK] Stat 09/23/20 18:10 EKG Documentation Completion [RC] ASDIRECTED 09/23/20 18:15 Sodium Chloride 0.9% [Normal Saline] 1,000 ml IV ASDIRECTED - Assessment/Plan Last 24 Hours: My Active Orders 09/23/20 18:09 EKG 12 Lead [EK] Stat 09/23/20 18:10 EKG Documentation Completion [RC] ASDIRECTED 09/23/20 18:15 Sodium Chloride 0.9% [Normal Saline] 1,000 ml IV ASDIRECTED Plan: Assessment Acuity = acute Site and laterality = breakthrough seizure with prolonged postictal. Etiology = unknown probable medical compliance contributing to the cause Manifestations = none Location of injury = Home Lab values = WBC elevated 14.5 consistent leukocytosis, hemoglobin 10.6 consistent with normochromic anemia sodium low at 127 consistent hyponatremia po tassium low at 3.4 consistent hypokalemia creatinine elevated at 7.0 consistent with end-stage renal disease G5 lactic acid elevated 5.8 consistent lactic acidosis troponin was negative CT scan shows of the head shows no acute process Plan Call discussed case Dr. Nobles emergency room physician [facility] at 2220 kindly excepted patient in transport will be transported via EMS ground [facility] This note was dictated using [employer] voice recognition software please call with any questions on syntax or grammar.
--- NOTE | 2020-09-23 19:00 | CRLCT ---
Indication: Altered mental status Technique: Volumetric multidetector CT images of the head were obtained without the administration of low osmolar intravenous contrast. Comparison: CT head June 28, 2017 Findings: There is no intra-axial or extra-axial fluid collection. There is no mass effect or midline shift. There is age-related cortical atrophy with moderate sulcal widening and ex vacuo dilatation of the lateral ventricles. There are likely old lacunar changes of the basal ganglia. There are chronic small vessel disease changes in the subcortical and periventricular white matter without lost cummings-white differentiation. The orbits and their contents are grossly within normal limits. The bony calvarium is grossly intact. There is extensive chronic mucosal thickening seen throughout the paranasal sinuses. The mastoid air cells are well aerated. Impression: Stable age-related and chronic small-vessel disease changes of the brain without acute intracranial abnormality. Please note that all CT scans at this facility use dose modulation, iterative reconstruction, and/or weight-based dosing when appropriate to reduce radiation dose to as low as reasonably achievable. Dictated by Yo Liang MD @ Sep 23 2020 6:55PM Signed by Dr. Yo Liang @ Sep 23 2020 6:58PM
== END 2020-09-24 00:02 ==
LOC: JP.ED 17:59
DX: G40.909 Epilepsy, unspecified, not intractable, without status epilepticus (principal); I12.9 Hypertensive chronic kidney disease with stage 1 through stage 4 chronic kidney disease, or unspecified chronic kidney disease; N18.9 Chronic kidney disease, unspecified; J45.909 Unspecified asthma, uncomplicated; M10.9 Gout, unspecified; Z88.0 Allergy status to penicillin; Z91.040 Latex allergy status; Z79.82 Long term (current) use of aspirin; Z79.899 Other long term (current) drug therapy
CPT/HCPCS: 36415; 70450; 80053; 80143; 80179; 80307; 81001; 82140; 83605; 83735; 84100; 84484; 85025; 93005; 93010; 99285; J7030; U0002; 99284

== ENCOUNTER 2020-12-23 14:55 | Emergency (ER) | payer MEDICARE, BC ==
[2020-12-23] MEDS ORDERED: Aspirin 81 MG Tab.Chew PO ONE (15:10)
[2020-12-23] MEDS ORDERED: Morphine 4 MG/ML Syringe IVPUSH PRN (15:10)
[2020-12-23] MEDS ORDERED: Sodium Chloride 0.9% 10 ML Syringe FLUSH PRN (15:10)
--- NOTE | 2020-12-23 15:13 | EDM.PDOC ---
ED HPI GENERAL MEDICAL PROBLEM - General Stated Complaint: CHEST PAIN Time Seen by Provider: 12/23/20 15:10 Source of Information: Reports: Patient, Family, RN Notes Reviewed History Limitations: Reports: No Limitations - History of Present Illness INITIAL COMMENTS - FREE TEXT/NARRATIVE: 7-year-old gentleman presents emergency department day complaint of chest pain, he states it started about 1 hour prior to presentation he does feel short of breath there is no diaphoresis no nausea he has never had this before no history of heart disease does have an extensive seizure disorder states he was not ex erting himself when the pain came on, history of peritoneal dialysis Chest Pain Score (Numeric/FACES): 1 - Related Data Allergies Allergy/AdvReac Type Severity Reaction Status Date / Time bupropion [From Wellbutrin] Allergy Other Verified 12/23/20 15:12 latex Allergy Rash Verified 12/23/20 15:12 Penicillins Allergy Cannot Verified 12/23/20 15:12 Remember Home Meds: Home Meds Allopurinol [Zyloprim] 100 mg PO BID 10/09/15 [History] Aspirin [Adult Low Dose Aspirin EC] 81 mg PO DAILY 10/09/15 [History] Furosemide [Lasix] 40 mg PO DAILY 10/09/15 [History] Propranolol [Inderal] 60 mg PO BID 10/09/15 [History] Folic Acid/Vit B Complex and C [Dialyvite] 1 tab PO DAILY 06/28/17 [History] Gabapentin [Neurontin] 400 mg PO DAILY 07/16/17 [History] Albuterol Sulfate [Proair Hfa] 2 puff IH Q4H PRN 01/30/19 [History] Fluticasone Propionate [Flonase] 2 spray NASBOTH BID PRN 01/30/19 [History] Docusate Sodium [Colace] 200 mg PO DAILY PRN 02/01/19 [History] Loratadine [Claritin] 10 mg PO DAILY 02/01/19 [History] calcitrioL [Calcitriol] 0.25 mcg PO DAILY 02/01/19 [History] FLUoxetine [PROzac] 60 mg PO DAILY 09/23/20 [History] Sevelamer HCl [Renagel] 800 mg PO TID 12/23/20 [History] atorvaSTATin Calcium [Atorvastatin Calcium] 40 mg PO DAILY 04/26/21 [History] Past Medical History HEENT History: Reports: Impaired Vision, Other (See Below) Other HEENT History: Wears glasses Cardiovascular History: Reports: High Cholesterol, Hypertension Respiratory History: Reports: Asthma, Pneumonia, Recurrent, Sleep Apnea Other Respiratory History: Seasonal asthma Gastrointestinal History: Reports: Colon Polyp Genitourinary History: Reports: Chronic Renal Insuffiency, Dialysis, Peritoneal, Renal Disease, Other (See Below) Other Genitourinary History: renal failure Musculoskeletal History: Reports: Fracture, Gout Neurological History: Reports: Seizure, Other (See Below) Other Neuro History: tremors, idiopathetic progressive neuropathy, mild cognitive impairment Psychiatric History: Reports: Anxiety, Depression Immunologic History: Reports: Other (See Below) Other Immunologic History: on dialysis Dermatologic History: Reports: Psoriasis - Infectious Disease History Infectious Disease History: Reports: Chicken Pox - Past Surgical History HEENT Surgical History: Reports: Other (See Below) Other HEENT Surgeries/Procedures: deviated spetum surgery x2. Cardiovascular Surgical History: Reports: None GI Surgical History: Reports: Colonoscopy Other GI Surgeries/Procedures: peritoneal dialysis catheter Male Surgical History: Reports: Vasectomy Neurological Surgical History: Reports: None Musculoskeletal Surgical History: Reports: Other (See Below) Other Musculoskeletal Surgeries/Procedures:: right ankle Social & Family History - Family History Family Medical History: No Pertinent Family History - Caffeine Use Caffeine Use: Reports: Coffee ED ROS GENERAL - Review of Systems Review Of Systems: See Below Constitutional: Reports: No Symptoms HEENT: Reports: No Symptoms Respiratory: Reports: Shortness of Breath Cardiovascular: Reports: Chest Pain GI/Abdominal: Reports: No Symptoms ED EXAM, GENERAL - Physical Exam Exam: See Below Exam Limited By: No Limitations General Appearance: Alert, WD/WN, No Apparent Distress Respiratory/Chest: No Respiratory Distress, Lungs Clear, Normal Breath Sounds, No Accessory Muscle Use, Chest Non-Tender Cardiovascular: Regular Rate, Rhythm, No Murmur GI/Abdominal: Soft, Non-Tender Extremities: No Pedal Edema Course - Vital Signs Last Recorded V/S: Last Vital Signs Temp 98.2 F 12/23/20 15:06 Pulse 58 L 12/23/20 17:02 Resp 18 12/23/20 17:02 BP 182/99 H 12/23/20 17:02 Pulse Ox 95 12/23/20 16:49 - Orders/Labs/Meds Orders: Active Orders 24 hr Category Date Time Status Cardiac Monitoring [RC] .As Directed Care 12/23/20 15:10 Active EKG Documentation Completion [RC] ASDIRECTED Care 12/23/20 15:11 Active Peripheral IV Care [RC] . DIRECTED Care 12/23/20 15:11 Active Morphine Med 12/23/20 15:10 Active 4 mg IVPUSH Q10M PRN Nitroglycerin [Nitrostat] Med 12/23/20 15:10 Active 0.4 mg SL Q5M PRN Sodium Chloride 0.9% [Saline Flush] Med 12/23/20 15:10 Active 10 ml FLUSH ASDIRECTED PRN Peripheral IV Insertion Adult [OM.PC] Stat Oth 12/23/20 15:10 Ordered Saline Lock Insert [OM.PC] Stat Oth 12/23/20 15:10 Ordered EKG 12 Lead [EK] Stat Ther 12/23/20 15:11 Ordered Medication Orders Morphine Sulfate (Morphine 4 Mg/Ml Syringe) 4 mg IVPUSH Q10M PRN PRN Reason: Chest Pain Stop: 12/24/20 15:11 Nitroglycerin (Nitroglycerin 0.4 Mg Tab.Sl) 0.4 mg SL Q5M PRN PRN Reason: Chest Pain Stop: 12/24/20 15:11 Last Admin: 12/23/20 15:31 Dose: 0.4 mg Documented by: Admin: 12/23/20 15:23 Dose: 0.4 mg Documented by: PREILOR Sodium Chloride (Sodium Chloride 0.9% 10 Ml Syringe) 10 ml FLUSH ASDIRECTED PRN PRN Reason: Keep Vein Open Last Admin: 12/23/20 15:29 Dose: 10 ml Documented by: PREILOR Labs: Laboratory Tests 12/23/20 12/23/20 12/23/20 Range/Units 15:18 15:23 17:40 WBC 14.3 H (4.5-11.0) K/uL RBC 2.76 L (4.30-5.90) M/uL Hgb 8.9 L (12.0-15.0) g/dL Hct 28.0 L (40.0-54.0) % MCV 101 H (80-98) fL MCH 32 H (27-31) pg MCHC 32 (32-36) % Plt Count 377 (150-400) K/uL Neut % (Auto) 78 H (36-66) % Lymph % (Auto) 13 L (24-44) % [place] % (Auto) 8 H (2-6) % Eos % (Auto) 1 L (2-4) % Baso % (Auto) 0 (0-1) % Sodium 134 L (140-148) mmol/L Potassium 4.2 (3.6-5.2) mmol/L Chloride 94 L (100-108) mmol/L Carbon Dioxide 29 (21-32) mmol/L Anion Gap 15.2 H (5.0-14.0) mmol/L BUN 59 H (7-18) mg/dL Creatinine 6.6 H* (0.8-1.3) mg/dL Est Cr Clr Drug Dosing 10.41 mL/min Estimated GFR (MDRD) 8 L (>60) Glucose 92 (74-106) mg/dL Calcium 9.6 (8.5-10.1) mg/dL Troponin I < 0.017 < 0.017 (0.000-0.056) ng/mL Meds: Medications Generic Name Dose Route Start Last Admin Trade Name Freq PRN Reason Stop Dose Admin Morphine Sulfate 4 mg 12/23/20 15:10 Morphine 4 Mg/Ml Syringe IVPUSH 12/24/20 15:11 Q10M PRN Chest Pain Nitroglycerin 0.4 mg 12/23/20 15:10 12/23/20 15:31 Nitroglycerin 0.4 Mg Tab.Sl SL 12/24/20 15:11 0.4 mg Q5M PRN Administration Chest Pain Sodium Chloride 10 ml 12/23/20 15:10 12/23/20 15:29 Sodium Chloride 0.9% 10 Ml Syringe FLUSH 10 ml ASDIRECTED PRN Administration Keep Vein Open Discontinued Medications Generic Name Dose Route Start Last Admin Trade Name Freq PRN Reason Stop Dose Admin Aspirin 324 mg 12/23/20 15:10 12/23/20 15:22 Aspirin 81 Mg Tab.Chew PO 12/23/20 15:11 324 mg ONETIME ONE Administration - Re-Assessments/Exams Free Text/Narrative Re-Assessment/Exam: 12/23/20 18:07 Heart score is 3 Departure - Departure Time of Disposition: 18:10 Disposition: Home, Self-Care 01 Condition: Fair Clinical Impression: Chest pain Qualifiers: Chest pain type: unspecified Qualified Code(s): R07.9 - Chest pain, unspecified Instructions: Nonspecific Chest Pain, Adult Referrals: Gilmar Clarke MD [Primary Care Provider] - Additional Instructions: Please contact your primary care provider and schedule a stress test this week, call return to the emergency department worsening of symptoms Sepsis Event Note (ED) - Focused Exam Vital Signs: Vital Signs Temp Pulse Resp BP BP Pulse Ox 12/23/20 17:02 58 L 18 182/99 H 12/23/20 16:49 58 L 12 185/100 H 95 12/23/20 16:30 59 L 16 169/94 H 96 12/23/20 16:07 59 L 16 154/94 H 97 12/23/20 15:48 94 132/81 96 12/23/20 15:36 61 12 170/95 H 92 L 12/23/20 15:31 162/100 H 12/23/20 15:23 170/96 H 12/23/20 15:06 98.2 F 60 16 198/105 H 99 - My Orders Last 24 Hours: My Active Orders 12/23/20 15:10 Cardiac Monitoring [RC] .As Directed Morphine 4 mg IVPUSH Q10M PRN Nitroglycerin [Nitrostat] 0.4 mg SL Q5M PRN Sodium Chloride 0.9% [Saline Flush] 10 ml FLUSH ASDIRECTED PRN Peripheral IV Insertion Adult [OM.PC] Stat Saline Lock Insert [OM.PC] Stat 12/23/20 15:11 EKG Documentation Completion [RC] ASDIRECTED Peripheral IV Care [RC] . DIRECTED EKG 12 Lead [EK] Stat - Assessment/Plan Last 24 Hours: My Active Orders 12/23/20 15:10 Cardiac Monitoring [RC] .As Directed Morphine 4 mg IVPUSH Q10M PRN Nitroglycerin [Nitrostat] 0.4 mg SL Q5M PRN Sodium Chloride 0.9% [Saline Flush] 10 ml FLUSH ASDIRECTED PRN Peripheral IV Insertion Adult [OM.PC] Stat Saline Lock Insert [OM.PC] Stat 12/23/20 15:11 EKG Documentation Completion [RC] ASDIRECTED Peripheral IV Care [RC] . DIRECTED EKG 12 Lead [EK] Stat Plan: Assessment Acuity = acute Site and laterality = chest pain Etiology = unknown Manifestations = none Location of injury = Home Lab values = WBC elevated 14.3 consistent leukocytosis, hemoglobin low at 8.9 consistent microchromic anemia creatinine elevated 6.6 consistent with end-stage renal disease G5 ED, troponin was negative x2 3 hours apart chest x-ray shows no acute process EKG also no ST elevations or depressions Plan His heart score is 3 initial pain was relieved with nitro however he remained chest pain-free while in the emergency department negative troponins he has been to follow-up with his primary care this week for a stress test return to the emergency department worsening of symptoms This note was dictated using [employer] voice recognition software please call with any questions on syntax or grammar.
[2020-12-23] MEDS: Nitroglycerin 0.4 MG Tab.SL SL PRN ×2 (15:23→15:31)
--- NOTE | 2020-12-23 15:29 | CR ---
CHEST: Portable 12/23/2020 at 3:28 PM CLINICAL HISTORY:Fever COMPARISON:2019 FINDINGS: The heart size, pulmonary vascularity and hilar structures are normal. No infiltrate effusion or pneumothorax is seen. There are atherosclerotic changes in the aorta. Previously seen right infrahilar pneumonic infiltrate is resolved. There is some minimal scarring IMPRESSION: No acute cardiopulmonary process.
[2020-12-23 16:50] VITALS: PULSE 58
[2020-12-23 17:03] VITALS: BP 182/99
== END 2020-12-23 18:57 | disposition home or self-care (01) ==
LOC: JP.ED 14:55
DX: R07.9 Chest pain, unspecified (principal); I12.9 Hypertensive chronic kidney disease with stage 1 through stage 4 chronic kidney disease, or unspecified chronic kidney disease; E78.00 Pure hypercholesterolemia, unspecified; J45.909 Unspecified asthma, uncomplicated; N18.9 Chronic kidney disease, unspecified; Z88.0 Allergy status to penicillin; Z91.040 Latex allergy status; Z79.82 Long term (current) use of aspirin; Z79.899 Other long term (current) drug therapy
CPT/HCPCS: 36415; 71045; 80048; 84484; 85025; 93005; 93010; 96374; 99284; 99285; A9270

== ENCOUNTER 2021-02-22 09:47 | Emergency (ER) | payer MEDICARE, BC ==
--- NOTE | 2021-02-22 10:35 | EDM.PDOC ---
ED HPI GENERAL MEDICAL PROBLEM - General Chief Complaint: Gastrointestinal Problem Stated Complaint: PRODUCTIVE COUGH, SLIGHT FEVER Time Seen by Provider: 02/22/21 10:15 Source of Information: Reports: Patient, Old Records, RN History Limitations: Reports: No Limitations - History of Present Illness INITIAL COMMENTS - FREE TEXT/NARRATIVE: 70 yo male here with his for evaluation of a cough with SOB and a low grade fever of 99+F. He sometimes coughs hard enough to gag and vomit. He thinks the cough has been slightly productive. Onset of sx's yesterday. He does peritoneal dialysis at home. Onset: Gradual Onset Date: 02/21/21 Duration: Day(s): (1), Getting Worse Location: Reports: Chest Quality: Reports: Other (pain not reported) Severity: Moderate Improves with: Reports: None Worsens with: Reports: Other (? time) Context: Reports: Other (See HPI) Associated Symptoms: Reports: Cough, Nausea/Vomiting (no nausea), Shortness of Breath. 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 (see below) (none) - Related Data Allergies Allergy/AdvReac Type Severity Reaction Status Date / Time bupropion [From Wellbutrin] Allergy Other Verified 02/22/21 10:11 latex Allergy Rash Verified 02/22/21 10:11 Penicillins Allergy Cannot Verified 02/22/21 10:11 Remember Home Meds: Home Meds Allopurinol [Zyloprim] 100 mg PO BID 10/09/15 [History] Furosemide [Lasix] 40 mg PO DAILY 10/09/15 [History] Propranolol [Inderal] 60 mg PO BID 10/09/15 [History] Folic Acid/Vit B Complex and C [Dialyvite] 1 tab PO DAILY 06/28/17 [History] Gabapentin [Neurontin] 300 mg PO DAILY 07/16/17 [History] Docusate Sodium [Colace] 200 mg PO DAILY PRN 02/01/19 [History] Loratadine [Claritin] 10 mg PO ASDIRECTED 02/01/19 [History] calcitrioL [Calcitriol] 0.25 mcg PO DAILY 02/01/19 [History] FLUoxetine [PROzac] 60 mg PO ASDIRECTED 09/23/20 [History] Sevelamer HCl [Renagel] 800 mg PO TID 12/23/20 [History] atorvaSTATin Calcium [Atorvastatin Calcium] 40 mg PO DAILY 12/23/20 [History] Venlafaxine [Effexor] 75 mg PO DAILY 02/22/21 [History] Past Medical History HEENT History: Reports: Impaired Vision, Other (See Below) Other HEENT History: Wears glasses Cardiovascular History: Reports: High Cholesterol, Hypertension Respiratory History: Reports: Asthma, Pneumonia, Recurrent, Sleep Apnea Other Respiratory History: Seasonal asthma Gastrointestinal History: Reports: Colon Polyp Genitourinary History: Reports: Chronic Renal Insuffiency, Dialysis, Peritoneal, Renal Disease, Other (See Below) Other Genitourinary History: renal failure Musculoskeletal History: Reports: Fracture, Gout Neurological History: Reports: Seizure, Other (See Below) Other Neuro History: tremors, idiopathetic progressive neuropathy, mild cognitive impairment Psychiatric History: Reports: Anxiety, Depression Immunologic History: Reports: Other (See Below) Other Immunologic History: on dialysis Dermatologic History: Reports: Psoriasis - Infectious Disease History Infectious Disease History: Reports: Chicken Pox - Past Surgical History Head Surgeries/Procedures: Reports: None HEENT Surgical History: Reports: Other (See Below) Other HEENT Surgeries/Procedures: deviated spetum surgery x2. Cardiovascular Surgical History: Reports: None Respiratory Surgical History: Reports: None GI Surgical History: Reports: Colonoscopy Other GI Surgeries/Procedures: peritoneal dialysis catheter Male Surgical History: Reports: Vasectomy Other Male Surgeries/Procedures: peritoneal dialysis since 2014 Endocrine Surgical History: Reports: None Neurological Surgical History: Reports: None Musculoskeletal Surgical History: Reports: Other (See Below) Other Musculoskeletal Surgeries/Procedures:: right ankle Dermatological Surgical History: Reports: None Social & Family History - Family History Family Medical History: No Pertinent Family History - Tobacco Use Tobacco Use Status *Q: Never Tobacco User Second Hand Smoke Exposure: No - Caffeine Use Caffeine Use: Reports: Coffee - Recreational Drug Use Recreational Drug Use: No ED ROS GENERAL - Review of Systems Review Of Systems: See Below Constitutional: Reports: Malaise HEENT: Reports: No Symptoms Respiratory: Reports: Shortness of Breath, Cough, Sputum. Denies: Wheezing, Pleuritic Chest Pain, Hemoptysis Cardiovascular: Reports: No Symptoms GI/Abdominal: Reports: Vomiting (with coughing). Denies: Diarrhea, Nausea : Reports: No Symptoms Musculoskeletal: Reports: No Symptoms Skin: Reports: No Symptoms Neurological: Reports: No Symptoms ED EXAM, GENERAL - Physical Exam Exam: See Below Exam Limited By: No Limitations General Appearance: Alert, WD/WN, No Apparent Distress Eye Exam: Bilateral Eye: Normal Inspection Ears: Normal External Exam, Normal Canal, Hearing Grossly Normal, Normal TMs Ear Exam: Bilateral Ear: Auricle Normal, Canal Normal Nose: Normal Inspection, No Blood Throat/Mouth: Normal Inspection, Normal Lips, Normal Oropharynx, Normal Voice, No Airway Compromise Head: Atraumatic, Normocephalic Neck: Normal Inspection Respiratory/Chest: No Respiratory Distress, No Accessory Muscle Use, Rhonchi (on right) Cardiovascular: Regular Rate, Rhythm, No Edema GI/Abdominal: Normal Bowel Sounds, Soft, Non-Tender, No Distention Extremities: Normal Inspection, Normal Range of Motion, Non-Tender, No Pedal Edema Neurological: Alert, Oriented, CN II-XII Intact, Normal Cognition, No Motor/Sensory Deficits Psychiatric: Normal Affect, Normal Mood Skin Exam: Warm, Dry, Intact, Normal Color, No Rash #1 Interpretation EKG Date: 02/22/21 Time: 11:55 Rhythm: Other (3rd degree block) Rate (Beats/Min): 45 [place]: Normal P-Wave: Present (does not coincide with QRS complex, complete disassociation) QRS: Normal ST-T: Elevated ([address] elevation I, AVL) QT: Prolonged Comparison: Change From Previous EKG Course - Vital Signs Text/Narrative:: Called Raymond Aguero @ 1323h, Dr. Roa accepted @ 1332h Last Recorded V/S: Last Vital Signs Temp 36.7 C 02/22/21 10:17 Pulse 47 L 02/22/21 15:21 Resp 19 02/22/21 15:21 BP 116/65 02/22/21 15:21 Pulse Ox 91 L 02/22/21 15:21 - Orders/Labs/Meds Orders: Active Orders 24 hr Category Date Time Status Chest 2V [CR] Stat Exams 02/22/21 10:28 Taken UA W/MICROSCOPIC [URIN] Stat Lab 02/22/21 11:11 Ordered EKG 12 Lead [EK] Routine Ther 02/22/21 11:37 Ordered Labs: Laboratory Tests 02/22/21 02/22/21 02/22/21 Range/Units 10:35 10:35 11:14 WBC 24.1 H (4.5-11.0) K/uL RBC 2.44 L (4.30-5.90) M/uL Hgb 8.3 L (12.0-15.0) g/dL Hct 25.3 L (40.0-54.0) % MCV 104 H (80-98) fL MCH 34 H (27-31) pg MCHC 33 (32-36) % Plt Count 243 (150-400) K/uL D-Dimer, Quantitative 3408.67 H (0.0-500.0) ng/mL Sodium 127 L (140-148) mmol/L Potassium 4.7 (3.6-5.2) mmol/L Chloride 88 L (100-108) mmol/L Carbon Dioxide 29 (21-32) mmol/L Anion Gap 14.7 H (5.0-14.0) mmol/L BUN 65 H (7-18) mg/dL Creatinine 7.9 H* (0.8-1.3) mg/dL Est Cr Clr Drug Dosing 8.70 mL/min Estimated GFR (MDRD) 7 L (>60) Glucose 160 H (74-106) mg/dL Lactic Acid (0.4-2.0) mmol/L Calcium 8.9 (8.5-10.1) mg/dL Troponin I (0.000-0.056) ng/mL SARS CoV-2 RNA Rapid ASHER 02/22/21 02/22/21 02/22/21 Range/Units 11:14 11:14 13:47 WBC (4.5-11.0) K/uL RBC (4.30-5.90) M/uL Hgb (12.0-15.0) g/dL Hct (40.0-54.0) % MCV (80-98) fL MCH (27-31) pg MCHC (32-36) % Plt Count (150-400) K/uL D-Dimer, Quantitative (0.0-500.0) ng/mL Sodium (140-148) mmol/L Potassium (3.6-5.2) mmol/L Chloride (100-108) mmol/L Carbon Dioxide (21-32) mmol/L Anion Gap (5.0-14.0) mmol/L BUN (7-18) mg/dL Creatinine (0.8-1.3) mg/dL Est Cr Clr Drug Dosing mL/min Estimated GFR (MDRD) (>60) Glucose (74-106) mg/dL Lactic Acid 2.2 H (0.4-2.0) mmol/L Calcium (8.5-10.1) mg/dL Troponin I 0.058 H* (0.000-0.056) ng/mL SARS CoV-2 RNA Rapid ASHER Negative Meds: Medications Discontinued Medications Generic Name Dose Route Start Last Admin Trade Name Freq PRN Reason Stop Dose Admin Atropine Sulfate 0.5 mg 02/22/21 12:58 02/22/21 13:30 Atropine 0.1 Mg/Ml 10 Ml Syringe IVPUSH 02/22/21 12:59 0.5 mg ONETIME ONE Administration Atropine Sulfate 0.5 mg 02/22/21 14:40 02/22/21 15:19 Atropine 0.1 Mg/Ml 10 Ml Syringe IVPUSH 02/22/21 14:41 0.5 mg ONETIME ONE Administration Sodium Chloride 1,000 mls @ 75 mls/hr 02/22/21 11:15 02/22/21 11:30 Normal Saline IV 75 mls/hr ASDIRECTED GLORIA Administration Sodium Chloride 100 mls @ 3 mls/sec 02/22/21 12:15 02/22/21 12:49 Normal Saline IV 02/22/21 12:16 3 mls/sec ASDIRECTED GLORIA Administration Iopamidol 67 ml 02/22/21 12:15 02/22/21 12:48 Iopamidol 755 Mg/Ml 100 Ml Bottle IV 02/22/21 12:16 67 ml . DIRECTED GLORIA Administration Sodium Chloride 10 ml 02/22/21 12:11 02/22/21 12:49 Sodium Chloride 0.9% 10 Ml Sdv FLUSH 02/22/21 12:12 10 ml ONETIME ONE Administration - Radiology Interpretation Free Text/Narrative:: CXR-neg angio chest CTA-neg for PE CT Results Date: 02/22/21 CT Results Time: 13:18 Departure - Departure Time of Disposition: 15:45 Disposition: DC/Tfer to Acute Hospital 02 Condition: Fair Clinical Impression: Third degree AV block, Elevated troponin CRF (chronic renal failure) Qualifiers: Chronic kidney disease stage: stage 5 Qualified Code(s): N18.5 - Chronic kidney disease, stage 5 - Discharge Information *PRESCRIPTION DRUG MONITORING PROGRAM REVIEWED*: Not Applicable *COPY OF PRESCRIPTION DRUG MONITORING REPORT IN PATIENT JOHN: Not Applicable Referrals: Gilmar Clarke MD [Primary Care Provider] - Forms: ED Department Discharge Sepsis Event Note (ED) - Evaluation Sepsis Screening Result: Possible Sepsis Risk - Focused Exam Vital Signs: Vital Signs Temp Pulse Resp BP Pulse Ox 02/22/21 15:21 47 L 19 116/65 91 L 02/22/21 15:16 46 L 19 131/65 94 L 02/22/21 14:11 52 L 25 H 121/80 98 02/22/21 14:00 37 L 20 109/59 L 98 02/22/21 13:31 52 L 24 H 141/79 H 98 02/22/21 13:25 44 L 18 122/65 93 L 02/22/21 12:11 44 L 22 H 112/69 99 02/22/21 11:05 46 L 19 102/70 96 02/22/21 10:17 36.7 C 54 L 22 H 117/69 94 L 02/22/21 10:10 36.7 C 54 L 22 H 117/69 94 L - My Orders Last 24 Hours: My Active Orders 02/22/21 10:28 Chest 2V [CR] Stat 02/22/21 11:11 UA W/MICROSCOPIC [URIN] Stat 02/22/21 11:37 EKG 12 Lead [EK] Routine - Assessment/Plan Last 24 Hours: My Active Orders 02/22/21 10:28 Chest 2V [CR] Stat 02/22/21 11:11 UA W/MICROSCOPIC [URIN] Stat 02/22/21 11:37 EKG 12 Lead [EK] Routine
[2021-02-22] MEDS ORDERED: Sodium Chloride 0.9% 1,000 ML IV SCH (11:15)
[2021-02-22] MEDS ORDERED: Sodium Chloride 0.9% 10 ML SDV FLUSH ONE (12:11)
[2021-02-22] MEDS ORDERED: Iopamidol 755 Mg/ML 100 ML Bottle IV SCH (12:15)
[2021-02-22] MEDS ORDERED: Sodium Chloride 0.9% 100 ML IV SCH (12:15)
[2021-02-22] MEDS ORDERED: Atropine 0.1 MG/ML 10 ML Syringe IVPUSH ONE ×2 (12:58→14:40)
--- NOTE | 2021-02-22 13:16 | CRLCT ---
For Patients: As a result of the Century Cures Act, medical imaging exams and procedure reports are released immediately into your electronic medical record. You may view this report before your referring provider. If you have questions, please contact your health care provider. Indication: Shortness of breath and elevated D-dimer Technique: Volumetric multidetector CT images of the chest were obtained after the administration of IV contrast. 66 cc Isovue 370 low osmolar intravenous contrast Comparison: None available. Findings: The thoracic inlet and thyroid gland are unremarkable. The thoracic aorta is non aneurysmal with scattered atherosclerotic calcification. There is no central filling defect to suggest pulmonary embolism. There are reactive mediastinal and hilar lymph nodes. There is mild thickening of the bronchi with mucoid impaction of the lower lobe bronchi. There is trace left greater than right basilar effusions with airspace opacities in the lung bases likely representing developing infiltrates versus atelectasis. There is likely mild pulmonary vascular congestion with trace interlobular septal thickening of the lung apices. There is no evidence of pulmonary mass or suspicious pulmonary nodule. The partially visualized upper abdomen demonstrates mild ascites fluid. The thoracic vertebral body heights are grossly maintained with endplate Schmorl`s defects. There is no significant spondylolisthesis or displaced fracture. Impression: Trace left greater than right basilar effusions with adjacent compressive atelectasis versus infiltrates. No evidence of pulmonary embolus. Likely mild pulmonary vascular congestion. Please note that all CT scans at this facility use dose modulation, iterative reconstruction, and/or weight-based dosing when appropriate to reduce radiation dose to as low as reasonably achievable. Dictated by Yo Liang MD @ 02/22/2021 1:13:[address] Yo Liang @ Feb 22 2021 1:13PM
[2021-02-22 15:22] VITALS: BP 116/65; PULSE 47
--- NOTE | 2021-02-24 10:01 | CR ---
CHEST: 2 view CLINICAL HISTORY:Cough and SOB COMPARISON:12/23/2020 FINDINGS: Patient is only partially upright.. Patient is moderately lordotic. This exaggerates heart size. Lung garcia are clear. Impression: Limited study No acute cardiopulmonary process
== END 2021-02-22 15:46 ==
LOC: JP.ED 09:47
DX: I44.2 Atrioventricular block, complete (principal); R79.89 Other specified abnormal findings of blood chemistry; I12.0 Hypertensive chronic kidney disease with stage 5 chronic kidney disease or end stage renal disease; N18.6 End stage renal disease; E78.00 Pure hypercholesterolemia, unspecified; J45.909 Unspecified asthma, uncomplicated; Z99.2 Dependence on renal dialysis; Z88.8 Allergy status to other drugs, medicaments and biological substances; Z91.040 Latex allergy status; Z88.0 Allergy status to penicillin; Z79.899 Other long term (current) drug therapy; Z20.822 Contact with and (suspected) exposure to COVID-19
CPT/HCPCS: 36415; 71046; 71275; 80048; 83605; 84484; 85027; 85379; 93005; 93010; 96374; 96376; 99285; J0461; J7030; Q9967; U0002

== ENCOUNTER 2021-08-17 14:59 | Emergency (ER) | payer MEDICARE, BC ==
[2021-08-17] MEDS ORDERED: Sodium Chloride 0.9% 10 ML Syringe FLUSH PRN (17:22)
[2021-08-17] MEDS ORDERED: Atropine 0.1 MG/ML 10 ML Syringe IVPUSH ONE (18:02)
--- NOTE | 2021-08-17 18:02 | EDM.PDOC ---
<Nica Caruso - Last Filed: 08/18/21 10:36> ED HPI GENERAL MEDICAL PROBLEM - General Chief Complaint: Gastrointestinal Problem Stated Complaint: KIDNEY FAILURE Time Seen by Provider: 08/17/21 17:30 Source of Information: Reports: Patient, Family History Limitations: Reports: No Limitations - History of Present Illness INITIAL COMMENTS - FREE TEXT/NARRATIVE: pt was in [place] because of rapid heart rates. He was put on dialysis. It was thought he was septic related to his perital dialysis, He was for that reason placed on regular dialysis. He suddenly felt ill today and he vomited several times. He was found to have a very slow heart rate. Onset: Today, Sudden Duration: Hour(s): Location: Reports: Chest Associated Symptoms: Reports: Nausea/Vomiting, Shortness of Breath, Other - Related Data Allergies Allergy/AdvReac Type Severity Reaction Status Date / Time bupropion [From Wellbutrin] Allergy Other Verified 08/17/21 17:22 latex Allergy Rash Verified 08/17/21 17:22 Penicillins Allergy Cannot Verified 08/17/21 17:22 Remember Home Meds: Home Meds Allopurinol [Zyloprim] 100 mg PO BID 10/09/15 [History] Furosemide [Lasix] 40 mg PO DAILY 10/09/15 [History] Propranolol [Inderal] 40 mg PO BID 10/09/15 [History] Folic Acid/Vit B Complex and C [Dialyvite] 1 tab PO DAILY 06/28/17 [History] Gabapentin [Neurontin] 400 mg PO DAILY 07/16/17 [History] Sevelamer HCl [Renagel] 800 mg PO TID 12/23/20 [History] atorvaSTATin Calcium [Atorvastatin Calcium] 40 mg PO DAILY 12/23/20 [History] Venlafaxine [Effexor] 75 mg PO DAILY 02/22/21 [History] Darbepoetin Eric [Arenesp] 25 mcg INJECT ASDIRECTED 08/17/21 [History] Fluticasone Propionate [Flovent] 50 mcg OMAR BID 08/17/21 [History] Losartan [Cozaar] 50 mg PO DAILY 08/17/21 [History] Sodium Ferric Gluconate Cmplex [Ferrlecit] 1 dose INJECT ASDIRECTED 08/17/21 [History] amLODIPine Besylate [Amlodipine Besylate] 10 mg PO DAILY 08/17/21 [History] doxercalciferoL [Hectorol] 4 mcg INJECT ASDIRECTED 08/17/21 [History] levETIRAcetam [Keppra] 500 mg PO BEDTIME 08/17/21 [History] Past Medical History HEENT History: Reports: Impaired Vision, Other (See Below) Other HEENT History: Wears glasses Cardiovascular History: Reports: High Cholesterol, Hypertension Respiratory History: Reports: Asthma, Pneumonia, Recurrent, Sleep Apnea Other Respiratory History: Seasonal asthma Gastrointestinal History: Reports: Colon Polyp Genitourinary History: Reports: Chronic Renal Insuffiency, Dialysis, Dialysis, Peritoneal, Renal Disease, Other (See Below) Other Genitourinary History: renal failure Musculoskeletal History: Reports: Fracture, Gout Neurological History: Reports: Seizure, Other (See Below) Other Neuro History: tremors, idiopathetic progressive neuropathy, mild cognitive impairment Psychiatric History: Reports: Anxiety, Depression Immunologic History: Reports: Other (See Below) Other Immunologic History: on dialysis Dermatologic History: Reports: Psoriasis - Infectious Disease History Infectious Disease History: Reports: Chicken Pox - Past Surgical History Head Surgeries/Procedures: Reports: None HEENT Surgical History: Reports: Other (See Below) Other HEENT Surgeries/Procedures: deviated spetum surgery x2. GI Surgical History: Reports: Colonoscopy Other GI Surgeries/Procedures: peritoneal dialysis catheter Male Surgical History: Reports: Vasectomy Other Male Surgeries/Procedures: peritoneal dialysis since 2014. Hemodialysis since 2020 Endocrine Surgical History: Reports: None Musculoskeletal Surgical History: Reports: Other (See Below) Other Musculoskeletal Surgeries/Procedures:: right ankle Social & Family History - Family History Family Medical History: No Pertinent Family History - Tobacco Use Tobacco Use Status *Q: Never Tobacco User - Caffeine Use Caffeine Use: Reports: None - Recreational Drug Use Recreational Drug Use: No ED ROS GENERAL - Review of Systems Review Of Systems: See Below Constitutional: Reports: Weakness HEENT: Reports: No Symptoms Respiratory: Reports: No Symptoms Cardiovascular: Reports: Other (pt is very bradicardic. ) Endocrine: Reports: No Symptoms GI/Abdominal: Reports: No Symptoms : Reports: No Symptoms Musculoskeletal: Reports: No Symptoms Skin: Reports: No Symptoms ED EXAM, GI/ABD - Physical Exam Exam: See Below Text/Narrative:: pt arrived with a history of a sudden episode of vomiting, He did not have chest pain. He is on dialysis at [facility]. Exam Limited By: No Limitations General Appearance: Alert, No Apparent Distress, Anxious Ears: Normal TMs Nose: Normal Inspection Throat/Mouth: Normal Inspection Head: Atraumatic Neck: Normal Inspection Respiratory/Chest: No Respiratory Distress GI/Abdominal Exam: Soft, Non-Tender (Male) Exam: Deferred Rectal (Males) Exam: Deferred Back Exam: Normal Inspection Extremities: Normal Inspection Neurological: Alert, Oriented, Normal Cognition Course - Re-Assessments/Exams Free Text/Narrative Re-Assessment/Exam: 08/17/21 18:36 PT ARRIVED AFTER HAVING AN EPISODE OF VOMITING. hE WAS FOUND TO HAVE A HEART RATE OF 36. hE DID NOT HAVE CHEST PAIN hIS LAB WORK LOOKS GOOD EXCEPT A HIGH CREATNINE.. pT HAD A NORMAL MAG. [facility] WAS CALLED AND THERE WERE NO BEDS AVAIABLE. [facility] MAY HAVE A BED AVAIABLE LATER IN THE NITE. pT WILL BE OBSERVED IN er UNTIL BED IS AVASILABLE. 08/17/21 18:36 08/17/21 18:37 08/17/21 19:17 08/18/21 09:34 pt had a stable nite and does remain diane in a complete heart block. He does need dialysis today. He will need a permanent pacemaker. His inderall is on hold. 08/18/21 09:37 08/18/21 09:57 pt has been accepted at [facility] and will be transfered as soon as a bed is avaiable. his regular meds will be given. Inderal is on hold. pt will have d ialysis later today. Departure - Departure Disposition: DC/Tfer to Acute Hospital 02 Condition: Fair Clinical Impression: Complete heart block, Renal insufficiency, History of renal dialysis - Discharge Information Referrals: Gilmar Clarke MD [Primary Care Provider] - Forms: ED Department Discharge Care Plan Goals: transfer to [facility]. Sepsis Event Note (ED) - Evaluation Sepsis Screening Result: No Definite Risk <Clemente Bolden - Last Filed: 08/20/21 18:10> Course - Vital Signs Last Recorded V/S: Last Vital Signs Temp 36.7 C 08/18/21 08:16 Pulse 44 L 08/18/21 11:32 Resp 14 08/18/21 11:32 BP 149/66 H 08/18/21 11:32 Pulse Ox 94 L 08/18/21 11:32 - Orders/Labs/Meds Labs: Laboratory Tests 08/17/21 08/17/21 08/17/21 Range/Units 03:50 17:24 17:35 WBC (4.5-11.0) K/uL RBC (4.30-5.90) M/uL Hgb (12.0-15.0) g/dL Hct (40.0-54.0) % MCV (80-98) fL MCH (27-31) pg MCHC (32-36) % Plt Count (150-400) K/uL Neut % (Auto) (36-66) % Lymph % (Auto) (24-44) % [place] % (Auto) (2-6) % Eos % (Auto) (2-4) % Baso % (Auto) (0-1) % Sodium (140-148) mmol/L Potassium (3.6-5.2) mmol/L Chloride (100-108) mmol/L Carbon Dioxide (21-32) mmol/L Anion Gap (5.0-14.0) mmol/L BUN (7-18) mg/dL Creatinine (0.8-1.3) mg/dL Est Cr Clr Drug Dosing mL/min Estimated GFR (MDRD) (>60) Glucose (74-106) mg/dL Calcium (8.5-10.1) mg/dL Magnesium (1.8-2.4) mg/dL Total Bilirubin (0.2-1.0) mg/dL AST (15-37) U/L ALT (12-78) U/L Alkaline Phosphatase (46-116) U/L Troponin I High Sens 13.3 (<=60.3) pg/mL Total Protein (6.4-8.2) g/dL Albumin (3.4-5.0) g/dL Globulin (2.3-3.5) g/dL Albumin/Globulin Ratio (1.2-2.2) Urine Color Yellow (YELLOW) Urine Appearance Clear (CLEAR) Urine pH 8.5 H (5.0-8.0) Ur Specific [place] 1.020 (1.008-1.030) Urine Protein 100 H (NEGATIVE) mg/dL Urine Glucose (UA) Negative (NEGATIVE) mg/dL Urine Ketones Negative (NEGATIVE) mg/dL Urine Occult Blood Negative (NEGATIVE) Urine Nitrite Negative (NEGATIVE) Urine Bilirubin Negative (NEGATIVE) Urine Urobilinogen 0.2 (0.2-1.0) EU/dL Ur Leukocyte Esterase Negative (NEGATIVE) Urine RBC 0-5 (0-5) Urine WBC 0-5 (0-5) Ur Epithelial Cells Not seen Amorphous Sediment Few Urine Bacteria Rare Urine Mucus Not seen Influenza Type A RNA Negative (NEGATIVE) RSV RNA (INAAT) Negative (NEGATIVE) Influenza Type B RNA Negative (NEGATIVE) SARS-CoV-2 RNA (ASHER) Negative (NEGATIVE) 08/17/21 08/17/21 08/17/21 Range/Units 17:35 17:35 18:30 WBC 12.1 H (4.5-11.0) K/uL RBC 3.24 L (4.30-5.90) M/uL Hgb 10.4 L D (12.0-15.0) g/dL Hct 31.5 L (40.0-54.0) % MCV 97 (80-98) fL MCH 32 H (27-31) pg MCHC 33 (32-36) % Plt Count 270 (150-400) K/uL Neut % (Auto) 69.2 H (36-66) % Lymph % (Auto) 18.4 L (24-44) % Webster % (Auto) 9.8 H (2-6) % Eos % (Auto) 2.4 (2-4) % Baso % (Auto) 0.2 (0-1) % Sodium 132 L (140-148) mmol/L Potassium 5.7 H (3.6-5.2) mmol/L Chloride 90 L (100-108) mmol/L Carbon Dioxide 30 (21-32) mmol/L Anion Gap 17.7 H (5.0-14.0) mmol/L BUN 70 H (7-18) mg/dL Creatinine 7.8 H* (0.8-1.3) mg/dL Est Cr Clr Drug Dosing 6.56 mL/min Estimated GFR (MDRD) 7 L (>60) Glucose 95 (74-106) mg/dL Calcium 9.3 (8.5-10.1) mg/dL Magnesium 2.0 (1.8-2.4) mg/dL Total Bilirubin 0.8 D (0.2-1.0) mg/dL AST 13 L (15-37) U/L ALT 14 (12-78) U/L Alkaline Phosphatase 109 (46-116) U/L Troponin I High Sens (<=60.3) pg/mL Total Protein 7.2 (6.4-8.2) g/dL Albumin 3.1 L (3.4-5.0) g/dL Globulin 4.1 H (2.3-3.5) g/dL Albumin/Globulin Ratio 0.8 L (1.2-2.2) Urine Color (YELLOW) Urine Appearance (CLEAR) Urine pH (5.0-8.0) Ur Specific [place] (1.008-1.030) Urine Protein (NEGATIVE) mg/dL Urine Glucose (UA) (NEGATIVE) mg/dL Urine Ketones (NEGATIVE) mg/dL Urine Occult Blood (NEGATIVE) Urine Nitrite (NEGATIVE) Urine Bilirubin (NEGATIVE) Urine Urobilinogen (0.2-1.0) EU/dL Ur Leukocyte Esterase (NEGATIVE) Urine RBC (0-5) Urine WBC (0-5) Ur Epithelial Cells Amorphous Sediment Urine Bacteria Urine Mucus Influenza Type A RNA (NEGATIVE) RSV RNA (INAAT) (NEGATIVE) Influenza Type B RNA (NEGATIVE) SARS-CoV-2 RNA (ASHER) (NEGATIVE) Meds: Medications Discontinued Medications Generic Name Dose Route Start Last Admin Trade Name Freq PRN Reason Stop Dose Admin Allopurinol 100 mg 08/18/21 09:00 08/18/21 11:42 Allopurinol 100 Mg Tab PO 100 mg BID GLORIA Administration Atorvastatin Calcium 40 mg 08/18/21 21:00 08/18/21 11:43 Atorvastatin 20 Mg Tab PO 40 mg BEDTIME GLORIA Administration Atropine Sulfate 0.5 mg 08/17/21 18:02 08/17/21 18:57 Atropine 0.1 Mg/Ml 10 Ml Syringe IVPUSH 08/17/21 18:03 0.5 mg ONETIME ONE Administration Furosemide 40 mg 08/18/21 09:00 08/18/21 11:42 Furosemide 40 Mg Tab PO 40 mg DAILY GLORIA Administration Gabapentin 400 mg 08/18/21 09:00 08/18/21 11:42 Gabapentin 400 Mg Cap PO 400 mg DAILY GLORIA Administration Levetiracetam 500 mg 08/18/21 21:00 08/18/21 11:43 Levetiracetam 250 Mg Tab PO 500 mg BEDTIME GLORIA Administration Sodium Chloride 10 ml 08/17/21 17:22 08/17/21 17:37 Sodium Chloride 0.9% 10 Ml Syringe FLUSH 10 ml ASDIRECTED PRN Administration Keep Vein Open Venlafaxine HCl 75 mg 08/18/21 09:00 08/18/21 11:43 Venlafaxine 75 Mg Cap.Er PO 75 mg DAILY GLORIA Administration - Re-Assessments/Exams Free Text/Narrative Re-Assessment/Exam: 08/17/21 18:30 [Dr. Bolden] I am assuming care of the patient from Dr. Caruso while awaiting for the patient to transfer to [facility]. I did discuss with the patient his CODE STATUS and he is not interested in having resuscitation involving chest compressions but would undergo intubation and ventilation should it become necessary. 08/18/21 04:21 I called to discuss any update of transfer of the patient to [facility] to start to figure out a plan for the patient as he will need dialysis today and he is in complete heart block. I discussed the case with Julee who is a nurse triage and she was unaware that the patient was in complete heart block and is now put him to the top of the list for transfers. They hope to have discharges this morning and will then arrange for the patient to come to [facility]. This will likely occur after 7 this morning so I will turn the patient back over to Dr. Caruso at 0700 hrs. while awaiting for the transfer. Morgan is been vitally stable except for being in complete heart block through the night. There has been no issues. Departure - Departure Time of Disposition: 12:41
[2021-08-17 18:56] LABS: CORONAVIRUS COVID-19 NAA NEGATIVE (NEGATIVE)
[2021-08-18] MEDS ORDERED: Furosemide 40 MG Tab PO SCH (09:00)
[2021-08-18] MEDS ORDERED: Gabapentin 400 MG Cap PO SCH (09:00)
[2021-08-18] MEDS ORDERED: Venlafaxine 75 MG Cap.ER PO SCH (09:00)
[2021-08-18] MEDS ORDERED: Allopurinol 100 MG Tab PO SCH (09:00)
[2021-08-18 11:33] VITALS: BP 149/66; PULSE 44
--- NOTE | 2021-08-18 12:13 | CR ---
CHEST: Portable 08/17/2021 at 5:40 PM CLINICAL HISTORY:Slow heart rate COMPARISON:None, Findings: The heart size, pulmonary vascularity and hilar structures are normal. No infiltrate effusion or pneumothorax is seen. There is a right jugular central venous double lumen catheter. Tip is in the right atrium IMPRESSION: No acute cardiopulmonary process
[2021-08-18] MEDS ORDERED: atorvaSTATin 20 MG Tab PO SCH (21:00)
[2021-08-18] MEDS ORDERED: levETIRAcetam 250 MG Tab PO SCH (21:00)
== END 2021-08-18 12:41 ==
LOC: JP.ED 14:59
DX: I44.2 Atrioventricular block, complete (principal); I12.9 Hypertensive chronic kidney disease with stage 1 through stage 4 chronic kidney disease, or unspecified chronic kidney disease; N18.9 Chronic kidney disease, unspecified; M10.9 Gout, unspecified; E78.00 Pure hypercholesterolemia, unspecified; Z88.0 Allergy status to penicillin; Z91.040 Latex allergy status; Z88.8 Allergy status to other drugs, medicaments and biological substances; Z79.899 Other long term (current) drug therapy; Z99.2 Dependence on renal dialysis; Z20.822 Contact with and (suspected) exposure to COVID-19
CPT/HCPCS: 0241U; 36415; 71045; 71045-26; 80053; 81001; 83735; 84484; 85025; 93005; 96374; 99285-25; A9270-GY; J0461

== ENCOUNTER 2023-11-16 20:50 | Emergency (ER) | payer MEDICARE, BC ==
[2023-11-16 21:33] LABS: BASOPHILS ABSOLUTE AUTO 0.04 K/uL (0.00-0.10); BASOPHILS PERCENT AUTO 0.3 % (0.1-1.3); EOSINOPHILS ABSOLUTE AUTO 0.09 K/uL (0.00-0.40); EOSINOPHILS PERCENT AUTO 0.6 % (0.0-5.4); HEMATOCRIT 28.9 % (38.4-49.7); HEMOGLOBIN 9.6 g/dL (12.9-16.9); IMMATURE GRAN ABSOLUTE AUTO 0.09 K/uL (0.00-0.23); IMMATURE GRAN PERCENT AUTO 0.6 % (0.0-0.7); LYMPHOCYTES ABSOLUTE AUTO 1.48 K/uL (0.8-3.3); LYMPHOCYTES PERCENT AUTO 9.4 % (11.4-47.7); MEAN CORPUSCULAR HEMOGLOBIN 33.2 pg (31.6-35.5); MEAN CORPUSCULAR HGB CONC 33.2 g/dL (31.6-35.5); MONOCYTES ABSOLUTE AUTO 1.61 K/uL (0.20-0.90); MONOCYTES PERCENT AUTO 10.2 % (3.3-12.6); NEUTROPHILS ABSOLUTE AUTO 12.51 K/uL (1.0-7.6); NEUTROPHILS PERCENT AUTO 78.9 % (40.0-78.1); PLATELET COUNT,PLT 293 K/uL (130-375); RED BLOOD CELL COUNT 2.89 M/uL (4.14-5.76); WHITE BLOOD CELL COUNT,WBC 15.8 K/uL (3.2-11.0)
[2023-11-16 21:53] LABS: A/G RATIO 0.7 (1.2-2.2); ALANINE AMINOTRANSFERASE,ALT 29 U/L (12-78); ALKALINE PHOSPHATASE 103 U/L (46-116); ASPARTATE AMNIOTRANSFERASE,AST 35 U/L (15-37); BILIRUBIN TOTAL 0.5 mg/dL (0.2-1.0); BLOOD UREA NITROGEN,BUN 51 mg/dL (7-18); CALCIUM 9.1 mg/dL (8.5-10.1); CARBON DIOXIDE,CO2 29 mmol/L (21-32); CHLORIDE,CL 97 mmol/L (100-108); EST CRCL DRUG DOSING (CG) 9.27 mL/min; ESTIMATED GFR 8 mL/min (>60); GLUCOSE RANDOM 138 mg/dL (74-106); POTASSIUM,K 4.5 mmol/L (3.6-5.2); PROTEIN TOTAL,TP 7.5 g/dL (6.4-8.2); SODIUM,NA 138 mmol/L (140-148)
[2023-11-16 21:55] LABS: ANION GAP 16.5 mmol/L (5.0-14.0)
[2023-11-16 21:56] LABS: CREATININE 7.1 mg/dL (0.8-1.3)
[2023-11-16 22:48] LABS: CORONAVIRUS COVID-19 NAA NEGATIVE (NEGATIVE); INFLUENZA A NAA NEGATIVE (NEGATIVE); INFLUENZA B NAA NEGATIVE (NEGATIVE); RESPIRATORY SYNCYTIAL VIR NAA NEGATIVE (NEGATIVE)
[2023-11-16] MEDS: Meropenem 1 GM in Sodium Chloride 0.9% 100 ML IV ONE (23:14)
[2023-11-16] MEDS: LORazepam 1 MG Tab PO ONE (23:28)
[2023-11-17] MEDS: Albuterol/Ipratropium 3.0-0.5 MG/3 ML Neb Soln NEB ONE (01:32)
[2023-11-17] MEDS: methylPREDNISolone Sodium Succinate 40 MG/1 ML SDV IVPUSH ONE (01:41)
[2023-11-17] MEDS: Furosemide 40 MG/4 ML VIAL IVPUSH ONE (03:06)
== END 2023-11-17 03:12 | disposition other institution (70) ==
LOC: JP.ED 20:50
DX: I12.0 Hypertensive chronic kidney disease with stage 5 chronic kidney disease or end stage renal disease (principal); N18.6 End stage renal disease; J18.9 Pneumonia, unspecified organism; R09.02 Hypoxemia; E78.00 Pure hypercholesterolemia, unspecified; Z91.040 Latex allergy status; Z88.0 Allergy status to penicillin; Z88.8 Allergy status to other drugs, medicaments and biological substances; Z99.2 Dependence on renal dialysis; Z95.0 Presence of cardiac pacemaker; Z79.899 Other long term (current) drug therapy
CPT/HCPCS: 0241U; 36415; 71045; 80053; 83605; 84145; 85025; 94640; 96365; 96375; 99285; A9270; J1940; J2185; J2920; J3490; J7620

== ENCOUNTER 2024-02-08 00:45 | Emergency (ER) | payer MEDICARE, BC ==
[2024-02-08] MEDS: HYDROmorphone 0.5 MG/0.5 ML Syringe IM ONE (02:21)
[2024-02-08 03:12] LABS: BASOPHILS ABSOLUTE AUTO 0.03 K/uL (0.00-0.10); BASOPHILS PERCENT AUTO 0.2 % (0.1-1.3); EOSINOPHILS PERCENT AUTO 0.1 % (0.0-5.4); HEMATOCRIT 31.8 % (38.4-49.7); HEMOGLOBIN 10.9 g/dL (12.9-16.9); IMMATURE GRAN ABSOLUTE AUTO 0.09 K/uL (0.00-0.23); IMMATURE GRAN PERCENT AUTO 0.5 % (0.0-0.7); LYMPHOCYTES ABSOLUTE AUTO 1.28 K/uL (0.8-3.3); LYMPHOCYTES PERCENT AUTO 6.9 % (11.4-47.7); MEAN CORPUSCULAR HEMOGLOBIN 33.5 pg (31.6-35.5); MEAN CORPUSCULAR HGB CONC 34.3 g/dL (31.6-35.5); MEAN CORPUSCULAR VOLUME 97.8 fL (81.4-99.0); MONOCYTES ABSOLUTE AUTO 1.91 K/uL (0.20-0.90); MONOCYTES PERCENT AUTO 10.3 % (3.3-12.6); NEUTROPHILS ABSOLUTE AUTO 15.18 K/uL (1.0-7.6); PLATELET COUNT,PLT 217 K/uL (130-375); RED BLOOD CELL COUNT 3.25 M/uL (4.14-5.76); WHITE BLOOD CELL COUNT,WBC 18.5 K/uL (3.2-11.0)
[2024-02-08 03:13] LABS: EOSINOPHILS ABSOLUTE AUTO 0.02 K/uL (0.00-0.40)
[2024-02-08 03:35] LABS: A/G RATIO 0.8 (1.2-2.2); ALANINE AMINOTRANSFERASE,ALT 20 U/L (12-78); ALBUMIN 3.5 g/dL (3.4-5.0); ALKALINE PHOSPHATASE 127 U/L (46-116); ASPARTATE AMNIOTRANSFERASE,AST 20 U/L (15-37); BILIRUBIN TOTAL 0.9 mg/dL (0.2-1.0); BLOOD UREA NITROGEN,BUN 28 mg/dL (7-18); CALCIUM 8.5 mg/dL (8.5-10.1); CARBON DIOXIDE,CO2 28 mmol/L (21-32); CHLORIDE,CL 93 mmol/L (100-108); EST CRCL DRUG DOSING (CG) 12.41 mL/min; ESTIMATED GFR 11 mL/min (>60); GLUCOSE RANDOM 135 mg/dL (74-106); POTASSIUM,K 4.5 mmol/L (3.6-5.2); PROTEIN TOTAL,TP 7.9 g/dL (6.4-8.2); SODIUM,NA 132 mmol/L (140-148)
[2024-02-08 03:36] LABS: ANION GAP 15.5 mmol/L (5.0-14.0); CREATININE 5.3 mg/dL (0.8-1.3)
[2024-02-08 16:57] LABS: APPEARANCE,URINE CLEAR (CLEAR); BILIRUBIN,URINE NEGATIVE (NEGATIVE); COLOR,URINE YELLOW (YELLOW); GLUCOSE,URINE NEGATIVE (NEGATIVE); KETONES,URINE NEGATIVE (NEGATIVE); LEUKOCYTE ESTERASE,URINE NEGATIVE (NEGATIVE); NITRITE,URINE NEGATIVE (NEGATIVE); OCCULT BLOOD,URINE TRACE-INTACT (NEGATIVE); PROTEIN,URINE 100 mg/dL (NEGATIVE); UROBILINOGEN,URINE 0.2 EU/dL (0.2-1.0)
[2024-02-08 17:03] LABS: RBC,URINE 0-5 (0-5); WBC,URINE 0-5 (0-5)
[2024-02-08 17:04] LABS: AMORPHOUS SEDIMENT,URINE NOT SEEN; BACTERIA,URINE NOT SEEN; EPITHELIAL CELLS,URINE NOT SEEN; MUCUS,URINE NOT SEEN
== END 2024-02-08 04:48 | disposition home or self-care (01) ==
LOC: JP.ED 00:45
DX: I12.9 Hypertensive chronic kidney disease with stage 1 through stage 4 chronic kidney disease, or unspecified chronic kidney disease (principal); N18.9 Chronic kidney disease, unspecified; D72.829 Elevated white blood cell count, unspecified; M54.9 Dorsalgia, unspecified; E78.00 Pure hypercholesterolemia, unspecified; Z91.040 Latex allergy status; Z88.0 Allergy status to penicillin; Z88.8 Allergy status to other drugs, medicaments and biological substances; Z79.899 Other long term (current) drug therapy; Z95.0 Presence of cardiac pacemaker; Z99.2 Dependence on renal dialysis
CPT/HCPCS: 36415; 71045; 72072; 80053; 81001; 84484; 85025; 93005; 96372; 99284; J1170

== ENCOUNTER 2024-03-29 17:04 | Emergency (ER) | payer MEDICARE, BC ==
[2024-03-29 18:46] LABS: HEMATOCRIT 28.9 % (38.4-49.7); HEMOGLOBIN 9.8 g/dL (12.9-16.9); MEAN CORPUSCULAR HEMOGLOBIN 33.4 pg (31.6-35.5); MEAN CORPUSCULAR HGB CONC 33.9 g/dL (31.6-35.5); MEAN CORPUSCULAR VOLUME 98.6 fL (81.4-99.0); RED BLOOD CELL COUNT 2.93 M/uL (4.14-5.76)
[2024-03-29] MEDS: Ondansetron 4 MG Tab.DIS PO ONE (18:49)
[2024-03-29 19:07] LABS: A/G RATIO 0.7 (1.2-2.2); ALANINE AMINOTRANSFERASE,ALT 9 U/L (12-78); ALBUMIN 3.1 g/dL (3.4-5.0); ALKALINE PHOSPHATASE 100 U/L (46-116); ASPARTATE AMNIOTRANSFERASE,AST 22 U/L (15-37); BILIRUBIN TOTAL 0.6 mg/dL (0.2-1.0); BLOOD UREA NITROGEN,BUN 13 mg/dL (7-18); CALCIUM 7.9 mg/dL (8.5-10.1); CARBON DIOXIDE,CO2 31 mmol/L (21-32); CHLORIDE,CL 96 mmol/L (100-108); EST CRCL DRUG DOSING (CG) 14.62 mL/min; ESTIMATED GFR 13 mL/min (>60); GLUCOSE RANDOM 88 mg/dL (74-106); MAGNESIUM 1.8 mg/dL (1.8-2.4); POTASSIUM,K 3.9 mmol/L (3.6-5.2); PROTEIN TOTAL,TP 7.3 g/dL (6.4-8.2); SODIUM,NA 136 mmol/L (140-148)
[2024-03-29 19:08] LABS: APPEARANCE,URINE CLEAR (CLEAR); BILIRUBIN,URINE NEGATIVE (NEGATIVE); COLOR,URINE YELLOW (YELLOW); GLUCOSE,URINE NEGATIVE (NEGATIVE); KETONES,URINE NEGATIVE (NEGATIVE); LEUKOCYTE ESTERASE,URINE NEGATIVE (NEGATIVE); NITRITE,URINE NEGATIVE (NEGATIVE); OCCULT BLOOD,URINE TRACE-INTACT (NEGATIVE); PH,URINE 8.5 (5.0-8.0); PROTEIN,URINE 100 mg/dL (NEGATIVE); UROBILINOGEN,URINE 0.2 EU/dL (0.2-1.0)
[2024-03-29 19:11] LABS: ANION GAP 12.9 mmol/L (5.0-14.0); CREATININE 4.5 mg/dL (0.8-1.3)
[2024-03-29 19:13] LABS: AMORPHOUS SEDIMENT,URINE NOT SEEN; BACTERIA,URINE NOT SEEN; EPITHELIAL CELLS,URINE NOT SEEN; MUCUS,URINE RARE; RBC,URINE 0-5 (0-5); WBC,URINE 0-5 (0-5)
[2024-03-29 19:45] LABS: CORONAVIRUS COVID-19 NAA NEGATIVE (NEGATIVE); INFLUENZA A NAA NEGATIVE (NEGATIVE); INFLUENZA B NAA NEGATIVE (NEGATIVE); RESPIRATORY SYNCYTIAL VIR NAA NEGATIVE (NEGATIVE)
[2024-03-29] MEDS: Levofloxacin 250 MG Tab PO ONE (19:57)
== END 2024-03-29 20:23 | disposition home or self-care (01) ==
LOC: JP.ED 17:04
DX: J18.9 Pneumonia, unspecified organism (principal); I13.2 Hypertensive heart and chronic kidney disease with heart failure and with stage 5 chronic kidney disease, or end stage renal disease; I50.9 Heart failure, unspecified; N18.6 End stage renal disease; E78.00 Pure hypercholesterolemia, unspecified; Z79.899 Other long term (current) drug therapy; Z95.0 Presence of cardiac pacemaker; Z88.0 Allergy status to penicillin; Z91.040 Latex allergy status; Z88.8 Allergy status to other drugs, medicaments and biological substances; Z99.2 Dependence on renal dialysis
CPT/HCPCS: 0241U; 36415; 71046; 80053; 81001; 83735; 85027; 99285; A9270; Q0162; 99284

== ENCOUNTER 2024-04-17 14:28 | Emergency (ER) | payer MEDICARE, BC ==
[2024-04-17 15:55] LABS: BASOPHILS PERCENT AUTO 0.2 % (0.1-1.3); EOSINOPHILS ABSOLUTE AUTO 0.04 K/uL (0.00-0.40); EOSINOPHILS PERCENT AUTO 0.3 % (0.0-5.4); HEMATOCRIT 25.8 % (38.4-49.7); HEMOGLOBIN 8.8 g/dL (12.9-16.9); IMMATURE GRAN ABSOLUTE AUTO 0.06 K/uL (0.00-0.23); IMMATURE GRAN PERCENT AUTO 0.5 % (0.0-0.7); LYMPHOCYTES ABSOLUTE AUTO 1.06 K/uL (0.8-3.3); LYMPHOCYTES PERCENT AUTO 8.1 % (11.4-47.7); MEAN CORPUSCULAR HEMOGLOBIN 33.1 pg (31.6-35.5); MEAN CORPUSCULAR HGB CONC 34.1 g/dL (31.6-35.5); MONOCYTES ABSOLUTE AUTO 1.23 K/uL (0.20-0.90); MONOCYTES PERCENT AUTO 9.4 % (3.3-12.6); NEUTROPHILS ABSOLUTE AUTO 10.69 K/uL (1.0-7.6); NEUTROPHILS PERCENT AUTO 81.5 % (40.0-78.1); PLATELET COUNT,PLT 219 K/uL (130-375); RED BLOOD CELL COUNT 2.66 M/uL (4.14-5.76); WHITE BLOOD CELL COUNT,WBC 13.1 K/uL (3.2-11.0)
[2024-04-17 15:56] LABS: BASOPHILS ABSOLUTE AUTO 0.02 K/uL (0.00-0.10)
[2024-04-17 16:10] LABS: C-REACTIVE PROTEIN 20.94 mg/dL (<0.50); CALCIUM 8.1 mg/dL (8.5-10.1); EST CRCL DRUG DOSING (CG) 16.45 mL/min; POTASSIUM,K 3.6 mmol/L (3.6-5.2)
[2024-04-17 16:17] LABS: ANION GAP 12.6 mmol/L (5.0-14.0)
[2024-04-17] MEDS: Levofloxacin 250 MG Tab PO ONE (17:53)
== END 2024-04-17 18:23 | disposition home or self-care (01) ==
LOC: JP.ED 14:28
DX: J18.9 Pneumonia, unspecified organism (principal); I13.2 Hypertensive heart and chronic kidney disease with heart failure and with stage 5 chronic kidney disease, or end stage renal disease; I50.9 Heart failure, unspecified; N18.6 End stage renal disease; E78.00 Pure hypercholesterolemia, unspecified; Z99.2 Dependence on renal dialysis; Z95.0 Presence of cardiac pacemaker; Z79.899 Other long term (current) drug therapy; Z79.51 Long term (current) use of inhaled steroids; Z88.0 Allergy status to penicillin; Z91.040 Latex allergy status; Z88.8 Allergy status to other drugs, medicaments and biological substances
CPT/HCPCS: 36415; 71046; 80048; 85025; 86140; 87651; 99285; A9270; U0002

== ENCOUNTER 2024-08-11 16:12 | Emergency (ER) | payer MEDICARE, BC ==
[2024-08-11 16:53] LABS: BASOPHILS PERCENT AUTO 0.3 % (0.1-1.3); EOSINOPHILS ABSOLUTE AUTO 0.19 K/uL (0.00-0.40); EOSINOPHILS PERCENT AUTO 2.8 % (0.0-5.4); HEMATOCRIT 30.1 % (38.4-49.7); HEMOGLOBIN 10.4 g/dL (12.9-16.9); IMMATURE GRAN PERCENT AUTO 0.1 % (0.0-0.7); LYMPHOCYTES ABSOLUTE AUTO 0.94 K/uL (0.8-3.3); LYMPHOCYTES PERCENT AUTO 14.1 % (11.4-47.7); MEAN CORPUSCULAR HEMOGLOBIN 33.7 pg (31.6-35.5); MEAN CORPUSCULAR HGB CONC 34.6 g/dL (31.6-35.5); MEAN CORPUSCULAR VOLUME 97.4 fL (81.4-99.0); MONOCYTES ABSOLUTE AUTO 0.88 K/uL (0.20-0.90); MONOCYTES PERCENT AUTO 13.2 % (3.3-12.6); NEUTROPHILS ABSOLUTE AUTO 4.64 K/uL (1.0-7.6); NEUTROPHILS PERCENT AUTO 69.5 % (40.0-78.1); PLATELET COUNT,PLT 167 K/uL (130-375); RED BLOOD CELL COUNT 3.09 M/uL (4.14-5.76); WHITE BLOOD CELL COUNT,WBC 6.7 K/uL (3.2-11.0)
[2024-08-11 16:58] LABS: BASOPHILS ABSOLUTE AUTO 0.02 K/uL (0.00-0.10); IMMATURE GRAN ABSOLUTE AUTO 0.01 K/uL (0.00-0.23)
[2024-08-11 17:09] LABS: EST CRCL DRUG DOSING (CG) 14.3 mL/min; MAGNESIUM 1.8 mg/dL (1.8-2.4); POTASSIUM,K 3.8 mmol/L (3.6-5.2)
[2024-08-11 17:13] LABS: ANION GAP 9.8 mmol/L (5.0-14.0)
[2024-08-11 17:14] LABS: CREATININE 4.6 mg/dL (0.8-1.3)
== END 2024-08-11 20:29 ==
LOC: JP.ED 16:12
DX: I13.2 Hypertensive heart and chronic kidney disease with heart failure and with stage 5 chronic kidney disease, or end stage renal disease (principal); I50.9 Heart failure, unspecified; N18.6 End stage renal disease; R79.89 Other specified abnormal findings of blood chemistry; E78.00 Pure hypercholesterolemia, unspecified; J45.909 Unspecified asthma, uncomplicated; Z88.0 Allergy status to penicillin; Z88.8 Allergy status to other drugs, medicaments and biological substances; Z91.040 Latex allergy status; Z79.899 Other long term (current) drug therapy; Z99.2 Dependence on renal dialysis
CPT/HCPCS: 36415; 71045; 71045-26; 80048; 83605; 83735; 84484; 85025; 93005; 93010; 99285

== ENCOUNTER 2024-09-08 17:37 | Emergency (ER) | payer MEDICARE, BC ==
[2024-09-08] MEDS: fentaNYL 50 MCG/ML SDV IM ONE (19:06)
== END 2024-09-08 19:42 | disposition home or self-care (01) ==
LOC: JP.ED 17:37
DX: S22.31XA Fracture of one rib, right side, initial encounter for closed fracture (principal); I13.0 Hypertensive heart and chronic kidney disease with heart failure and stage 1 through stage 4 chronic kidney disease, or unspecified chronic kidney disease; I50.9 Heart failure, unspecified; J45.909 Unspecified asthma, uncomplicated; N18.9 Chronic kidney disease, unspecified; E78.00 Pure hypercholesterolemia, unspecified; Z88.0 Allergy status to penicillin; Z91.040 Latex allergy status; Z88.8 Allergy status to other drugs, medicaments and biological substances; Z79.899 Other long term (current) drug therapy; W19.XXXA Unspecified fall, initial encounter
CPT/HCPCS: 71250; 74176; 96372; 99283; J3010; 99284

== ENCOUNTER 2024-12-14 08:11 | Day surgery (SDC) | payer MEDICARE, BC ==
[2024-12-14] MEDS: Sodium Chloride 0.9% 10 ML Syringe FLUSH PRN (08:50)
== END 2024-12-14 09:45 | disposition home or self-care (01) ==
LOC: JP.SDS 08:11
PROVIDERS: ATTEND Ophthalmology
DX: H25.11 Age-related nuclear cataract, right eye (principal); J45.909 Unspecified asthma, uncomplicated; I10 Essential (primary) hypertension
CPT/HCPCS: 66984; V2632; 00142-QZ

== ENCOUNTER 2024-12-15 17:56 | Emergency (ER) | payer MEDICARE, BC ==
[2024-12-15 19:20] LABS: BASOPHILS ABSOLUTE AUTO 0.03 K/uL (0.00-0.10); BASOPHILS PERCENT AUTO 0.2 % (0.1-1.3); EOSINOPHILS ABSOLUTE AUTO 0.17 K/uL (0.00-0.40); EOSINOPHILS PERCENT AUTO 1.4 % (0.0-5.4); HEMOGLOBIN 9.7 g/dL (12.9-16.9); IMMATURE GRAN ABSOLUTE AUTO 0.05 K/uL (0.00-0.23); IMMATURE GRAN PERCENT AUTO 0.4 % (0.0-0.7); LYMPHOCYTES ABSOLUTE AUTO 1.25 K/uL (0.8-3.3); MEAN CORPUSCULAR HEMOGLOBIN 33.6 pg (31.6-35.5); MEAN CORPUSCULAR HGB CONC 33.4 g/dL (31.6-35.5); MEAN CORPUSCULAR VOLUME 100.3 fL (81.4-99.0); MONOCYTES ABSOLUTE AUTO 0.94 K/uL (0.20-0.90); MONOCYTES PERCENT AUTO 7.5 % (3.3-12.6); NEUTROPHILS ABSOLUTE AUTO 10.11 K/uL (1.0-7.6); NEUTROPHILS PERCENT AUTO 80.5 % (40.0-78.1); PLATELET COUNT,PLT 166 K/uL (130-375); RED BLOOD CELL COUNT 2.89 M/uL (4.14-5.76); WHITE BLOOD CELL COUNT,WBC 12.6 K/uL (3.2-11.0)
[2024-12-15 19:40] LABS: EST CRCL DRUG DOSING (CG) 17.23 mL/min; POTASSIUM,K 3.6 mmol/L (3.6-5.2)
[2024-12-15 19:45] LABS: ANION GAP 12.6 mmol/L (5.0-14.0); CALCIUM 8.6 mg/dL (8.5-10.1)
[2024-12-15 19:46] LABS: CREATININE 3.5 mg/dL (0.8-1.3)
[2024-12-15] MEDS ORDERED: Naloxone 0.4 MG/ML SDV IVPUSH PRN (21:08)
[2024-12-15] MEDS: HYDROmorphone 0.5 MG/0.5 ML Syringe IM ONE (21:30)
== END 2024-12-15 22:50 | disposition home or self-care (01) ==
LOC: JP.ED 17:56
DX: M25.552 Pain in left hip (principal); I13.2 Hypertensive heart and chronic kidney disease with heart failure and with stage 5 chronic kidney disease, or end stage renal disease; I50.9 Heart failure, unspecified; N18.6 End stage renal disease; E78.00 Pure hypercholesterolemia, unspecified; Z91.040 Latex allergy status; Z88.0 Allergy status to penicillin; Z88.8 Allergy status to other drugs, medicaments and biological substances; Z79.899 Other long term (current) drug therapy; Z95.0 Presence of cardiac pacemaker; Z99.2 Dependence on renal dialysis; W18.39XA Other fall on same level, initial encounter; Y93.89 Activity, other specified
CPT/HCPCS: 36415; 70450; 72125; 73502-26-LT; 73502-LT; 73700-LT; 76377; 80048; 85025; 93005; 96372; 99285

== ENCOUNTER 2024-12-19 06:26 | Emergency (ER) | payer MEDICARE, BC ==
[2024-12-19 06:54] LABS: BASOPHILS PERCENT AUTO 0.2 % (0.1-1.3); EOSINOPHILS ABSOLUTE AUTO 0.32 K/uL (0.00-0.40); EOSINOPHILS PERCENT AUTO 3.2 % (0.0-5.4); HEMATOCRIT 25.4 % (38.4-49.7); HEMOGLOBIN 8.7 g/dL (12.9-16.9); IMMATURE GRAN ABSOLUTE AUTO 0.04 K/uL (0.00-0.23); IMMATURE GRAN PERCENT AUTO 0.4 % (0.0-0.7); LYMPHOCYTES ABSOLUTE AUTO 1.22 K/uL (0.8-3.3); LYMPHOCYTES PERCENT AUTO 12.4 % (11.4-47.7); MEAN CORPUSCULAR HEMOGLOBIN 34.3 pg (31.6-35.5); MEAN CORPUSCULAR HGB CONC 34.3 g/dL (31.6-35.5); MONOCYTES ABSOLUTE AUTO 1.02 K/uL (0.20-0.90); MONOCYTES PERCENT AUTO 10.3 % (3.3-12.6); NEUTROPHILS ABSOLUTE AUTO 7.24 K/uL (1.0-7.6); NEUTROPHILS PERCENT AUTO 73.5 % (40.0-78.1); PLATELET COUNT,PLT 171 K/uL (130-375); RED BLOOD CELL COUNT 2.54 M/uL (4.14-5.76); WHITE BLOOD CELL COUNT,WBC 9.9 K/uL (3.2-11.0)
[2024-12-19 07:07] LABS: BASOPHILS ABSOLUTE AUTO 0.02 K/uL (0.00-0.10)
[2024-12-19 07:08] LABS: CALCIUM 9.6 mg/dL (8.5-10.1); EST CRCL DRUG DOSING (CG) 6.48 mL/min; POTASSIUM,K 4.9 mmol/L (3.6-5.2)
[2024-12-19 07:12] LABS: ANION GAP 17.9 mmol/L (5.0-14.0)
[2024-12-19 07:13] LABS: CREATININE 9.3 mg/dL (0.8-1.3)
[2024-12-19] MEDS: fentaNYL 50 MCG/ML SDV IVPUSH ONE (08:40)
== END 2024-12-19 11:10 | disposition other institution (70) ==
LOC: JP.ED 06:26
DX: S72.145A Nondisplaced intertrochanteric fracture of left femur, initial encounter for closed fracture (principal); I13.0 Hypertensive heart and chronic kidney disease with heart failure and stage 1 through stage 4 chronic kidney disease, or unspecified chronic kidney disease; N18.5 Chronic kidney disease, stage 5; I50.9 Heart failure, unspecified; J45.909 Unspecified asthma, uncomplicated; Z90.49 Acquired absence of other specified parts of digestive tract; Z79.899 Other long term (current) drug therapy; Z88.0 Allergy status to penicillin; Z91.040 Latex allergy status; Z88.8 Allergy status to other drugs, medicaments and biological substances; W18.2XXA Fall in (into) shower or empty bathtub, initial encounter
CPT/HCPCS: 36415; 73502; 73700; 80048; 85025; 96374; 99285; J3010

== ENCOUNTER 2025-03-01 07:39 | Emergency (ER) | payer MEDICARE, BC ==
[2025-03-01 08:48] LABS: BASOPHILS ABSOLUTE AUTO 0.04 K/uL (0.00-0.10); BASOPHILS PERCENT AUTO 0.4 % (0.1-1.3); EOSINOPHILS ABSOLUTE AUTO 0.29 K/uL (0.00-0.40); EOSINOPHILS PERCENT AUTO 2.7 % (0.0-5.4); IMMATURE GRAN ABSOLUTE AUTO 0.05 K/uL (0.00-0.23); IMMATURE GRAN PERCENT AUTO 0.5 % (0.0-0.7); LYMPHOCYTES ABSOLUTE AUTO 1.26 K/uL (0.8-3.3); LYMPHOCYTES PERCENT AUTO 11.6 % (11.4-47.7); MONOCYTES ABSOLUTE AUTO 1.00 K/uL (0.20-0.90); MONOCYTES PERCENT AUTO 9.2 % (3.3-12.6); NEUTROPHILS ABSOLUTE AUTO 8.20 K/uL (1.0-7.6); NEUTROPHILS PERCENT AUTO 75.6 % (40.0-78.1); PLATELET COUNT,PLT 214 K/uL (130-375); RED BLOOD CELL COUNT 2.45 M/uL (4.14-5.76); WHITE BLOOD CELL COUNT,WBC 10.8 K/uL (3.2-11.0)
[2025-03-01 09:16] LABS: A/G RATIO 0.5 (1.2-2.2); ALANINE AMINOTRANSFERASE,ALT 23 U/L (12-78); ASPARTATE AMNIOTRANSFERASE,AST 19 U/L (15-37); BILIRUBIN TOTAL 0.7 mg/dL (0.2-1.0); BLOOD UREA NITROGEN,BUN 32 mg/dL (7-18); CARBON DIOXIDE,CO2 33 mmol/L (21-32); CHLORIDE,CL 93 mmol/L (100-108); EST CRCL DRUG DOSING (CG) 13.99 mL/min; ESTIMATED GFR 13 mL/min (>60); GLUCOSE RANDOM 84 mg/dL (74-106); POTASSIUM,K 4.8 mmol/L (3.6-5.2); PROTEIN TOTAL,TP 6.9 g/dL (6.4-8.2); SODIUM,NA 132 mmol/L (140-148); TROPONIN I HIGH SENSITIVITY 50.7 pg/mL (<=60.3)
[2025-03-01 09:23] LABS: CREATININE 4.4 mg/dL (0.8-1.3)
[2025-03-01 09:46] LABS: PRO B-TYPE NATRIUR PEPT,BNPPRO > 35000 pg/mL (5-125)
[2025-03-01] MEDS: Bumetanide 1 MG/4 ML MDV IVPUSH ONE (10:49)
[2025-03-01] MEDS: Sodium Chloride 0.9% 10 ML Syringe FLUSH PRN (10:49)
== END 2025-03-01 13:39 | disposition home or self-care (01) ==
LOC: JP.ED 07:39
DX: I13.2 Hypertensive heart and chronic kidney disease with heart failure and with stage 5 chronic kidney disease, or end stage renal disease (principal); I50.9 Heart failure, unspecified; N18.6 End stage renal disease; E78.00 Pure hypercholesterolemia, unspecified; J45.909 Unspecified asthma, uncomplicated; Z88.0 Allergy status to penicillin; Z88.8 Allergy status to other drugs, medicaments and biological substances; Z91.040 Latex allergy status; Z79.51 Long term (current) use of inhaled steroids; Z79.899 Other long term (current) drug therapy; Z99.2 Dependence on renal dialysis
CPT/HCPCS: 36415; 71046; 80053; 83605; 83880; 84484; 85025; 96374; 99285; J3490; 99284

== ENCOUNTER 2025-03-10 14:03 | Emergency (ER) | payer MEDICARE, BC | END 2025-03-10 15:05 | disposition left against medical advice (07) | LOC: JP.ED 14:03 | DX: Z53.21 Procedure and treatment not carried out due to patient leaving prior to being seen by health care provider (principal) ==

== ENCOUNTER 2025-06-10 09:35 | Emergency (ER) | payer MEDICARE, BC | END 2025-06-10 11:11 | disposition home or self-care (01) | LOC: JP.ED 09:35 | DX: K02.9 Dental caries, unspecified (principal); I11.0 Hypertensive heart disease with heart failure; I50.9 Heart failure, unspecified; E78.00 Pure hypercholesterolemia, unspecified; J45.909 Unspecified asthma, uncomplicated; Z88.0 Allergy status to penicillin; Z88.8 Allergy status to other drugs, medicaments and biological substances; Z91.040 Latex allergy status; Z79.899 Other long term (current) drug therapy | CPT/HCPCS: 99283 ==

== ENCOUNTER 2025-07-01 11:01 | Emergency (ER) | payer MEDICARE, BC | END 2025-07-01 11:54 | disposition home or self-care (01) | LOC: JP.ED 11:01 | DX: J40 Bronchitis, not specified as acute or chronic (principal); I13.0 Hypertensive heart and chronic kidney disease with heart failure and stage 1 through stage 4 chronic kidney disease, or unspecified chronic kidney disease; N18.6 End stage renal disease; I50.9 Heart failure, unspecified; Z99.2 Dependence on renal dialysis; Z88.0 Allergy status to penicillin; Z91.040 Latex allergy status; Z88.8 Allergy status to other drugs, medicaments and biological substances; Z79.899 Other long term (current) drug therapy | CPT/HCPCS: 99283 ==

== ENCOUNTER 2025-07-12 08:10 | Emergency (ER) | payer MEDICARE, BC | END 2025-07-12 09:35 | disposition home or self-care (01) | LOC: JP.ED 08:10 | DX: J40 Bronchitis, not specified as acute or chronic (principal); I12.0 Hypertensive chronic kidney disease with stage 5 chronic kidney disease or end stage renal disease; N18.5 Chronic kidney disease, stage 5; E78.00 Pure hypercholesterolemia, unspecified; J44.9 Chronic obstructive pulmonary disease, unspecified; Z91.040 Latex allergy status; Z95.0 Presence of cardiac pacemaker; Z88.0 Allergy status to penicillin; Z88.8 Allergy status to other drugs, medicaments and biological substances; Z79.899 Other long term (current) drug therapy | CPT/HCPCS: 99283 ==

== ENCOUNTER 2025-07-23 14:31 | Emergency (ER) | payer MEDICARE, BC ==
[2025-07-23] MEDS: Ondansetron 4 MG Tab.DIS PO ONE (16:38)
[2025-07-23 16:41] LABS: BASOPHILS ABSOLUTE AUTO 0.05 K/uL (0.00-0.10); BASOPHILS PERCENT AUTO 0.4 % (0.1-1.3); EOSINOPHILS ABSOLUTE AUTO 0.25 K/uL (0.00-0.40); EOSINOPHILS PERCENT AUTO 2.1 % (0.0-5.4); IMMATURE GRAN ABSOLUTE AUTO 0.05 K/uL (0.00-0.23); IMMATURE GRAN PERCENT AUTO 0.4 % (0.0-0.7); LYMPHOCYTES ABSOLUTE AUTO 1.91 K/uL (0.8-3.3); LYMPHOCYTES PERCENT AUTO 16.3 % (11.4-47.7); MONOCYTES ABSOLUTE AUTO 1.34 K/uL (0.20-0.90); MONOCYTES PERCENT AUTO 11.4 % (3.3-12.6); NEUTROPHILS ABSOLUTE AUTO 8.11 K/uL (1.0-7.6); NEUTROPHILS PERCENT AUTO 69.4 % (40.0-78.1); PLATELET COUNT,PLT 324 K/uL (130-375); RED BLOOD CELL COUNT 3.34 M/uL (4.14-5.76); WHITE BLOOD CELL COUNT,WBC 11.7 K/uL (3.2-11.0)
[2025-07-23 17:02] LABS: A/G RATIO 0.5 (1.2-2.2); ALANINE AMINOTRANSFERASE,ALT 14 U/L (12-78); ASPARTATE AMNIOTRANSFERASE,AST 19 U/L (15-37); BILIRUBIN TOTAL 0.7 mg/dL (0.2-1.0); BLOOD UREA NITROGEN,BUN 20 mg/dL (7-18); CARBON DIOXIDE,CO2 33 mmol/L (21-32); CHLORIDE,CL 92 mmol/L (100-108); EST CRCL DRUG DOSING (CG) 15.58 mL/min; ESTIMATED GFR 15 mL/min (>60); GLUCOSE RANDOM 92 mg/dL (74-106); POTASSIUM,K 3.7 mmol/L (3.6-5.2); PROTEIN TOTAL,TP 8.3 g/dL (6.4-8.2); SODIUM,NA 133 mmol/L (140-148)
[2025-07-23 17:03] LABS: CREATININE 3.9 mg/dL (0.8-1.3)
== END 2025-07-23 19:45 | disposition home or self-care (01) ==
LOC: JP.ED 14:31
DX: J45.909 Unspecified asthma, uncomplicated (principal); I12.0 Hypertensive chronic kidney disease with stage 5 chronic kidney disease or end stage renal disease; N18.6 End stage renal disease; E78.00 Pure hypercholesterolemia, unspecified; Z91.040 Latex allergy status; Z88.0 Allergy status to penicillin; Z88.8 Allergy status to other drugs, medicaments and biological substances; Z79.899 Other long term (current) drug therapy; Z95.0 Presence of cardiac pacemaker
CPT/HCPCS: 36415; 71046; 80053; 85025; 94640; 99284; A9270; J7512; Q0162

== ENCOUNTER 2025-08-01 08:46 | Emergency (ER) | payer MEDICARE, BC ==
[2025-08-01 09:54] LABS: BASE EXCESS ARTERIAL 4.2 mm/L; BICARBONATE,ARTERIAL 27.1 mmol/L (22.0-26.0); O2 SATURATION ARTERIAL 90.7 % (95.0-98.0); OXYHEMOGLOBIN 88.1 %; PCO2 ARTERIAL 34.9 mmHg (35.0-42.0); PO2 ARTERIAL 62.8 mmHg (75.0-100.0); TOTAL HEMOGLOBIN 9.9 g/dL (13.5-18.0)
[2025-08-01 10:17] LABS: BASOPHILS PERCENT AUTO 0.1 % (0.1-1.3); EOSINOPHILS PERCENT AUTO 0.1 % (0.0-5.4); IMMATURE GRAN ABSOLUTE AUTO 0.09 K/uL (0.00-0.23); IMMATURE GRAN PERCENT AUTO 0.6 % (0.0-0.7); LYMPHOCYTES ABSOLUTE AUTO 0.92 K/uL (0.8-3.3); LYMPHOCYTES PERCENT AUTO 6.3 % (11.4-47.7); MONOCYTES ABSOLUTE AUTO 1.27 K/uL (0.20-0.90); MONOCYTES PERCENT AUTO 8.7 % (3.3-12.6); NEUTROPHILS ABSOLUTE AUTO 12.29 K/uL (1.0-7.6); NEUTROPHILS PERCENT AUTO 84.2 % (40.0-78.1); PLATELET COUNT,PLT 238 K/uL (130-375); RED BLOOD CELL COUNT 2.97 M/uL (4.14-5.76); WHITE BLOOD CELL COUNT,WBC 14.6 K/uL (3.2-11.0)
[2025-08-01] MEDS: Ondansetron 4 MG/2 ML SDV IVPUSH ONE ×2 (10:17→18:26)
[2025-08-01 10:22] LABS: BASOPHILS ABSOLUTE AUTO 0.02 K/uL (0.00-0.10); EOSINOPHILS ABSOLUTE AUTO 0.01 K/uL (0.00-0.40)
[2025-08-01 10:45] LABS: A/G RATIO 0.7 (1.2-2.2); ALANINE AMINOTRANSFERASE,ALT 24 U/L (12-78); ASPARTATE AMNIOTRANSFERASE,AST 28 U/L (15-37); BILIRUBIN TOTAL 1.0 mg/dL (0.2-1.0); BLOOD UREA NITROGEN,BUN 52 mg/dL (7-18); CARBON DIOXIDE,CO2 30 mmol/L (21-32); CHLORIDE,CL 92 mmol/L (100-108); EST CRCL DRUG DOSING (CG) 9.66 mL/min; ESTIMATED GFR 9 mL/min (>60); GLUCOSE RANDOM 103 mg/dL (74-106); POTASSIUM,K 5.7 mmol/L (3.6-5.2); PROTEIN TOTAL,TP 7.5 g/dL (6.4-8.2); SODIUM,NA 134 mmol/L (140-148)
[2025-08-01 10:52] LABS: INR 1.2
[2025-08-01 11:03] LABS: CORONAVIRUS COVID-19 NAA NEGATIVE (NEGATIVE); INFLUENZA A NAA NEGATIVE (NEGATIVE); INFLUENZA B NAA NEGATIVE (NEGATIVE); RESPIRATORY SYNCYTIAL VIR NAA NEGATIVE (NEGATIVE)
[2025-08-01 11:14] LABS: CREATININE 6.2 mg/dL (0.8-1.3)
[2025-08-01] MEDS: Calcium Chloride 10% 1 GM/10 ML Syringe IVPUSH ONE (19:27)
== END 2025-08-01 20:33 ==
LOC: JP.ED 08:46
DX: R11.2 Nausea with vomiting, unspecified (principal); R19.7 Diarrhea, unspecified; J18.9 Pneumonia, unspecified organism; E87.5 Hyperkalemia; E87.3 Alkalosis; I12.9 Hypertensive chronic kidney disease with stage 1 through stage 4 chronic kidney disease, or unspecified chronic kidney disease; N18.9 Chronic kidney disease, unspecified; J45.909 Unspecified asthma, uncomplicated; Z95.0 Presence of cardiac pacemaker; Z79.899 Other long term (current) drug therapy; Z91.040 Latex allergy status; Z88.0 Allergy status to penicillin; Z88.8 Allergy status to other drugs, medicaments and biological substances
CPT/HCPCS: 36415; 36600; 71045; 80053; 82803; 83605; 83735; 83880; 84484; 85025; 85610; 86140; 87040; 87637; 93005; 96361; 96365; 96374; 96375; 96376; 99285; A9270; J0696; J2405; J7030